=== PATIENT | male | born 1965 | race Caucasian/White ===

== ENCOUNTER → 2022-03-12 10:37 | Outpatient (BNVA) | payer OTHER, SELFPAY | PROVIDERS: PCP Internal Medicine; Visit Provider Psychiatry & Neurology Psychiatry | DX: F31.81 Bipolar II disorder (principal); F41.8 Other specified anxiety disorders; F10.21 Alcohol dependence, in remission; Z63.0 Problems in relationship with spouse or partner | CPT/HCPCS: 90833 ==

== ENCOUNTER → 2022-08-30 13:26 | Outpatient (BNVA) | payer OTHER, SELFPAY | PROVIDERS: PCP Internal Medicine; Visit Provider Psychiatry & Neurology Psychiatry | DX: Z13.89 Encounter for screening for other disorder (principal) ==

== ENCOUNTER 2022-12-05 12:52 | Outpatient (AMB) | payer OTHER, SELFPAY ==
--- NOTE | 2022-12-05 12:28 | A.OFFPSYCH_ITS ---
Intake Intake Visit Reasons: DEPRESSION Allergies iron [IRON] Allergy (Severe, Unverified 01/20/20 18:11) UNKNOWN HPI- Psychiatric Chief Complaint: DEPRESSION HPI Narrative: Patient seen in tele health appointment had asked him to come in person. Has been in the past over using clonazepam intermittently and we have discussed need to get appropriate treatment for bipolar disorder. Patient has been more agreeable states he occasionally uses Seroquel at bedtime but not taking it regularly. There is a lot of stress on his plate 1 daughter has an eating disorder he has been managing his children and his has a chronic cardiac condition according to him irritability and reactivity. He denies SI describes periods of decreased need for sleep in the past more periods of euphoria with decreased need for sleep and increased spending periods of anxiety dysphoria decreased need for sleep denies SI or psychotic symptoms the patient has in the past been on lithium Depakote Lamictal Trileptal. The patient does have a therapist He has been involved with and overwhelmed at times of medical complications from both spinal surgery and hip surgery Past Psychiatric History: 49 yo male returns for followup. Has not been seen since July 2014. The patient has been off Trileptal for the past 3 months. His a history of bipolar disorder, marked by periods of depression, and elevated mood state, particularly in the spring and summer. In the past. She would self medicate with alcohol, but has been sober for one year. He is meditating trying to get regular. Sleep, and manage his stress in such a way as to not trigger. His bipolar disorder. 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 Has been working in [email or web address] with drissDenise poole/ Pt is dealing with the of his father over past yr Pt has been in therapy still feels stable , balancing family and work. works pt supportive family and [facility]. 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 Mild expensive periods and mild depressive periods. He is generally able to manage his life trying to work at work balance. Things at home and work are going well. No psychotic episodes, no serious depressive episodes. Patient does have Seroquel as needed. He does use Klonopin for sleep and breakthrough hypomaniaPatient also uses for stroll for sleep. No recent use of mood stabilizing agents such as Trileptal past treatment with lithium. 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 His has been having significant medical difficulty in the patient was forced to resign from his work so he could be home in take care of t he children. His is currently out of work. He has generally not been taking Trileptal or SeroquelHe denies any civic significant depressive episodes some mild periods practically of the winter occasional hypomanic periods. 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 This is a tele health appointment patient gives consent. Patient has been overwhelmed and stress with multiple factors. His has problems with chronic pericarditis in supraventricular tachycardia and has chronic pain causing significant irritability, health problems and stress. The patient had also been in a hypomanic state and bought a number of expensive cars on credit and this has been somewhat crushing to him and has been overwhelming. Difficulty with sleep and anxiety. No thoughts of self-harm. Patient remains sober. Clonazepam has been helpful. Only taking limited amounts of Seroquel. Chronically has avoided mood stabilizing agents because of significant weight gain lethargy. 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 Has limited support and help at this time. Current note for 07/06/2020 Patient seen in psychiatric follow-up. The patient's mood at this point has been chronically anxious cycling with periods of agitation irritability periods of insomnia but patient basically maintaining his functioning ability to manage his business and his children. He is on clonazepam at HS strongly urged regular use of Seroquel at bedtime has not wanted to go back on other mood stabilizing agents such as lithium Depakote Tegretol. He denies periods of marked impulsive overspending he states he has been managing the family's finances he last year over spent on investment in exotic cars. Strongly urged regular sleep habits patient denies regular alcohol use which has been a problem in the past. 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 Patient has generally not been willing to take a mood stabilizing agent stated they were all to sedating made him lethargic or significant weight gain. He does intermittently take Seroquel we have talked about taking Seroquel on a regular basis had to try and train his sleep. Patient denies thoughts of harm to himself or others. He states he is able to function does count on his periods of hypomania past alcohol use and self- medication denies currently Current note for 02/27/2021 Patient seen in psychiatric follow-up Patient has been difficult time he tends to be quite stoic his had been out with surgery feeling overwhelmed taking care of her taking care of kids. Has had more anxiety ir ritability periods of cycling. He has not been willing essentially to use any treatment mood stabilizing agents has felt in the past that they were Sav have him emotionally or cause severe weight gain. The patient has periods of despair he denies any active thoughts of self-harm. His also been having significant pain and feels he has not been giving answers from his physician. May need hip surgery. Patient denies that he has been actively drinking. Patient continues to supervise his children has been dealing with his 's chronic illness and myocarditis pericarditis which they have been unable to manage. She had recent surgery this disc 0 okay. The patient with some periods of mixed states he denies any thoughts of self-harm. He does continue to sees therapist regularly we have discussed how over time bipolar disorder cannot just be managed through counseling alone Had bad experiences with medication the past he has been accepting low-dose Seroquel intermittently clonazepam. For hoping to train sleep. Patient again adamantly denies any thoughts of harm to himself or others despite feeling overwhelmed and upset over what orthopedic surgery may mean for him. current note for 04/11/21 Pt seen in f/u mood improved dealing with issues in better way pt on steroid taper did not become manic took 100 mg hs seroquel while on steroids . Patient's also participated stated patient was doing better cyst seen more able to handle things did have periods of anxiety with prednisone and agitation. We have discussed need for managing sleep-wake cycle and bipolar disorder. The patient did eventually require back surgery he is recovering Current note for June 06, 2021 Patient seen psychiatric follow-up. The patient continues to have some degree of anxiety feels somewhat overwhelmed. He did have recent surgery Mental Status Exam Mental Status Exam Patient Appearance: Well Grooomed Patient Orientation: Person, Place, Time and Situation Level of Consciousness: Awake Patient Behavior: Appropriate Mood Description: Constricted, Depressed and Anxious Affect Description: Constricted Patient Cognition Impaired: No Ability to Follow Directions: Good Speech Pattern: Clear Memory Description: Intact Hallucinations: None Delusions: Not Present Thought Process: Intact Thought Content: positive for Intact, positive for Logical, negative for Suicidal Ideation or negative for Homicidal Ideation Depressive Symptoms: Increased Anxiety and Unhappiness Judgement and Insight: Some degree of impaired judgment regarding not integrating greater treatment for his bipolar disorder Telehealth Telehealth Location of provider rendering services: practice address Location of patient: address on file Patient Identification confirmed using: Name, : Yes Telehealth method: video Patient verbally consented to billing insurance company: Yes Patient informed of any privacy concerns related to visit: Yes Minutes spent on Phone/Video with Pt.: 24 Assessment and Plan Assessment & Plan (1) Bipolar 2 disorder: Status: Acute Code(s): F31.81 - Bipolar II disorder Plan The patient able to do labs taking Seroquel on a more regular basis discuss trying to lower clonazepam to no more than 3 mg a day S the patient be seen in person next appointment discuss treatment options for bipolar disorder will also try to e-mail options for treatment patient denies that he has been abusing alcohol Counseling and coordination of Care Pt. Self Management counseling: Breathing and Exercise Medication management counseling: Effectiveness, Side effects and Adherence Diagnosis and Prognosis Counseling: Impact of diagnosis on life functions, Problematic behaviors secondary to diagnosis and Adequacy of current interventions Details: I spent [30] minutes reviewing the record, seeing the patient and documenting in the medical record. Counseling provided to the patient/caregiver as outlined below. Addressed patient/caregiver concerns regarding current medication regime including effective adherence. Addressed patient/caregiver concerns regarding diagnosis and prognosis including accuracy of diagnosis, prognosis over time, impact of diagnosis. Addressed patient/caregiver concerns regarding impact of recent stressors. 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 He lives with his and two children in [facility] [facility]. 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 His is a nurse has been verbally aggressive . He does have a history of alcohol abuse reportedly sober Substance History: hx alcohol abuse denies current Coding Level of Care Code Tele Est Pt Level 4 (09614) Diagnoses Bipolar 2 disorder F31.81
== END 2022-12-05 12:53 | disposition home or self-care (01) ==
LOC: HO.HOP 12:52
PROVIDERS: PCP Internal Medicine; Visit Provider Psychiatry & Neurology Psychiatry
DX: F31.81 Bipolar II disorder (principal)
CPT/HCPCS: 99214

== ENCOUNTER → 2022-12-05 12:52 | Outpatient (BNVA) | payer OTHER, SELFPAY | PROVIDERS: PCP Internal Medicine; Visit Provider Psychiatry & Neurology Psychiatry ==

== ENCOUNTER 2023-01-02 12:22 | Outpatient (AMB) | payer OTHER, SELFPAY ==
--- NOTE | 2023-01-02 12:33 | A.OFFPSYCH_ITS ---
Intake Intake Visit Reasons: depression Allergies iron [IRON] Allergy (Severe, Unverified 01/20/20 18:11) UNKNOWN HPI- Psychiatric Chief Complaint: depression HPI Narrative: Pt has chronic stress with hx bipolar dx when manic difficulty with sleep some euphoric periods buys things not drinking has mild pi periods of being loving and connected no gross disturbance in reality testing. Patient has over a long period of time used his hypomanic periods for work but has become more dysphoric episodes over time and has had increase is stressed with his who he states has chronic anxiety and irritability she is in counseling. They do also different how to raise the children at times is another stress. Patient denies ongoing depression but does admit to depressive episodes with irritability dysphoria helplessness hopelessness and self denigrating thoughts and other times patient can be grandiose or impulsive but to much less degree than he has previously. 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 He has been quite resistant to read trying a mood stabilizer over time because of past negative experiences. I have encourage patient to take a baseline dose of Seroquel in addition to clonazepam which we have been gradually lowering over time patient had escalated use up to 5+ mg a day we are trying to bring it down to no more than 2 mg daily and has been explained to him this in and of itself is not a treatment for bipolar disorder but may help regulate sleep at times. Patient denies alcohol use Past Psychiatric History: 49 yo male returns for followup. Has not been seen since July 2014. The patient has been off Trileptal for the past 3 months. His a history of bipolar disorder, marked by periods of depression, and elevated mood state, particularly in the spring and summer. In the past. She would self medicate with alcohol, but has been sober for one year. He is meditating trying to get regular. Sleep, and manage his stress in such a way as to not trigger. His bipolar disorder. 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 Has been working in [place] with [employer]der[employer]/ Pt is dealing with the of his father over past yr Pt has been in therapy still feels stable , balancing family and work. 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 Mild expensive periods and mild depressive periods. He is generally able to manage his life trying to work at work balance. Things at home and work are going well. No psychotic episodes, no serious depressive episodes. Patient does have Seroquel as needed. He does use Klonopin for sleep and breakthrough hypomaniaPatient also uses for stroll for sleep. No recent use of mood stabilizing agents such as Trileptal past treatment with lithium. 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 His has been having significant medical difficulty in the patient was forced to resign from his work so he could be home in take care of the children. His is currently out of work. He has generally not been taking Trileptal or SeroquelHe denies any civic significant depressive episodes some mild periods practically of the winter occasional hypomanic periods. 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 This is a tele health appointment patient gives consent. Patient has been overwhelmed and stress with multiple factors. His has problems with chronic pericarditis in supraventricular tachycardia and has chronic pain causing significant irritability, health problems and stress. The patient had also been in a hypomanic state and bought a number of expensive cars on credit and this has been somewhat crushing to him and has been overwhelming. Difficulty with sleep and anxiety. No thoughts of self-harm. Patient remains sober. Clonazepam has been helpful. Only taking limited amounts of Seroquel. Chronically has avoided mood stabilizing agents because of significant weight gain lethargy. 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 Has limited support and help at this time. Current note for 07/06/2020 Patient seen in psychiatric follow-up. The patient's mood at this point has been chronically anxious cycling with periods of agitation irritability periods of insomnia but patient basically maintaining his functioning ability to manage his business and his children. He is on clonazepam at HS strongly urged regular use of Seroquel at bedtime has not wanted to go back on other mood stabilizing agents such as lithium Depakote Tegretol. He denies periods of marked impulsive overspending he states he has been managing the family's finances he last year over spent on investment in exotic cars. Strongly urged regular sleep habits patient denies regular alcohol use which has been a problem in the past. 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 Patient has generally not been willing to take a mood stabilizing agent stated they were all to sedating made him lethargic or significant weight gain. He does intermittently take Seroquel we have talked about taking Seroquel on a regular basis had to try and train his sleep. Patient denies thoughts of harm to himself or others. He states he is able to function does count on his periods of hypomania past alcohol use and self- medication denies currently Current note for 02/27/2021 Patient seen in psychiatric follow-up Patient has been difficult time he tends to be quite stoic his had been out with surgery feeling overwhelmed taking care of her taking care of kids. Has had more anxiety irritability periods of cycling. He has not been willing essentially to use any treatment mood stabilizing agents has felt in the past that they were Sav have him emotionally or cause severe weight gain. The patient has periods of despair he denies any active thoughts of self-harm. His also been having significant pain and feels he has not been giving answers from his physician. May need hip surgery. Patient denies that he has been actively drinking. Patient continues to supervise his children has been dealing with his 's chronic illness and myocarditis pericarditis which they have been unable to manage. She had recent surgery this disc 0 okay. The patient with some periods of mixed states he denies any thoughts of self-harm. He does continue to sees therapist regularly we have discussed how over time bipolar disorder cannot just be managed through counseling alone Had bad experiences with medication the past he has been accepting low-dose Seroquel intermittently clonazepam. For hoping to train sleep. Patient again adamantly denies any thoughts of harm to himself or others despite feeling overwhelmed and upset over what orthopedic surgery may mean for him. current note for 04/11/21 Pt seen in f/u mood improved dealing with issues in better way pt on steroid taper did not become manic took 100 mg hs seroquel while on steroids . Patient's also participated stated patient was doing better cyst seen more able to handle things did have periods of anxiety with prednisone and agitation. We have discussed need for managing sleep-wake cycle and bipolar disorder. The patient did eventually require back surgery he is recovering Current note for June 06, 2021 Patient seen psychiatric follow-up. The patient continues to have some degree of anxiety feels somewhat overwhelmed. He did have recent surgery Mental Status Exam Mental Status Exam Patient Appearance: Well Grooomed Patient Orientation: Person, Place, Time and Situation Level of Consciousness: Awake Patient Behavior: Appropriate Mood Description: Constricted, Depressed and Anxious Affect Description: Appropriate, Constricted and Apprehensive Patient Cognition Impaired: No Ability to Follow Directions: Good Speech Pattern: Clear Memory Description: Intact Hallucinations: None Delusions: Not Present Thought Process: Intact Thought Content: positive for Intact, positive for Logical, negative for Suicidal Ideation or negative for Homicidal Ideation Depressive Symptoms: Increased Anxiety and Unhappiness Judgement and Insight: Some degree of impaired judgment regarding not integrating greater treatment for his bipolar disorder PHQ-9 19 denies any active self-harming thoughts are harm to his her children Assessment and Plan Assessment & Plan (1) Bipolar 2 disorder: Status: Acute Code(s): F31.81 - Bipolar II disorder (2) OCD (obsessive compulsive disorder): Status: Acute Code(s): F42.9 - Obsessive-compulsive disorder, unspecified (3) Alcohol use disorder in remission: Status: Acute Code(s): F10.91 - Alcohol use, unspecified, in remission Plan Patient given extensive literature on treatment of bipolar disorder and bipolar depression. This time reviewed with patient Seroquel as a treatment for bipolar depression and can increase the dose to 100 150 mg at bedtime reviewed risks benefits alternatives and side effects. No evidence of tardive dyskinesia. Patient has not previously tolerated oxcarbazepine Lamictal and reportedly has been on Depakote with weight gain and sedation. Patient to review literature if Seroquel on regular dosing not effective will discuss alternatives patient does continue in ongoing psychotherapy check labs patient does had reached the crisis team follow-up in the recommend more intensive treatment based on patient's condition literature given from [facility] to patient and other sources Orders: Orders Hemoglobin A1c 01/02/2381 - Bipolar II disorder Vitamin B12 and Folate 01/02/23 - Bipolar II disorder Complete Blood Count Auto Diff 01/02/23 - Bipolar II disorder Comprehensive Met. Panel 01/02/23 - Bipolar II disorder TSH reflex Free T4 01/02/23 - Bipolar II disorder Counseling and coordination of Care Details-Self Mgmt counseling: Discussed issues related to come chronic marital conflict comparing acceptance of treatment for bipolar disorder Diagnosis and Prognosis Counseling: Accuracy of diagnosis, Impact of diagnosis on life functions and Adequacy of current interventions Details: I spent [50] minutes reviewing the record, seeing the patient and documenting in the medical record. Counseling provided to the patient/caregiver as outlined below. Addressed patient/caregiver concerns regarding current medication regime including effective adherence. Addressed patient/caregiver concerns regarding diagnosis and prognosis including accuracy of diagnosis, prognosis over time, impact of diagnosis. Addressed patient/caregiver concerns regarding impact of recent stressors. 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 He lives with his and two children in [facility]. 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 His is a nurse has been verbally aggressive . He does have a history of alcohol abuse reportedly sober Substance History: hx alcohol abuse denies current Coding Level of Care Code Est Pt Level 3 (08845) Therapy 30m w/E&M (86694) Diagnoses Bipolar 2 disorder F31.81 OCD (obsessive compulsive disorder) F42.9 Alcohol use disorder in remission F10.91
== END 2023-01-02 14:30 | disposition home or self-care (01) ==
LOC: HO.HOP 12:22
PROVIDERS: PCP Nurse Practitioner Family; Visit Provider Psychiatry & Neurology Psychiatry
DX: F31.81 Bipolar II disorder (principal); F42.9 Obsessive-compulsive disorder, unspecified; F10.91 Alcohol use, unspecified, in remission
CPT/HCPCS: 90833; 99213

== ENCOUNTER → 2023-01-02 12:22 | Outpatient (BNVA) | payer OTHER, SELFPAY | PROVIDERS: PCP Nurse Practitioner Family; Visit Provider Psychiatry & Neurology Psychiatry ==

== ENCOUNTER 2023-04-01 11:44 | Outpatient (AMB) | payer OTHER, SELFPAY ==
--- NOTE | 2023-04-01 12:54 | MHC.OFFVISPS ---
Intake Intake Visit Reasons: depression Allergies iron [IRON] Allergy (Severe, Unverified 01/20/20 18:11) UNKNOWN Medication List - Last Reconciled 05/06/23 by Lavelle Michaels MD clonazepam (Klonopin) 0.5 - 1 mg (0.5 - 1 x 1 mg) PO TID PRN 30 days MDD 3 mg dorzolamide-timolol 22.3-6.8 mg/mL mL ophthalmic (eye) latanoprost 0.005% 0 drps ophthalmic (eye) pregabalin 100 mg PO BID quetiapine 100 mg PO BEDTIME PRN HPI- Psychiatric Chief Complaint: depression HPI Narrative: Pt has been doing ok has periods of down cycling and periods of hypomania not to the point that the yessenia significantly impacts his life he does have depressive episodes also deals with ocd denies psychotic episodes denies aggression or violence there is some chronic discord with his who he states can be highly reactive He has consistantl refused mood stabilizers from lithium depakote lamictal stating he had wt gain sluggidhness in the past he does take seroquel but often breaks thru usually only 50 mg also klonapin up to 1 bid down from higher doses he is general able to fx work take care of his kids his has chronic medical problems he is in regular therapy Past Psychiatric History: 49 yo male returns foacts his life r followup. Has not been seen since July 2014. The patient has been off Trileptal for the past 3 months. His a history of bipolar disorder, marked by periods of depression, and elevated mood state, particularly in the spring and summer. In the past. She would self medicate with alcohol, but has been sober for one year. He is meditating trying to get regular. Sleep, and manage his stress in such a way as to not trigger. His bipolar disorder. 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 works pt supportive family and [employer]. 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 Mild expensive periods and mild depressive periods. He is generally able to manage his life trying to work at work balance. Things at home and work are going well. No psychotic episodes, no serious depressive episodes. Patient does have Seroquel as needed. He does use Klonopin for sleep and breakthrough hypomaniaPatient also uses for stroll for sleep. No recent use of mood stabilizing agents such as Trileptal past treatment with lithium. 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 His has been having significant medical difficulty in the patient was forced to resign from his work so he could be home in take care of the children. His is currently out of work. He has generally not been taking Trileptal or SeroquelHe denies any civic significant depressive episodes some mild periods practically of the winter occasional hypomanic periods. 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 This is a tele health appointment patient gives consent. Patient has been overwhelmed and stress with multiple factors. His has problems with chronic pericarditis in supraventricular tachycardia and has chronic pain causing significant irritability, health problems and stress. The patient had also been in a hypomanic state and bought a number of expensive cars on credit and this has been somewhat crushing to him and has been overwhelming. Difficulty with sleep and anxiety. No thoughts of self-harm. Patient remains sober. Clonazepam has been helpful. Only taking limited amounts of Seroquel. Chronically has avoided mood stabilizing agents because of significant weight gain lethargy. No self-harming thoughts patient is working from home but also to taking care of his 3 children essentially part time. Has limited support and help at this time. Current note for 07/06/2020 Patient seen in psychiatric follow-up. The patient's mood at this point has been chronically anxious cycling with periods of agitation irritability periods of insomnia but patient basically maintaining his functioning ability to manage his business and his children. He is on clonazepam at HS strongly urged regular use of Seroquel at bedtime has not wanted to go back on other mood stabilizing agents such as lithium Depakote Tegretol. He denies periods of marked impulsive overspending he states he has been managing the family's finances he last year over spent on investment in exotic cars. Strongly urged regular sleep habits patient denies regular alcohol use which has been a problem in the past. 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 Patient has generally not been willing to take a mood stabilizing agent stated they were all to sedating made him lethargic or significant weight gain. He does intermittently take Seroquel we have talked about taking Seroquel on a regular basis had to try and train his sleep. Patient denies thoughts of harm to himself or others. He states he is able to function does count on his periods of hypomania past alcohol use and self-medication denies currently Current note for 02/27/2021 Patient seen in psychiatric follow-up Patient has been difficult time he tends to be quite stoic his had been out with surgery feeling overwhelmed taking care of her taking care of kids. Has had more anxiety irritability periods of cycling. He has not been willing essentially to use any treatment mood stabilizing agents has felt in the past that they were Sav have him emotionally or cause severe weight gain. The patient has periods of despair he denies any active thoughts of self-harm. His also been having significant pain and feels he has not been giving answers from his physician. May need hip surgery. Patient denies that he has been actively drinking. Patient continues to supervise his children has been dealing with his 's chronic illness and myocarditis pericarditis which they have been unable to manage. She had recent surgery this disc 0 okay. The patient with some periods of mixed states he denies any thoughts of self-harm. He does continue to sees therapist regularly we have discussed how over time bipolar disorder cannot just be managed through counseling alone Had bad experiences with medication the past he has been accepting low-dose Seroquel intermittently clonazepam. For hoping to train sleep. Patient again adamantly denies any thoughts of harm to himself or others despite feeling overwhelmed and upset over what orthopedic surgery may mean for him. current note for 04/11/21 Pt seen in f/u mood improved dealing with issues in better way pt on steroid taper did not become manic took 100 mg hs seroquel while on steroids . Patient's also participated stated patient was doing better cyst seen more able to handle things did have periods of anxiety with prednisone and agitation. We have discussed need for managing sleep-wake cycle and bipolar disorder. The patient did eventually require back surgery he is recovering Current note for June 06, 2021 Patient seen psychiatric follow-up. The patient continues to have some degree of anxiety feels somewhat overwhelmed. He did have recent surgery Mental Status Exam Mental Status Exam Patient Appearance: Well Grooomed Patient Orientation: Person, Place, Time and Situation Level of Consciousness: Awake Patient Behavior: Appropriate Behavior Comments: anxious in appearance Mood Description: Constricted, Depressed and Anxious Affect Description: Appropriate, Constricted and Apprehensive Patient Cognition Impaired: No Ability to Follow Directions: Good Speech Pattern: Clear Memory Description: Intact Hallucinations: None Delusions: Not Present Thought Process: Intact and Rumination Thought Content: positive for Intact, positive for Logical, negative for Suicidal Ideation or negative for Homicidal Ideation Depressive Symptoms: Increased Anxiety, Increased Irritability, Feelings of Worthlessness and Unhappiness Judgement: Fair Judgement and Insight: Some degree of impaired judgment regarding not integrating greater treatment for his bipolar disorder Assessment and Plan Assessment & Plan (1) Bipolar 2 disorder: Status: Acute Code(s): F31.81 - Bipolar II disorder Assessment and Plan: depressed irritable (2) OCD (obsessive compulsive disorder): Status: Acute Code(s): F42.9 - Obsessive-compulsive disorder, unspecified Plan Patient given material regarding bipolar disorder and medication need for regularly train sleep consider Vraylar patient refusing lithium Depakote Lamictal encourage seroquel 100 hs discussed crisis team php Medications: Refilled clonazepam (Klonopin) 0.5 - 1 mg (0.5 - 1 x 1 mg) PO TID PRN 90 tabs 1RF anxiety/manic sx 30 days MDD 3 mg Counseling and coordination of Care Details: I spent [] minutes reviewing the record, seeing the patient and documenting in the medical record. Counseling provided to the patient/caregiver as outlined below. Addressed patient/caregiver concerns regarding current medication regime including effective adherence. Addressed patient/caregiver concerns regarding diagnosis and prognosis including accuracy of diagnosis, prognosis over time, impact of diagnosis. Addressed patient/caregiver concerns regarding impact of recent stressors. 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 He lives with his and two children in [facility]. 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 His is a nurse has been verbally aggressive . He does have a history of alcohol abuse reportedly sober Substance History: hx alcohol abuse denies current Coding Level of Care Code Est Pt Level 3 (51257) Therapy 30m w/E&M (18958) Diagnoses Bipolar 2 disorder F31.81 OCD (obsessive compulsive disorder) F42.9
== END 2023-04-01 14:47 | disposition home or self-care (01) ==
LOC: HO.HOP 11:44
PROVIDERS: PCP Nurse Practitioner Family; Visit Provider Psychiatry & Neurology Psychiatry
DX: F31.81 Bipolar II disorder (principal); F42.9 Obsessive-compulsive disorder, unspecified
CPT/HCPCS: 90833; 99213

== ENCOUNTER 2023-04-01 11:44 | Outpatient (REF) | payer OTHER, SELFPAY ==
[2023-04-01 12:43] LABS: MANUAL DIFF FLAG NO
[2023-04-01 13:16] LABS: Basophils Absolute Auto 0.1 X10*3/uL (0.0-0.2); Basophils Percent Auto 0.9 % (0-2); Eosinophils Absolute Auto 0.1 X10*3/uL (0.0-0.4); Hematocrit 33.9 % (42.0-52.0); Hemoglobin 10.5 g/dl (14.0-18.0); Imm Gran Abs Auto 0.04 X10*3/uL (0.00-0.03); Imm Gran Pct Auto 0.5 % (0.0-0.4); Lymphocytes Absolute Auto 1.3 X10*3/uL (1.2-4.9); Lymphocytes Percent Auto 16.1 % (20-40); Mean Corpuscular Hemoglobin 19.4 pg (27.0-33.0); Mean Corpuscular Volume 62.8 fL (80.0-98.0); Monocytes Absolute Auto 0.6 X10*3/uL (0.1-1.2); Monocytes Percent Auto 7.5 % (2-11); NRBC Pct Auto 0.4 /100WBC (0.0-0.2); Platelet Count 179 X10*3/uL (160-400); Red Cell Distribution Width 19.4 % (11.0-16.0); White Blood Count 8.1 X10*3/uL (4.8-10.8)
[2023-04-01 13:43] LABS: Alanine Aminotransferase 34 U/L (0-40); Albumin Level 4.6 g/dL (3.5-5.0); Alkaline Phosphatase 65 U/L (39-117); Anion Gap 11 (12-20); Aspartate Amino Transferase 45 U/L (5-37); Bilirubin Total 1.5 mg/dL (0.0-1.0); Blood Urea Nitrogen 16 mg/dL (9-16); Calcium 9.9 mg/dL (8.4-10.2); Carbon Dioxide 29 mmol/L (22-29); Chloride 108 mmol/L (96-108); Estimated Glomerular Filt Rate > 60; Glucose Random 106 mg/dL (60-115); Potassium 4.6 mmol/L (3.3-5.1); Sodium 143 mmol/L (135-145); Total Protein 7.5 g/dL (6.5-8.0)
[2023-04-01 13:44] LABS: Estimated Average Glucose 88 mg/dL; Hemoglobin A1c % 4.7 % (<6.0)
[2023-04-01 13:58] LABS: TSH reflex Free T4 1.01 uIU/mL (0.32-4.0)
[2023-04-01 14:11] LABS: Folate 12.3 ng/mL (> or = 4.0); Vitamin B12 779 pg/mL (200-900)
== END 2023-04-01 11:45 | disposition home or self-care (01) ==
LOC: HO.LAB 11:44
PROVIDERS: PCP Nurse Practitioner Family; Visit Provider Psychiatry & Neurology Psychiatry
DX: F31.81 Bipolar II disorder (principal); Z79.899 Other long term (current) drug therapy
CPT/HCPCS: 36415; 80053; 82607; 82746; 83036; 84443; 85025

== ENCOUNTER 2023-08-25 11:29 | Outpatient (AMB) | payer OTHER, MEDICAID, SELFPAY ==
--- NOTE | 2023-08-25 11:53 | A.OFFPSYCH_ITS ---
Intake Intake Visit Reasons: depression Allergies iron [IRON] Allergy (Severe, Unverified 01/20/20 18:11) UNKNOWN HPI- Psychiatric Chief Complaint: depression HPI Narrative: Pt has been taking seroquel 50 mg hs less mood lability irritability has had chronic stress chronic illness has chronic sleep difficulties has had occ hypomania last about 1 week financially things are ok some financial trading has chronic hip back pain consistently refuses to consider ongoing mood stabilizing agents. Did not like how he felt in the past on lithium Depakote Past Psychiatric History: 49 yo male returns foacts his life r followup. Has not been seen since July 2014. The patient has been off Trileptal for the past 3 months. His a history of bipolar disorder, marked by periods of depression, and elevated mood state, particularly in the spring and summer. In the past. She would self medicate with alcohol, but has been sober for one year. He is meditating trying to get regular. Sleep, and manage his stress in such a way as to not trigger. His bipolar disorder. 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 [facility] Has been working in [employer] with drissDenise poole/ Pt is dealing with the of his father over past yr Pt has been in therapy still feels stable , balancing family and work. works pt supportive family and [employer]. 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 Mild expensive periods and mild depressive periods. He is generally able to manage his life trying to work at work balance. Things at home and work are going well. No psychotic episodes, no serious depressive episodes. Patient does have Seroquel as needed. He does use Klonopin for sleep and breakthrough hypomaniaPatient also uses for stroll for sleep. No recent use of mood stabilizing agents such as Trileptal past treatment with lithium. He states he is stable on current regimen is aware of how to reach this brief writer if needed Current note for 2017 patient seen psychotic follow-up. His has been having significant medical difficulty in the patient was forced to resign from his work so he could be home in take care of the children. His is currently out of work. He has generally not been taking Trileptal or SeroquelHe denies any civic significant depressive episodes some mild periods practically of the winter occasional hypomanic periods. 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 This is a tele health appointment patient gives consent. Patient has been overwhelmed and stress with multiple factors. His has problems with chronic pericarditis in supraventricular tachycardia and has chronic pain causing significant irritability, health problems and stress. The patient had also been in a hypomanic state and bought a number of expensive cars on credit and this has been somewhat crushing to him and has been overwhelming. Difficulty with sleep and anxiety. No thoughts of self-harm. Patient remains sober. Clonazepam has been helpful. Only taking limited amounts of Seroquel. Chronically has avoided mood stabilizing agents because of significant weight gain lethargy. 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 Has limited support and help at this time. Current note for 07/06/2020 Patient seen in psychiatric follow-up. The patient's mood at this point has been chronically anxious cycling with periods of agitation irritability periods of insomnia but patient basically maintaining his functioning ability to manage his business and his children. He is on clonazepam at HS strongly urged regular use of Seroquel at bedtime has not wanted to go back on other mood stabilizing agents such as lithium Depakote Tegretol. He denies periods of marked impulsive overspending he states he has been managing the family's finances he last year over spent on investment in exotic cars. Strongly urged regular sleep habits patient denies regular alcohol use which has been a problem in the past. No psychosis no periods of self-harm no marked periods of depression or yessenia no new medical problems Under ongoing stress trying to manage COVID working from home and no being his children with school [id number]_[id number]_Psychiatric Progress Note.pdf Page 3 of 6 current note for 08/21/20 Pt seen in f/u mood has been stressed anxious seroquel just as needed pt generally sleeping periods of hypomania tries to use that productively painInfrafone plays guitar refususes mood stabilizers has been able to sell some assets some periods of depression usually time limited no si current note for 10/27/20 Patient continues to be chronically stressed anxious dealing with both financial and interpersonal stress with his who has chronic pericarditis. Patient has generally not been willing to take a mood stabilizing agent stated they were all to sedating made him lethargic or significant weight gain. He does intermittently take Seroquel we have talked about taking Seroquel on a regular basis had to try and train his sleep. Patient denies thoughts of harm to himself or others. He states he is able to function does count on his periods of hypomania past alcohol use and self- medication denies currently Current note for 02/27/2021 Patient seen in psychiatric follow-up Patient has been difficult time he tends to be quite stoic his had been out with surgery feeling overwhelmed taking care of her taking care of kids. Has had more anxiety irritability periods of cycling. He has not been willing essentially to use any treatment mood stabilizing agents has felt in the past that they were Sav have him emotionally or cause severe weight gain. The patient has periods of despair he denies any active thoughts of self-harm. His also been having significant pain and feels he has not been giving answers from his physician. May need hip surgery. Patient denies that he has been actively drinking. Patient continues to supervise his children has been dealing with his 's chronic illness and myocarditis pericarditis which they have been unable to manage. She had recent surgery this disc 0 okay. The patient with some periods of mixed states he denies any thoughts of self-harm. He does continue to sees therapist regularly we have discussed how over time bipolar disorder cannot just be managed through counseling alone Had bad experiences with medication the past he has been accepting low-dose Seroquel intermittently clonazepam. For hoping to train sleep. Patient again adamantly denies any thoughts of harm to himself or others despite feeling overwhelmed and upset over what orthopedic surgery may mean for him. current note for 04/11/21 Pt seen in f/u mood improved dealing with issues in better way pt on steroid taper did not become manic took 100 mg hs seroquel while on steroids . Patient's also participated stated patient was doing better cyst seen more able to handle things did have periods of anxiety with prednisone and agitation. We have discussed need for managing sleep-wake cycle and bipolar disorder. The patient did eventually require back surgery he is recovering Current note for June 06, 2021 Patient seen psychiatric follow-up. The patient continues to have some degree of anxiety feels somewhat overwhelmed. He did have recent surgery Mental Status Exam Mental Status Exam Patient Appearance: Well Grooomed Patient Orientation: Person, Place, Time and Situation Level of Consciousness: Awake Patient Behavior: Appropriate Behavior Comments: anxious in appearance Mood Description: Constricted, Depressed and Anxious Affect Description: Appropriate, Constricted and Apprehensive Patient Cognition Impaired: No Ability to Follow Directions: Good Speech Pattern: Clear Memory Description: Intact Hallucinations: None Delusions: Not Present Thought Process: Intact and Rumination Thought Content: positive for Intact, positive for Logical, negative for Suicidal Ideation or negative for Homicidal Ideation Depressive Symptoms: Increased Anxiety, Increased Irritability, Feelings of Worthlessness and Unhappiness Judgement: Fair Judgement and Insight: Some degree of impaired judgment regarding not integrating greater treatment for his bipolar disorder ongoing has accepted low-dose Seroquel Assessment and Plan Assessment & Plan (1) Bipolar 2 disorder: Status: Acute Code(s): F31.81 - Bipolar II disorder (2) Alcohol use disorder in remission: Status: Acute Code(s): F10.91 - Alcohol use, unspecified, in remission (3) OCD (obsessive compulsive disorder): Status: Acute Code(s): F42.9 - Obsessive-compulsive disorder, unspecified Plan Patient seen psychiatric follow-up. Has done reading regarding medication for bipolar disorder. Has chronically not wanted to be on mood stabilizing agents had side effects past. He has been taking Seroquel 50 mg regularly at bedtime. Aware of diabetes risk tardive dyskinesia wrist. No abnormal movements noted on exam we did discuss options of Trileptal and Lamictal unclear if there was allergy in the past. He is chronic anxiety relationship to his marriage in some degree of chronic discord but they do remain strongly connected. Patient every 2 months does have a few days of hypomania this remains to some degree in check the impressions had not been overly deep but patient does tend to ruminate ab out communication his and being on the same page does have some degree of chronic insomnia would consider sleep study discussed with patient and discuss use of 1 ramelteon to see if we could retrain sleep urged patient to consider retrial of Lamictal or oxcarbazepine Medications: New ramelteon 8 mg PO BEDTIME PRN 30 tabs 2RF sleep 30 days Counseling and coordination of Care Details-Self Mgmt counseling: Issues related to bipolar disorder its effects on his life and marriage and his ongoing anxieties regarding parental interactions Medication management counseling: Effectiveness and Side effects Details: I spent [40] minutes reviewing the record, seeing the patient and documenting in the medical record. Counseling provided to the patient/caregiver as outlined below. Addressed patient/caregiver concerns regarding current medication regime including effective adherence. Addressed patient/caregiver concerns regarding diagnosis and prognosis including accuracy of diagnosis, prognosis over time, impact of diagnosis. Addressed patient/caregiver concerns regarding impact of recent stressors. 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 He lives with his and two children in [facility]. He does manage in [employer]. His is a nurse has been verbally aggressive . He does have a history of alcohol abuse reportedly sober Substance History: hx alcohol abuse denies current Coding Level of Care Code Est Pt Level 3 (91109) Therapy 30m w/E&M (02691) Diagnoses Bipolar 2 disorder F31.81 Alcohol use disorder in remission F10.91 OCD (obsessive compulsive disorder) F42.9
== END 2023-08-25 14:33 | disposition home or self-care (01) ==
LOC: HO.HOP 11:29
PROVIDERS: PCP Nurse Practitioner Family; Visit Provider Psychiatry & Neurology Psychiatry
DX: F31.81 Bipolar II disorder (principal); F10.91 Alcohol use, unspecified, in remission; F42.9 Obsessive-compulsive disorder, unspecified
CPT/HCPCS: 90833; 99213

== ENCOUNTER → 2023-08-25 11:29 | Outpatient (BNVA) | payer OTHER, MEDICAID, SELFPAY | PROVIDERS: PCP Nurse Practitioner Family; Visit Provider Psychiatry & Neurology Psychiatry ==

== ENCOUNTER 2023-12-30 11:13 | Outpatient (AMB) | payer OTHER, MEDICAID, SELFPAY ==
--- OUTSIDE RECORDS SUMMARY | 2023-12-30 11:15 | XMS_ITS | Continuity of Care Document ---
Author Organization [facility] Adams Navarro Lux Address [address] [place] [address]- Care Team Providers Care Real Estate Services Administrator Name Role Phone Paulino Yusuf DO Primary Care Physician Encounter [facility] Date(s): 11/28/23 - 12/28/23 [facility] Adult [address] [place] [address]- Allergies, Adverse Reactions, Alerts Substance Reaction Severity Status Latex Active Immunizations Given and Recorded Vaccine Date Status Refusal Reason influenza virus vaccine, inactivated 02/10/23 Ozzy rded influenza virus vaccine, inactivated 02/26/22 Ozzy rded influenza virus vaccine, inactivated 01/15/21 Ozzy rded influenza virus vaccine, inactivated 01/12/20 Ozzy rded influenza virus vaccine, inactivated 02/02/19 Ozzy rded influenza virus vaccine, inactivated 01/20/18 Ozzy rded influenza virus vaccine, inactivated 02/07/17 Ozzy rded influenza virus vaccine, inactivated 03/24/16 Ozzy rded SARS-CoV-2 (COVID-19) mRNA BNT-162b2 vac 12/20/20 Recorded SARS-CoV-2 (COVID-19) mRNA BNT-162b2 vac 06/26/20 Recorded SARS-CoV-2 (COVID-19) mRNA BNT-162b2 vac 06/05/20 Recorded tetanus/diphtheria/pertussis, acel(Tdap) 1 12/12/20 Given pneumococcal 23-valent vaccine 12/14/09 Given 1Result Comment: [id number] Medications Albuterol (Eqv-ProAir HFA) 90 mcg/inh inhalation aerosol 2 puffs, Inhalation, Every 6 hours, PRN NEEDED FOR WHEEEZING OR FOR SHORTNESS OF BREATH, # 8.5 Gm, 0 Refills, Maintenance, 06/07/23 10:19:00 EST, [facility], 25, INHALE 2 PUFFS EVERY 6 HOURS NEEDED FOR WHEEEZING OR FOR SHORTNESS OF DESIREE... Start Date: 06/07/23 Status: Ordered Clobetasol (Eqv-Temovate) 0.05% topical cream See Instructions, APPLY TO HANDS 2 TIMES A DAY NEEDED FOR ECZEMA, # 60 Gm, 1 Refills, Maintenance, 12/23/23 15:40:00 EDT, [facility], APPLY TO HANDS 2 TIMES A DAY NEEDED FOR ECZEMA, 172, cm, 12/04/23 6:56:00 EDT, Height Start Date: 12/23/23 Status: Ordered clonazePAM 1 mg oral tablet 1 tablet = 1 mg, By Mouth, 2 times a day, 0 Refills, Maintenance, 01/09/23 10:47:00 EDT, Tablet, Partial fill upon patient request if the prescription is for a schedule II opioid drug. Start Date: 01/09/23 Status: Ordered Flonase Allergy Relief 50 mcg/inh nasal spray See Instructions, 1 sprays Daily in each nostril, # 16 Gm, 2 Refills, Maintenance, 10/14/23 16:02:00 EDT, [facility], Partial fill upon patient request if the prescription is for a schedule II opioid drug., 172, cm, 10/09/23 9:59:00 EDT, Height Start Date: 10/14/23 Status: Ordered Glucosamine By Mouth, 0 Refills, Maintenance, 03/12/21 12:08:00 EST, Partial fill upon patient request if the prescription is for a schedule II opioid drug. Start Date: 03/12/21 Status: Ordered Loratadine-D 12 Hour oral tablet, extended release 1 tablet, By Mouth, Every 12 hours, # 60 tablet, 1 Refills, Maintenance, 10/02/23 8:04:00 EDT, [facility], 30, TAKE ONE TABLET BY MOUTH EVERY 12 HOURS, 172, cm, 08/14/23 17:05:00 EDT, Height Start Date: 10/02/23 Status: Ordered mometasone 110 mcg/inh inhalation aerosol powder 1, puffs, Inhalation, Daily in PM, # 0.24 Gm, Refills 0, Tot. Refills 0, Maintenance, 05/29/23 19:11:00 EST, Aerosol, Route to Pharmacy Electronically, [id number], [facility], 172, cm, 04/22/23 19:18:00 EST, Height Start Date: 05/29/23 Status: Ordered Multivitamin Daily, 0 Refills, Maintenance, 01/09/23 10:48:00 EDT, Partial fill upon patient request if the prescription is for a schedule II opioid drug. Start Date: 01/09/23 Status: Ordered omeprazole 20 mg oral enteric coated capsule 1 capsule, By Mouth, Daily, # 30 capsule, 5 Refills, Maintenance, 12/13/23 17:09:00 EDT, [facility], 172, cm, 12/04/23 6:56:00 EDT, Height Start Date: 12/13/23 Status: Ordered pregabalin 100 mg oral capsule 1 capsule = 100 mg, By Mouth, 2 times a day, # 180 capsule, 1 Refills, Maintenance, 12/04/23 7:42:00 EDT, Capsule, [facility] # [facility], Partial fill upon patient request if the prescription is for a schedule II opioid drug., 172, cm, 12/04/23 6:56:00... Start Date: 12/04/23 Status: Ordered QUEtiapine 100 mg oral tablet See Instructions, 1 TAB DAILY PRN, Refills 0, Maintenance, 08/16/19 10:59:00 EDT, Instructions Replace Required Details Start Date: 08/16/19 Status: Ordered sildenafil 50 mg oral tablet 1 tablet = 50 mg, By Mouth, Daily, 1 hour before sexual activity, # 5 tablet, 5 Refills, Maintenance, 12/04/23 7:21:00 EDT, Tablet, [facility] # [facility], Partial fill upon patient request if the prescription is for a schedule II opioid drug., 172, cm,... Start Date: 12/04/23 Status: Ordered Vitamin E By Mouth, Daily, 0 Refills, Maintenance, 03/12/21 12:08:00 EST, Partial fill upon patient request if the prescription is for a schedule II opioid drug. Start Date: 03/12/21 Status: Ordered Problem List Condition Confirmation Course Effective Dates Status Health St atus Informant Arthritis of right hip Confirmed Active Arthritis of left hip Confirmed Active Pain of back and left lower extremity Confirmed Active Beta thalassemia, heterozygous Confirmed Active Bipolar disorder Confirmed Active Trochanteric bursitis of right hip Confirmed Active Left hip pain Confirmed Active Status post total hip replacement, right Confirmed Active Irritable bowel syndrome with constipation Confirmed Active Social History Social History Type Response Tobacco Other: lifetime nons moker. Sex Patient Care team information Care Team Personnel Name: Winnie Morgan RN Position: [facility] Onco RN Member Role: Primary Care Nurse Name: Paulino Yusuf DO Position: [facility] Physician - Primary Care Member Role: PCP Address: Address: [address] [place] [address] [place] [address]- Care Team Related Persons Name: ZAFAR BAI Address: home [address] [place] [address] Name: ALANNA HERRERA Address: home [address] [place] [address]
--- OUTSIDE RECORDS SUMMARY | 2023-12-30 11:15 | XMS_ITS | Continuity of Care Document ---
Author Organization [facility] Ramon Lux lt Address [address] [place] [address]- Care Team Providers Care Training And Development Rep Name Role Phone Shawn MURRAY, Bailey Sherman Primary Care Physician [place] [facility] [place] [facility] [address] [place] [address]- Attending Physician: Bailey Escobar NP Referring Physician: Carly BUCKNER, Mark Galeas Allergies, Adverse Reactions, Alerts Substance Reaction Severity Status Latex Active Immunizations Given and Recorded Vaccine Date Status Refusal Reason influenza virus vaccine, inactivated 02/26/22 Ozzy rded [...] pneumococcal 23-valent vaccine 12/14/09 Given 1Result Comment: [id number] Medications Clobetasol (Eqv-Temovate) 0.05% topical cream See Instructions, APPLY TO HANDS 2 TIMES A DAY NEEDED FOR ECZEMA, # 60 Gm, 1 Refills, Physician Stop 04/11/23 21:00:00 EST, 04/11/22 17:40:00 EST, [facility], 15, APPLY TO HANDS 2 TIMES ADAY NEEDED FOR ECZEMA, 172, cm, 03/12/22 10:31:0... Start Date: 04/11/22 Stop Date: 04/11/23 Status: Ordered fluticasone 50 mcg/inh nasal spray See Instructions, INSTILL 1 SPRAY INTO EACH NOSTRIL TWICE A DAY, # 16 mL, 5 Refills, 04/15/22 16:31:00 EST, [facility], 30, INSTILL 1 SPRAY INTO EACH NOSTRIL TWICE A DAY, 172, cm, 03/12/22 10:31:00 EST, Height, 78.7, kg, 04/30/21 13:46:00 EST... Start Date: 04/15/22 Status: Ordered Glucosamine By Mouth, 0 Refills, Maintenance, 03/12/21 12:08:00 EST, Partial fill upon patient request if the prescription is for a schedule II opioid drug. Start Date: 03/12/21 Status: Ordered QUEtiapine 100 mg oral tablet See Instructions, 1 TAB DAILY PRN, Refills 0, Maintenance, 08/16/19 10:59:00 EDT, Instructions Replace Required Details Start Date: 08/16/19 Status: Ordered Vitamin E By Mouth, Daily, [...] Confirmed Active Left hip pain Confirmed Active Irritable bowel syndrome with constipation Confirmed Active Social History Social History Type Response Tobacco Other: lifetime nons moker. Sex Patient Care team information Care Team Personnel Name: Bailey Escobar NP Position: [facility] PCO Associate Professional Member Role: PCP Address: Address: [address] [place] [id number]- [place] Name: Winnie Morgan RN Position: [facility] Onco RN Member Role: Primary Care Nurse Care Team Related Persons Name: ZAFAR BAI Address: home [address] [place] [address] Name: ALANNA HERRERA Address: [address] [address]
--- OUTSIDE RECORDS SUMMARY | 2023-12-30 11:15 | XMS_ITS | Continuity of Care Document ---
Author Organization [facility] Address [address] [place] [address]- Care Team Providers Care Sales Representative Sales Manager Name Role Phone Bailey Escobar NP Primary Care Physician [facility] Date[facility]): 04[facility]/23 - 05/22/23 [facility] [address] [place] [address] Allergies, Adverse Reactions, Alerts Substance Reaction Severity [...] pneumococcal 23-valent vaccine 12/14/09 Given 1Result Comment: [id number] Medications Albuterol (Eqv-ProAir HFA) 90 mcg/inh inhalation aerosol 2 puffs, Inhalation, Every 6 hours, PRN NEEDED FOR WHEEEZING OR FOR SHORTNESS OF BREATH, # 8.5 Gm, 0 Refills, Maintenance, 05/13/23 15:38:00 EST, [facility], 25, INHALE 2 PUFFS EVERY 6 HOURS NEEDED FOR WHEEEZING OR FOR SHORTNESS OF DESIREE... Start Date: 05/13/23 Status: Ordered Clobetasol (Eqv-Temovate) 0.05% topical cream See Instructions, APPLY TO HANDS 2 TIMES A DAY NEEDED FOR ECZEMA, # 60 Gm, 1 Refills, Physician Stop 01/29/24 21:00:00 EDT, 01/28/23 14:39:00 EDT, [facility], 15, APPLY TO HANDS 2 TIMES ADAY NEEDED FOR ECZEMA, 172, cm, 01/09/23 10:42:0... Start Date: 01/28/23 Stop Date: 01/29/24 Status: Ordered Clobetasol (Eqv-Temovate) 0.05% topical cream See Instructions, APPLY TO HANDS 2 TIMES A DAY NEEDED FOR ECZEMA, # 60 Gm, 1 Refills, Maintenance, 04/03/23 8:16:00 EST, [facility], APPLY TO HANDS 2 TIMES A DAY NEEDED FOR ECZEMA, 172, cm, 03/25/23 14:14:00 EST, Height, 78.7, kg, 04/30... Start Date: 04/03/23 Status: Ordered clonazePAM 1 mg oral tablet 1 tablet = 1 mg, By Mouth, 2 times a day, 0 Refills, Maintenance, 01/09/23 10:47:00 EDT, Tablet, Partial fill upon patient request if the prescription is for a schedule II opioid drug. Start Date: 01/09/23 Status: Ordered Flovent Diskus 50 mcg/inh inhalation powder 1 each, Inhalation, 2 times a day, # 60 each, 0 Refills, Maintenance, 04/22/23 9:53:00 EST, Powder,[facility], Partial fill upon patient request if the prescription is for a schedule II opioid drug., 1 each Inhalation 2 times a day, 172, cm,... Start Date: 04/22/23 Status: Ordered fluticasone 50 mcg/inh nasal spray See Instructions, INSTILL 1 SPRAY INTO EACH NOSTRIL TWICE A DAY, # 16 mL, 11 Refills, 10/07/22 11:03:00 EDT, [facility], 30, INSTILL 1 SPRAY INTO EACH NOSTRIL TWICE A DAY, 172, cm, 10/07/22 10:45:00 EDT, Height, 78.7, kg, 04/30/21 13:46:00 ES... Start Date: 10/07/22 Status: Ordered Glucosamine By Mouth, 0 Refills, Maintenance, 03/12/21 12:08:00 EST, Partial fill upon patient request if the prescription is for a schedule II opioid drug. Start Date: 03/12/21 Status: Ordered Multivitamin Daily, 0 Refills, Maintenance, 01/09/23 10:48:00 EDT, Partial fill upon patient request if the prescription is for a schedule II opioid drug. Start Date: 01/09/23 Status: Ordered pregabalin 50 mg oral capsule 1 capsule = 50 mg, By Mouth, 3 times a day, # 90 capsule, 2 Refills, Maintenance, 04/15/23 14:47:00EST, Capsule, [facility], Partial fill upon patient request if the prescription is for a schedule II opioid drug., 172, cm, 04/12/23 14:20:00... Start Date: 04/15/23 Status: Ordered QUEtiapine 100 mg oral tablet [...] Team Personnel Name: Bailey Escobar NP Position: S PCO Associate Professional Member Role: PCP Address: Address: [address] [place] [address]- Name: Eddie RN, Winnie Escoto Position: [facility] Onco RN Member Role: Primary Care Nurse Care Team Related Persons Name: ZAFAR BAI Address: home [address] [place] [address] Name: ALANNA HERRERA Address: home [address] [address]
--- OUTSIDE RECORDS SUMMARY | 2023-12-30 11:15 | XMS_ITS | Continuity of Care Document ---
Author Organization [facility]on Lux lt Address [address] [place] [address]- Care Team Providers Care Compliance Review Specialist Name Role Phone Carole BUCKNER, Joey Evans Primary Care Physician [facility] Date[facility]s): 03/22/21 - 04/21/21 [facility] Adult [address] [place] [address]- Allergies, Adverse Reactions, Alerts Substance Reaction Severity Status Latex Active Immunizations Given and Recorded Vaccine Date Status Refusal Reason influenza virus vaccine, inactivated 01/15/21 Ozzy rded [...] pneumococcal 23-valent vaccine 12/14/09 Given 1Result Comment: [id number] Medications Clobetasol (Eqv-Temovate) 0.05% topical cream See Instructions, APPLY TO HANDS 2 TIMES A DAY NEEDED FOR ECZEMA, # 60 Gm, 5 Refills, [id number], 15, APPLY TO HANDS 2 TIMES A DAY NEEDED FOR ECZEMA, 172.72, cm, 12/14/20 10:46:00 EDT, Height Start Date: 12/22/20 Status: Ordered clonazepam 1 mg oral tablet 1 tablet, By Mouth, 3 times a day, 0 Refills, Maintenance, Tablet Start Date: 12/13/09 Status: Ordered fluticasone 50 mcg/inh nasal spray See Instructions, INSTILL 1 SPRAY INTO EACH NOSTRIL TWICE A DAY, # 16 mL, 5 Refills, [facility], 30, INSTILL 1 SPRAY INTO EACH NOSTRIL TWICE A DAY, 172.72, cm, 03/12/21 12:06:00 EST, Height Start Date: 04/11/21 Status: Ordered Glucosamine By Mouth, 0 Refills, [...] Date: 03/12/21 Status: Ordered Problem List Condition Effective Dates Status Health Status Inform ant Arthritis of right hip(Confirmed) Active Arthritis of left hip(Confirmed) Active Pain of back and left lower extremity(Confirmed) Active Beta thalassemia, heterozygous(Confirmed) Active Trochanteric bursitis of rig ht hip(Confirmed) Active Left hip pain(Confirmed) Active Irritable bowel syndrome wit h constipation(Confirmed) Active Social History Social History Type Response Tobacco Other: lifetime nons moker. Sex
--- OUTSIDE RECORDS SUMMARY | 2023-12-30 11:15 | XMS_ITS | Continuity of Care Document ---
Author Organization [facility] Lux lt Address [address] [place] [address]- Care Team Providers Care Occupational Therapist Name Role Phone Joey Lam MD Primary Care Physician [place] [facility] [place] Date(s): 11/29/19 - 12/06/19 [facility] Adult [address] [place] [address]- [facility] Encounter Diagnosis Right groin pain(Discharge Diagnosis) - 11/29/19 Attending Physician: Joey Lam MD Allergies, Adverse Reactions, Alerts Substance Reaction Severity Status Latex Active Immunizations Given and Recorded Vaccine Date Status Refusal Reason pneumococcal 23-valent vaccine 12/14/09 Given Medications clonazepam 1 mg oral tablet 1 tablet, By Mouth, 3 times a day, 0 Refills, Maintenance, Tablet Start Date: 12/13/09 Status: Ordered Dulcolax 10 mg rectal suppository 1 supp = 10 mg, Rectally, Daily, PRN for constipation, # 10 supp, 0 Refills, Maintenance, 08/16/19 11:01:00 EDT, Suppository, [id number] Start Date: 08/16/19 Status: Ordered QUEtiapine 100 mg oral tablet Refills 0, Maintenance, 08/16/19 10:59:00 EDT Start Date: 08/16/19 Status: Ordered Problem List Condition Effective Dates Status Health Status Inform ant Beta thalassemia, heterozygous(Confirmed) Active Irritable bowel syndrome wit h constipation(Confirmed) Active Diagnosis Diagnosis Type Effective Dates Health Status Cl inical Service Informant Right groin pain Discharge Diagnosis 11/29/19 Social History Social History Type Response Tobacco Other: lifetime nons moker. Sex
--- OUTSIDE RECORDS SUMMARY | 2023-12-30 11:15 | XMS_ITS | Continuity of Care Document ---
Author Organization [facility] Lux Address [address] [place] [address]- Care Team Providers Care Category Analyst Name Role Phone Bailey Escobar NP Primary Care Physician [phone] Encounter [facility] [place] [place] Date(s): 10/07/22 - 10/14/22 [facility] Adult [address] [place] [address]- Encounter Diagnosis Radiculopathy of leg(Discharge Diagnosis) - 10/07/22 Status post total hip replacement, right(Discharge Diagnosis) - 10/07/22 Attending Physician: Bailey Escobar NP Allergies, Adverse Reactions, Alerts Substance Reaction Severity [...] pneumococcal 23-valent vaccine 12/14/09 Given 1Result Comment: [id number] Medications Clobetasol (Eqv-Temovate) 0.05% topical cream See Instructions, APPLY TO HANDS 2 TIMES A DAY NEEDED FOR ECZEMA, # 60 Gm, 1 Refills, Physician Stop 04/11/23 21:00:00 EST, 04/11/22 17:40:00 EST, [facility], 15, APPLY TO HANDS 2 TIMES ADAY NEEDED FOR ECZEMA, 172, cm, 03/12/22 10:31:0... Start Date: 04/11/22 Stop Date: 04/11/23 Status: Ordered fluticasone 50 mcg/inh nasal spray See Instructions, INSTILL 1 SPRAY INTO EACH NOSTRIL TWICE A DAY, # 16 mL, 11 Refills, 10/07/22 11:03:00 EDT, [facility], 30, INSTILL 1 SPRAY [...] Condition Confirmation Course Effective Dates Status Health at Informant Arthritis of right hip Confirmed Active Arthritis of left hip Confirmed Active Pain of back and left lower extremity Confirmed Active Beta thalassemia, heterozygous Confirmed Active Bipolar disorder Confirmed Active Trochanteric bursitis of right hip Confirmed Active Left hip pain Confirmed Active Status post total hip replacement, right Confirmed Active Irritable bowel syndrome with constipation Confirmed Active Diagnosis Diagnosis Type Effective Dates Health Status Clinical Service Informant Radiculopathy of leg Discharge Diagnosis 10/07/22 Status post total hip replacement, right Discharge Diagnosis 10/07/22 Vital Signs Most recent to oldest [Reference Range]: 1 Height 172 cm (10/07/22 10:45 AM) Weight 83.4 kg (10/07/22 10:45 AM) Oxygen Saturation [94-100 %] 100 % (10/07/22 10:45 AM) Pulse Rate [55-90 bpm] 85 bpm (10/07/22 10:45 AM) Body Mass Index [18.5-24.99 kg/m2] 28.19 kg/m2 *H* (10/07/22 10:45 AM) Blood Pressure [90-138/55-84 mm Hg] 126/ 82mm Hg (10/07/22 10:45 AM) Blood pressure sites Arm, right (10/07/22 10:45 AM) Weight Obtained Via Standing scale (10/07/22 10:45 AM) Social History Social History Type Response Tobacco Other: lifetime nons moker. Sex Patient Care team information Care Team Personnel Name: Bailey Escobar NP Position: [facility] PCO Associate Professional Member Role: PCP Address: Address: [address] [place] [address]- Name: Winnie Morgan RN Position: [facility] Onco RN Member Role: Primary Care Nurse Care Team Related Persons Name: ZAFAR BAI Address: home [address] [place] [address] Name: ALANNA HERRERA Address: home [address] [address]
--- OUTSIDE RECORDS SUMMARY | 2023-12-30 11:15 | XMS_ITS | Continuity of Care Document ---
Author Organization [facility] ter Address [address] [place] [address]- Care Team Providers Care Final Inspector Paper Name Role Phone Shawn MURRAY, Bailey Whti Primary Care Physician [phone] Encounter [facility] [place] Date(s): 07/04/22 - 08/03/[address] [address]- Attending Physician: Not on Staff, Attending MD Admitting Physician: Not on Staff, Admitting MD Referring Physician: Not on Staff, Referring MD Allergies, Adverse Reactions, Alerts Substance Reaction [...] pneumococcal 23-valent vaccine 12/14/09 Given 1Result Comment: [id number] Medications Clobetasol (Eqv-Temovate) 0.05% topical cream See Instructions, APPLY TO HANDS 2 TIMES A DAY NEEDED FOR ECZEMA, # 60 Gm, 1 Refills, Physician Stop 04/11/23 21:00:00 EST, 04/11/22 17:40:00 EST, [facility], 15, APPLY TO HANDS 2 TIMES ADAY NEEDED FOR ECZEMA, 172, cm, 03/12/22 10:31:0... Start Date: 04/11/22 Stop Date: 04/11/23 Status: Ordered fluticasone 50 mcg/inh nasal spray See Instructions, INSTILL 1 SPRAY INTO EACH NOSTRIL TWICE A DAY, # 16 mL, 5 Refills, 04/15/22 16:31:00 EST, [facility], 30, INSTILL 1 SPRAY [...] Team Personnel Name: Bailey Escobar NP Position: [facility] PCO Associate Professional Member Role: PCP Address: Address: [address] [place] [address]- Name: Winnie Morgan RN Position: [facility] Onco RN Member Role: Primary Care Nurse Care Team Related Persons Name: ZAFAR BAI Address: home [address] [place] [address] Name: ALANNA HERRERA Address: [address] [address]
--- OUTSIDE RECORDS SUMMARY | 2023-12-30 11:15 | XMS_ITS | Continuity of Care Document ---
Author Organization [facility] Navarro Lux lt Address [address] [place] [address]- Care Team Providers Care Excelsior Cutter Name Role Phone Joey Lam MD Primary Care Physician [phone] En[place] [facility] [place] Date(s): 06/22/20 - 07/22/20 [facility] Adult [address] [place] [address]- Allergies, Adverse Reactions, Alerts Substance Reaction Severity Status Latex Active Immunizations Given and Recorded Vaccine Date Status Refusal Reason pneumococcal 23-valent vaccine 12/14/09 Given Medications Clobetasol (Eqv-Temovate) 0.05% topical cream See Instructions, APPLY TO HANDS 2 TIMES A DAY NEEDED FOR ECZEMA, # 60 Gm, 1 Refills, Maintenance, 06/23/20 16:29:00 EST, [facility], 30, APPLY TO HANDS 2 TIMES A DAY NEEDED FOR ECZEMA Start Date: 06/23/20 Status: Ordered clonazepam 1 mg oral tablet 1 tablet, By Mouth, 3 times a day, 0 Refills, Maintenance, Tablet Start Date: 12/13/09 Status: Ordered Dulcolax 10 mg rectal suppository 1 supp = 10 mg, Rectally, Daily, PRN for constipation, # 10 supp, 0 Refills, Maintenance, 08/16/19 11:01:00 EDT, Suppository, [id number] Start Date: 08/16/19 Status: Ordered QUEtiapine 100 mg oral tablet Refills 0, Maintenance, 08/16/19 10:59:00 EDT Start Date: 08/16/19 Status: Ordered Problem List Condition Effective Dates Status Health Status Inform ant Beta thalassemia, heterozygous(Confirmed) Active Irritable bowel syndrome wit h constipation(Confirmed) Active Social History Social History Type Response Tobacco Other: lifetime nons moker. Sex
--- OUTSIDE RECORDS SUMMARY | 2023-12-30 11:15 | XMS_ITS | Continuity of Care Document ---
Author Organization [facility] Ramon Lux Address [address] [place] [address]- Care Team Providers Care Convex Grinder Operator Name Role Phone Carole BUCKNER, Joey Evans Primary Care Physician [facility] Date(s): 03/19/21 - 04/18/21 [facility] Adult [address] [place] [address]- Allergies, Adverse Reactions, Alerts Substance Reaction Severity [...] pneumococcal 23-valent vaccine 12/14/09 Given 1Result Comment: [id number] Medications Clobetasol (Eqv-Temovate) 0.05% topical cream See Instructions, APPLY TO HANDS 2 TIMES A DAY NEEDED FOR ECZEMA, # 60 Gm, 5 Refills, [facility], 15, APPLY TO HANDS 2 TIMES A [...] A DAY, # 16 mL, 5 Refills, [facility], 30, INSTILL 1 SPRAY INTO EACH NOSTRIL [...]
--- OUTSIDE RECORDS SUMMARY | 2023-12-30 11:15 | XMS_ITS | Continuity of Care Document ---
Author Organization [facility] Ramon Lux Address [address] [place] [address]- Care Team Providers Care Reference Assistant Name Role Phone Shawn MURRAY, Bailey Sherman Primary Care Physician [place] [facility] [place] 01/09[place]23 - 01/16/23 [facility] Adult [address] [place] [address]- Encounter Diagnosis Radiculopathy of leg(Discharge Diagnosis) - 01/09/23 Bipolar disorder(Discharge Diagnosis) - 01/11/23 Attending Physician: Bailey Escobar NP Referring Physician: Mark Carroll MD Allergies, Adverse Reactions, Alerts Substance Reaction [...] pneumococcal 23-valent vaccine 12/14/09 Given 1Result Comment: [id number] Medications Clobetasol (Eqv-Temovate) 0.05% topical cream See Instructions, APPLY TO HANDS 2 TIMES A DAY NEEDED FOR ECZEMA, # 60 Gm, 1 Refills, Physician Stop 04/06/23 21:00:00 EST, 12/05/22 16:31:00 EDT, [facility], 15, APPLY TO HANDS 2 TIMES ADAY NEEDED FOR ECZEMA, 172, cm, 10/07/22 10:45:0... Start Date: 12/05/22 Stop Date: 04/06/23 Status: Ordered clonazePAM 1 mg oral tablet 1 tablet = 1 mg, By Mouth, 2 times a day, 0 Refills, Maintenance, 01/09/23 10:47:00 EDT, Tablet, Partial fill upon patient request if the prescription is for a schedule II opioid drug. Start Date: 01/09/23 Status: Ordered fluticasone 50 mcg/inh nasal spray See Instructions, INSTILL 1 SPRAY INTO EACH NOSTRIL TWICE A DAY, # 16 mL, 11 Refills, 10/07/22 11:03:00 EDT, [facility], 30, INSTILL 1 SPRAY [...] tablet, By Mouth, Every 12 hours, # 30 tablet, 3 Refills, Acute 05/05/23 21:00:00 EST, 12/12/22 13:44:00 EDT, [facility], Partial fill upon patient request if the prescription is for a schedule II opioid drug., 1 tablet By Mouth Every 12 ho... Start Date: 12/12/22 Stop Date: 05/05/23 Status: Ordered Multivitamin Daily, 0 Refills, Maintenance, 01/09/23 10:48:00 EDT, Partial fill upon patient request if the prescription is for a schedule II opioid drug. Start Date: 01/09/23 Status: Ordered pregabalin 50 mg oral capsule 1 capsule = 50 mg, By Mouth, 3 times a day, # 90 capsule, 0 Refills, Maintenance, 01/09/23 11:04:00EDT, Capsule, [facility], Partial fill upon patient request if the prescription is for a schedule II opioid drug., 172, cm, 01/09/23 10:42:00... Start Date: 01/09/23 Status: Ordered QUEtiapine 100 mg oral tablet [...] Service Informant Radiculopathy of leg Discharge Diagnosis 01/09/23 Bipolar disorder Discharge Diagnosis 01/11/23 Vital Signs Most recent to oldest [Reference Range]: 1 Height 172 cm (01/09/23 10:42 AM) Weight 82.1 kg (01/09/23 10:42 AM) Oxygen Saturation [94-100 %] 100 % (01/09/23 10:42 AM) Pulse Rate [55-90 bpm] 77 bpm (01/09/23 10:42 AM) Body Mass Index [18.5-24.99 kg/m2] 27.75 kg/m2 *H* (01/09/23 10:42 AM) Blood Pressure [90-138/55-84 mm Hg] 111/ 67mm Hg (01/09/23 10:42 AM) Blood pressure sites Arm, left (01/09/23 10:42 AM) Weight Obtained Via Standing scale (01/09/23 10:42 AM) Social History Social History Type Response Tobacco Other: lifetime nons moker. Sex Note * Jamil , Cathy: PERFORM, SIGN, VERIFY Event Display: Patient Education/Instruction Authored Date: [id number] [facility] *BMP [facility] [place] Clinical Summary Name JES BAI Age 57 Years 1965 PCP Shawn MURRAY, Bailey Sherman PCP Visit Date 01/09/2023 10:38:00 Additional Instructions: Scheduled Appointments?? Future Appointments ?*BMP??[facility] [address] ?Phone:??--?Fax:??-- ?Appt. Date:??03/13/2023?9:50 AM ?Scheduled Provider:??Shawn MURRAY, Bailey Sherman Follow-Up Instructions ?? Diagnosis Radiculopathy, site unspecified; Polyneuropathy, unspecified Medications: Please continue your medications until treatment is completed or stopped by your provider. Discuss any questions related to medications with your provider. Medications to Continue Taking That Have Changed [facility], [address] [place], [place] [id number], [phone] - Pregabalin (pregabalin 50 mg oral capsule) 1 capsule Oral 3 times a day. Refills: 0. Next Dose: Medications to Continue with No Changes These medications were not printed or sent to your pharmacy Clobetasol Topical (Clobetasol (Eqv-Temovate) 0.05% topical cream) APPLY TO HANDS 2 TIMES A DAY NEEDED FOR ECZEMA. Refills: 1. Next Dose: Clonazepam (clonazePAM 1 mg oral tablet) 1 tab(s) Oral twice a day. Next Dose: Fluticasone Nasal (fluticasone 50 mcg/inh nasal spray) INSTILL 1 SPRAY INTO EACH NOSTRIL TWICE A DAY. Refills: 11. Next Dose: Glucosamine Oral. Next Dose: Loratadine-Pseudoephedrine (Loratadine-D 12 Hour oral tablet, extended release) 1 tab(s) Oral every12 hours. Refills: 3. Next Dose: Multivitamin Daily. Next Dose: Quetiapine (QUEtiapine 100 mg oral tablet) 1 TAB DAILY PRN. Next Dose: Vitamin E Oral Daily. Next Dose: Allergy Info:?? Latex Medications Given This Visit Future Orders ?No future orders Vital Signs Height 172 cm Weight 82.1 kg BMI 27.75 kg/m2 Blood Pressure 111 mm Hg/67 mm Hg Temperature Pulse Rate 77 bpm Respiratory Rate 02 Sat Mode of Delivery 100 %/ You can now view a summary of your hospital visit from the comfort of your home through a free online portal called [employer]. [employer] is a website that allows you to securely view your medical information including discharge summary, medications and follow-up visits. ??You can alsosend a secure electronic message to your doctor???s office to request appointments, renew medications or just ask a question. You can enroll at [email or web address] [email or web address] or register during your next office visit. Disclaimer:?? The information provided is of a general nature and is intended to be used in conjunction with the recommendations and advice of your health care practitioner. ??Every effort has been made to ensure that the information provided is accurate and complete at the time it is provided to you however, as your needs change, or, as new ??information becomes available, different or additional instructions may be required. If you have questions, please consult with your primary care provider or pharmacist, as appropriate. ??This information is not intended to serve as substitution for assessment and evaluation by a qualified health care provider. If you do not have a primary care provider, you may find a [facility] provider by calling [facility] [employer] at [phone]. [facility], in keeping with [facility] guidance, no longer requires face masks for staff, patientsor visitors in most situations. Similar to time spent indoors at other locations, there is the chance that you were exposed to respiratory viruses during your time with us (such as flu or COVID-19).? If you develop symptoms concerning for a viral respiratory infection, please seek testing (and treatment if indicated) from your medical provider or home test kit. For information about the plan of care including goals and instructions for your diagnosis, please see the patient education orders section of this document. Patient Education Materials?? The content of this educational material or handout may have been modified, supplemented, or adapted from its original content and format to support your individualized medical care. Patient Care team information Care Team Personnel Name: Bailey Escobar NP Position: [facility] PCO Associate Professional Member Role: PCP Address: Address: [address] [place], [place] - Name: Winnie Morgan RN Position: [facility] Onco RN Member Role: Primary Care Nurse Care Team Related Persons Name: ZAFAR BAI Address: home [address] [place], [place] Name: ALANNA HERRERA Address: home [address] [address]
--- OUTSIDE RECORDS SUMMARY | 2023-12-30 11:15 | XMS_ITS | Continuity of Care Document ---
Author Organization [facility] Lux Address [address] [place] [address]- Care Team Providers Care Greenskeeper Name Role Phone Shawn MURRAY, Bailey Sherman Primary Care Physician [phone] Encounter [facility] Date(s): 01/09/23 - 02/08/23 [facility] Adult [address] [place] [address]- Attending Physician: Admtr, Angel8 Admitting Physician: Admtr, Ar8 Referring Physician: Admtr, Ar8 Allergies, Adverse Reactions, Alerts Substance Reaction Severity [...] pneumococcal 23-valent vaccine 12/14/09 Given 1Result Comment: [id number] Medications Clobetasol (Eqv-Temovate) 0.05% topical cream See Instructions, APPLY TO HANDS 2 TIMES A DAY NEEDED FOR ECZEMA, # 60 Gm, 1 Refills, Physician Stop 01/29/24 21:00:00 EDT, 01/28/23 14:39:00 EDT, [facility] # [facility], 15, APPLY TO HANDS 2 TIMES ADAY NEEDED FOR ECZEMA, 172, cm, 01/09/23 10:42:0... Start Date: 01/28/23 Stop Date: 01/29/24 Status: Ordered clonazePAM 1 mg oral tablet [...] 16 mL, 11 Refills, 10/07/22 11:03:00 EDT, [facility] # [facility], 30, INSTILL 1 SPRAY [...] hours, # 30 tablet, 3 Refills, Acute 05/06/23 21:00:00 EST, 02/03/23 18:46:00 EDT, [facility] # [facility], Partial fill upon patient request if the prescription is for a schedule II opioid drug., 1 tablet By Mouth Every 12 ho... Start Date: 02/03/23 Stop Date: 05/06/23 Status: Ordered Multivitamin Daily, 0 Refills, Maintenance, [...] Response Tobacco Other: lifetime nons moker. Sex Laboratory * Event Display: Non Lab Results Authored Date: * Event Display: Non Lab Results Authored Date: Patient Care team information Care Team Personnel Name: Shawn MURRAY, Bailey Sherman Position: [facility]O Associate Professional Member Role: PCP Address: Address: [address] [place] [address] - Name: Winnie Morgan RN Position: [facility] Onco RN Member Role: Primary Care Nurse Care Team Related Persons Name: ZAFAR BAI Address: home [address] [place] [address] Name: ALANNA HERRERA Address: home [address] [address]
--- OUTSIDE RECORDS SUMMARY | 2023-12-30 11:15 | XMS_ITS | Continuity of Care Document ---
Author Organization [facility] Adams Navarro Lux lt Address [address] [place] [address]- Care Team Providers Care V Belt Builder Name Role Phone Bailey Escobar NP Primary Care Physician [facility]counter [facility] Date(s): 04/02/23 - 05/02/23 [facility] Adams Navarro Adult [address] [place] [address]- Allergies, Adverse Reactions, Alerts Substance Reaction Severity [...] pneumococcal 23-valent vaccine 12/14/09 Given 1Result Comment: [id number] Medications Albuterol (Eqv-ProAir HFA) 90 mcg/inh inhalation aerosol See Instructions, INHALE 2 PUFFS EVERY 6 HOURS NEEDED FOR WHEEEZING OR FOR SHORTNESS OF BREATH, # 8.5 Gm, 0 Refills, Maintenance, 04/22/23 18:35:00 EST, [facility] # [facility], 25, INHALE 2 PUFFS EVERY 6 HOURS NEEDED FOR WHEEEZING OR FOR SHORTNESS... Start Date: 04/22/23 Status: Ordered Clobetasol (Eqv-Temovate) 0.05% topical cream See Instructions, APPLY TO HANDS 2 TIMES A DAY NEEDED FOR ECZEMA, # 60 Gm, 1 Refills, Physician Stop 01/29/24 21:00:00 EDT, 01/28/23 14:39:00 EDT, [facility] # [facility], 15, APPLY TO HANDS 2 TIMES ADAY NEEDED FOR ECZEMA, 172, cm, 01/09/23 10:42:0... Start Date: 01/28/23 Stop Date: 01/29/24 Status: Ordered Clobetasol (Eqv-Temovate) 0.05% topical cream See Instructions, APPLY TO HANDS 2 TIMES A DAY NEEDED FOR ECZEMA, # 60 Gm, 1 Refills, Maintenance, 04/03/23 8:16:00 EST, [facility] # [facility], APPLY TO HANDS 2 [...] each, 0 Refills, Maintenance, 04/22/23 9:53:00 EST, [facility] # [facility], Partial fill upon patient request if the prescription is for a schedule II opioid drug., 1 each Inhalation 2 times a day, 172, cm,... Start Date: 04/22/23 Status: Ordered fluticasone 50 mcg/inh nasal spray See Instructions, INSTILL 1 SPRAY INTO EACH NOSTRIL TWICE A DAY, # 16 mL, 11 Refills, 10/07/22 11:03:00 EDT, [facility] # [facility], 30, INSTILL 1 SPRAY [...] Acute 05/06/23 21:00:00 EST, 02/03/23 18:46:00 EDT, [facility] # [facility], Partial fill [...] capsule, 2 Refills, Maintenance, 04/15/23 14:47:00EST, Capsule, [facility] # [facility], Partial [...] Team Personnel Name: Bailey Escobar NP Position: [facility] PCO Associate Professional Member Role: PCP Address: Address: [address] [place] [address]- Name: Winnie Morgan RN Position: [facility] Onco RN Member Role: Primary Care Nurse Care Team Related Persons Name: ZAFAR BAI Address: home [address] [place] [address] Name: ALANNA HERRERA Address: home [address] [facility] [place] [address]
--- OUTSIDE RECORDS SUMMARY | 2023-12-30 11:15 | XMS_ITS | Continuity of Care Document ---
Author Organization [facility] Adams Navarro Lux lt Address [address] [place] [address]- Care Team Providers Care Financial Sales Manager Name Role Phone Bailey Escobar NP Primary Care Physician [phone] Encounter [facility] Date(s): 04/11/23 - 05/11/23 [facility] Adams Navarro Adult [address] [place] [address]- Allergies, Adverse Reactions, Alerts Substance Reaction Severity [...] pneumococcal 23-valent vaccine 12/14/09 Given 1Result Comment: [id number] Medications Albuterol (Eqv-ProAir HFA) 90 mcg/inh inhalation aerosol See Instructions, INHALE 2 PUFFS EVERY 6 HOURS NEEDED FOR WHEEEZING OR FOR SHORTNESS OF BREATH, # 8.5 Gm, 0 Refills, Maintenance, 04/22/23 18:35:00 EST, [facility] # [facility], 25, INHALE 2 PUFFS EVERY 6 HOURS NEEDED FOR WHEEEZING OR FOR SHORTNESS... Start Date: 04/22/23 Status: Ordered Clobetasol (Eqv-Temovate) 0.05% topical cream See Instructions, APPLY TO HANDS 2 TIMES A DAY NEEDED FOR ECZEMA, # 60 Gm, 1 Refills, Physician Stop 01/29/24 21:00:00 EDT, 01/28/23 14:39:00 EDT, [facility] # [facility], 15, APPLY TO HANDS 2 TIMES ADAY NEEDED FOR ECZEMA, 172, cm, 01/09/23 10:42:0... Start Date: 01/28/23 Stop Date: 01/29/24 Status: Ordered Clobetasol (Eqv-Temovate) 0.05% topical cream See Instructions, APPLY TO HANDS 2 TIMES A DAY NEEDED FOR ECZEMA, # 60 Gm, 1 Refills, Maintenance, 04/03/23 8:16:00 EST, [facility] # [facility], APPLY TO HANDS 2 [...] each, 0 Refills, Maintenance, 04/22/23 9:53:00 EST, Pow[facility] # [facility], Partial fill upon patient [...] Associate Professional Member Role: PCP Address: Address: [address] [place] [address]- Name: Eddie HONEYCUTT, Winnie Escoto Position: S On[facility] RN Member Role: Primary Care Nurse Care Team Related Persons Name: ZAFAR BAI Address: home [address] [place] [address] Name: ALANNA HERRERA Address: home [address] [address]
--- OUTSIDE RECORDS SUMMARY | 2023-12-30 11:15 | XMS_ITS | Continuity of Care Document ---
Author Organization [facility] Adams Navarro Lux lt Address [address] [place] [address]- Care Team Providers Care Marine Insurance Claim Examiner Name Role Phone Bailey Escobar NP Primary Care Physician Encounter [facility] Date(s): 04/11/23 - 04/18/23 [facility] Adams Navarro Adult [address] [place] [address]- Encounter Diagnosis Acute sinusitis(Discharge Diagnosis) - 04/12/23 Acute bronchitis(Discharge Diagnosis) - 04/12/23 Attending Physician: Keli Murray Allergies, Adverse Reactions, Alerts Substance Reaction Severity [...] pneumococcal 23-valent vaccine 12/14/09 Given 1Result Comment: [id number] Medications Clobetasol (Eqv-Temovate) 0.05% topical cream See Instructions, APPLY TO HANDS 2 TIMES A DAY NEEDED FOR ECZEMA, # 60 Gm, 1 Refills, Physician Stop 01/29/24 21:00:00 EDT, 01/28/23 14:39:00 EDT, [facility] # [facility], 15, APPLY TO HANDS 2 TIMES ADAY NEEDED FOR ECZEMA, 172, cm, 01/09/23 10:42:0... Start Date: 01/28/23 Stop Date: 01/29/24 Status: Ordered Clobetasol (Eqv-Temovate) 0.05% topical cream See Instructions, APPLY TO HANDS 2 TIMES A DAY NEEDED FOR ECZEMA, # 60 Gm, 1 Refills, Maintenance, 04/03/23 8:16:00 EST, [facility] # [facility], APPLY TO HANDS 2 [...] 16 mL, 11 Refills, 10/07/22 11:03:00 EDT, [facility] # [facility], 30, INSTILL 1 SPRAY [...] Acute 05/06/23 21:00:00 EST, 02/03/23 18:46:00 EDT, [facility] # [facility], Partial fill upon [...] capsule, 2 Refills, Maintenance, 04/15/23 14:47:00EST, Capsule, [facility] # 50, Partial fill upon patient request if the prescription is for a schedule II opioid drug., 172, cm, 04/12/23 14:20:00... Start Date: 04/15/23 Status: Ordered ProAir HFA 90 mcg/inh inhalation aerosol with adapter 2, puffs, Inhalation, Every 6 hours, PRN, # 8.5 Gm, Refills 0, Tot. Refills 0, Maintenance, 04/04/23 11:52:00 EST, Aerosol, Route to Pharmacy Electronically, [id number], [facility] # [facility], 172, cm, 03/25/23 14:14:00 EST, He... Start Date: 04/04/23 Status: Ordered QUEtiapine 100 mg oral tablet [...] Effective Dates Health Status Clinical Service Informant Acute sinusitis Discharge Diagnosis 04/12/23 Acute bronchitis Discharge Diagnosis 04/12/23 Vital Signs Most recent to oldest [Reference Range]: 1 Height 172 cm (04/11/23 7:20 AM) Social History Social History Type Response Tobacco Other: lifetime nons moker. Sex Patient Care team information Care Team Personnel Name: Shawn MURRAY, Bailey Sherman Position: [facility] PCO Associate Professional Member Role: PCP Address: Address: [address] [place] [address]- Name: Eddie HONEYCUTT, Winnie Escoto Position: [facility] Onco RN Member Role: Primary Care Nurse Care Team Related Persons Name: ZAFAR BAI Address: home [address] [place] [address] Name: ALANNA HERRERA Address: home [address] [facility] [place] [address]
--- OUTSIDE RECORDS SUMMARY | 2023-12-30 11:15 | XMS_ITS | Continuity of Care Document ---
Author Organization [facility] Adams Navarro Lux lt Address [address] [place] [address]- Care Team Providers Care Electrical Control Assembler Name Role Phone Bailey Escobar NP Primary Care Physician [facility] Date(s): 09/01/23 - 10/01/23 [facility] Adams Navarro Adult [address] [place] [address]- Allergies, Adverse Reactions, Alerts Substance Reaction Severity [...] pneumococcal 23-valent vaccine 12/14/09 Given 1Result Comment: [id number] Medications Albuterol (Eqv-ProAir HFA) 90 mcg/inh inhalation aerosol 2 puffs, Inhalation, Every 6 hours, PRN NEEDED FOR WHEEEZING OR FOR SHORTNESS OF BREATH, # 8.5 Gm, 0 Refills, Maintenance, 06/07/23 10:19:00 EST, [facility] # [facility], 25, INHALE 2 PUFFS EVERY 6 HOURS NEEDED FOR WHEEEZING OR FOR SHORTNESS OF DESIREE... Start Date: 06/07/23 Status: Ordered Clobetasol (Eqv-Temovate) 0.05% topical cream See Instructions, APPLY TO HANDS 2 TIMES A DAY NEEDED FOR ECZEMA, # 60 Gm, 1 Refills, Maintenance, 05/27/23 10:45:00 EST, [facility] # [facility], APPLY TO HANDS 2 TIMES A DAY NEEDED FOR ECZEMA, 172, cm, 04/22/23 19:18:00 EST, Height Start Date: 05/27/23 Status: Ordered clonazePAM 1 mg oral tablet 1 tablet = 1 mg, By Mouth, 2 times a day, 0 Refills, Maintenance, 01/09/23 10:47:00 EDT, Tablet, Partial fill upon patient request if the prescription is for a schedule II opioid drug. Start Date: 01/09/23 Status: Ordered Flonase Allergy Relief 50 mcg/inh nasal spray See Instructions, 1 sprays Daily in each nostril, # 16 Gm, 0 Refills, Maintenance, 08/14/23 15:20:00 EDT, [facility] # [facility], Partial fill upon patient request if the prescription is for a schedule II opioid drug., 172, cm, 06/02/23 8:13:00 EST, Height Start Date: 08/14/23 Status: Ordered fluticasone 50 mcg/inh nasal spray See Instructions, INSTILL 1 SPRAY INTO EACH NOSTRIL TWICE A DAY, # 16 mL, 11 Refills, 10/07/22 11:03:00 EDT, [facility] # [facility], 30, INSTILL 1 SPRAY [...] Mouth, Every 12 hours, # 60 tablet, 0 Refills, Maintenance, 09/01/23 14:18:00 EDT, [facility] # 50, Partial fill upon patient request if the prescription is for a schedule II opioid drug., 1 tablet By Mouth Every 12 hours, 172, cm, 04... Start Date: 09/01/23 Status: Ordered mometasone 110 mcg/inh inhalation aerosol powder 1, puffs, Inhalation, Daily in PM, # 0.24 Gm, Refills 0, Tot. Refills 0, Maintenance, 05/29/23 19:11:00 EST, Aerosol, Route to Pharmacy Electronically, [id number], [facility], 172, cm, 04/22/23 19:18:00 EST, Height Start Date: 05/29/23 Status: Ordered Multivitamin Daily, 0 Refills, Maintenance, 01/09/23 10:48:00 EDT, Partial fill upon patient request if the prescription is for a schedule II opioid drug. Start Date: 01/09/23 Status: Ordered omeprazole 20 mg oral enteric coated capsule 1 capsule, By Mouth, Daily, # 30 capsule, 5 Refills, Maintenance, 07/07/23 9:22:00 EST, [facility] # [facility], 172, cm, 06/02/23 8:13:00 EST, Height Start Date: 07/07/23 Status: Ordered pregabalin 50 mg oral capsule 1 capsule = 50 mg, By Mouth, 3 times a day, # 90 capsule, 2 Refills, Maintenance, 07/11/23 15:35:00EST, Capsule, [facility] # 50, Partial fill upon patient request if the prescription is for a schedule II opioid drug., 172, cm, 06/02/23 8:13:00 E... Start Date: 07/11/23 Status: Ordered QUEtiapine 100 mg oral tablet [...] Personnel Name: Shawn MURRAY, Bailey Sherman Position: [facility] PCO Associate Professional Member Role: PCP Address: Address: [address] [place] [address]- Name: Winnie Morgan RN Position: [facility] Onco RN Member Role: Primary Care Nurse Care Team Related Persons Name: ZAFAR BAI Address: home [address] [place] [id number] Name: ALANNA HERRERA Address: home [address] [address]
--- OUTSIDE RECORDS SUMMARY | 2023-12-30 11:15 | XMS_ITS | Continuity of Care Document ---
Author Organization [facility] Ramon Lux lt Address [address] [place] [address]- Care Team Providers Care Corporate Controller Name Role Phone Bailey Escobar NP Primary Care Physician [phone] [facility] Date(s): 08/14/23 - 09/13/23 [facility] Adams Navarro Adult [address] [place] [address]- Attending Physician: Admtr, Angel8 Admitting Physician: Admtr, [...] pneumococcal 23-valent vaccine 12/14/09 Given 1Result Comment: [id number] Medications Albuterol (Eqv-ProAir HFA) 90 mcg/inh inhalation aerosol 2 puffs, Inhalation, Every 6 hours, PRN NEEDED FOR WHEEEZING OR FOR SHORTNESS OF BREATH, # 8.5 Gm, 0 Refills, Maintenance, 06/07/23 10:19:00 EST, [facility] # [facility], 25, INHALE 2 PUFFS EVERY 6 HOURS NEEDED FOR WHEEEZING OR FOR SHORTNESS OF DESIREE... Start Date: 06/07/23 Status: Ordered Clobetasol (Eqv-Temovate) 0.05% topical cream See Instructions, APPLY TO HANDS 2 TIMES A DAY NEEDED FOR ECZEMA, # 60 Gm, 1 Refills, Maintenance, 05/27/23 10:45:00 EST, [facility] # [facility], APPLY TO HANDS 2 [...] Gm, 0 Refills, Maintenance, 08/14/23 15:20:00 EDT, [facility] # [facility], Partial fill upon patient request if the prescription is for a schedule II opioid drug., 172, cm, 06/02/23 8:13:00 EST, Height Start Date: 08/14/23 Status: Ordered fluticasone 50 mcg/inh nasal spray See Instructions, INSTILL 1 SPRAY INTO EACH NOSTRIL TWICE A DAY, # 16 mL, 11 Refills, 10/07/22 11:03:00 EDT, [facility] # [facility], 30, INSTILL 1 SPRAY [...] tablet, 0 Refills, Maintenance, 09/01/23 14:18:00 EDT, [facility] # [facility], Partial fill [...] 19:11:00 EST, Aerosol, Route to Pharmacy Electronically, [id number], [facility], 172, cm, 04/22/23 [...] capsule, 5 Refills, Maintenance, 07/07/23 9:22:00 EST, [facility] # 50, 172, cm, 06/02/23 8:13:00 EST, Height Start Date: 07/07/23 Status: Ordered pregabalin 50 mg oral capsule 1 capsule = 50 mg, By Mouth, 3 times a day, # 90 capsule, 2 Refills, Maintenance, 07/11/23 15:35:00EST, Capsule, [facility] # 50, Partial fill upon [...] Personnel Name: Shawn MURRAY, Bailey Sherman Position: [facility] PCO Associate Professional Member Role: PCP Address: Address: [address] [place] [address]- Name: Winnie Morgan RN Position: [facility] Onco RN Member Role: Primary Care Nurse Care Team Related Persons Name: ZAFAR BAI Address: home [address] [place] [address] Name: LAANNA HERRERA Address: home [address] [address]
--- OUTSIDE RECORDS SUMMARY | 2023-12-30 11:15 | XMS_ITS | Continuity of Care Document ---
Author Organization [facility] Adams Navarro Lux lt Address [address] [place] [address]- Care Team Providers Care Solutions Sales Executive Name Role Phone Bailey Escobar NP Primary Care Physician [facility]s): 04/10/23 - 05/10/23 [facility] Adams Navarro Adult [address] [place] [address]- Allergies, Adverse Reactions, Alerts Substance Reaction Severity [...] pneumococcal 23-valent vaccine 12/14/09 Given 1Result Comment: [id number] Medications Albuterol (Eqv-ProAir HFA) 90 mcg/inh inhalation aerosol See Instructions, INHALE 2 PUFFS EVERY 6 HOURS NEEDED FOR WHEEEZING OR FOR SHORTNESS OF BREATH, # 8.5 Gm, 0 Refills, Maintenance, 04/22/23 18:35:00 EST, [facility] # [facility], 25, INHALE 2 PUFFS EVERY 6 HOURS NEEDED FOR WHEEEZING OR FOR SHORTNESS... Start Date: 04/22/23 Status: Ordered Clobetasol (Eqv-Temovate) 0.05% topical cream See Instructions, APPLY TO HANDS 2 TIMES A DAY NEEDED FOR ECZEMA, # 60 Gm, 1 Refills, Physician Stop 01/29/24 21:00:00 EDT, 01/28/23 14:39:00 EDT, [facility] # [facility], 15, APPLY TO HANDS 2 TIMES ADAY NEEDED FOR ECZEMA, 172, cm, 01/09/23 10:42:0... Start Date: 01/28/23 Stop Date: 01/29/24 Status: Ordered Clobetasol (Eqv-Temovate) 0.05% topical cream See Instructions, APPLY TO HANDS 2 TIMES A DAY NEEDED FOR ECZEMA, # 60 Gm, 1 Refills, Maintenance, 04/03/23 8:16:00 EST, [facility] # [facility], APPLY TO HANDS 2 [...] each, 0 Refills, Maintenance, 04/22/23 9:53:00 EST, Powder,[facility] # [facility], Partial fill upon patient [...] Associate Professional Member Role: PCP Address: Address: [address] [place] [address]- Name: Eddie HONEYCUTT, Winnie Escoto Position: [facility] RN Member Role: Primary Care Nurse Care Team Related Persons Name: ZAFAR BAI Address: home [address] [place] [address] Name: ALANNA HERRERA Address: home [address] [address]
--- OUTSIDE RECORDS SUMMARY | 2023-12-30 11:15 | XMS_ITS | Continuity of Care Document ---
Author Organization [facility] Ramon Lux lt Address [address] [place] [address]- Care Team Providers Care Missile Facilities Repairer Name Role Phone Shawn MURRAY, Bailey Sherman Primary Care Physician [phone] [place] [facility] [place](s): 06/13/22 - 07/13/22 [facility] Adult [address] [place] [address]- Attending Physician: Bailey Escobar NP Referring Physician: [...] pneumococcal 23-valent vaccine 12/14/09 Given 1Result Comment: [id number] Medications Clobetasol (Eqv-Temovate) 0.05% topical cream See Instructions, APPLY TO HANDS 2 TIMES A DAY NEEDED FOR ECZEMA, # 60 Gm, 1 Refills, Physician Stop 04/11/23 21:00:00 EST, 04/11/22 17:40:00 EST, [facility] # [facility], 15, APPLY TO HANDS 2 TIMES ADAY NEEDED FOR ECZEMA, 172, cm, 03/12/22 10:31:0... Start Date: 04/11/22 Stop Date: 04/11/23 Status: Ordered fluticasone 50 mcg/inh nasal spray See Instructions, INSTILL 1 SPRAY INTO EACH NOSTRIL TWICE A DAY, # 16 mL, 5 Refills, 04/15/22 16:31:00 EST, [facility] # [facility], 30, INSTILL 1 SPRAY [...] Team Personnel Name: Bailey Escobar NP Position: [facility] PCO Associate Professional Member Role: PCP Address: Address: [address] [place] [address]- [place] Name: Winnie Morgan RN Position: [facility] Onco RN Member Role: Primary Care Nurse Care Team Related Persons Name: ZAFAR BAI Address: home [address] [place] [address] Name: ALANNA HERRERA Address: home [address] [address]
--- OUTSIDE RECORDS SUMMARY | 2023-12-30 11:15 | XMS_ITS | Continuity of Care Document ---
Author Organization [facility] Adams Navarro Lux Address [address] [place] [address]- Care Team Providers Care Freezer Tunnel Operator Name Role Phone Bailey Escobar NP Primary Care Physician [phone] [place] [facility] [place]s): 07/11/23 - 08/10/23 [facility] Adams Navarro Adult [address] [place] [address]- Allergies, Adverse Reactions, Alerts Substance Reaction Severity [...] pneumococcal 23-valent vaccine 12/14/09 Given 1Result Comment: [id number] Medications Albuterol (Eqv-ProAir HFA) 90 mcg/inh inhalation aerosol 2 puffs, Inhalation, Every 6 hours, PRN NEEDED FOR WHEEEZING OR FOR SHORTNESS OF BREATH, # 8.5 Gm, 0 Refills, Maintenance, 06/07/23 10:19:00 EST, [facility] # [facility], 25, INHALE 2 PUFFS EVERY 6 HOURS NEEDED FOR WHEEEZING OR FOR SHORTNESS OF DESIREE... Start Date: 06/07/23 Status: Ordered Clobetasol (Eqv-Temovate) 0.05% topical cream See Instructions, APPLY TO HANDS 2 TIMES A DAY NEEDED FOR ECZEMA, # 60 Gm, 1 Refills, Maintenance, 05/27/23 10:45:00 EST, [facility] # [facility], APPLY TO HANDS 2 [...] 16 mL, 11 Refills, 10/07/22 11:03:00 EDT, [facility] # 50, 30, INSTILL 1 SPRAY [...] hours, # 60 tablet, 0 Refills, Maintenance, 05/28/23 15:37:00 EST, [facility] # [facility], Partial fill upon patient request if the prescription is for a schedule II opioid drug., 1 tablet By Mouth Every 12 hours, 172, cm, 12... Start Date: 05/28/23 Status: Ordered mometasone 110 mcg/inh inhalation aerosol powder 1, puffs, Inhalation, Daily in PM, # 0.24 Gm, Refills 0, Tot. Refills 0, Maintenance, 05/29/23 19:11:00 EST, Aerosol, Route to Pharmacy Electronically, [id number], [facility] # [facility], 172, cm, 04/22/23 19:18:00 EST, Height Start Date: 05/29/23 Status: Ordered Multivitamin Daily, 0 Refills, Maintenance, 01/09/23 10:48:00 EDT, Partial fill upon patient request if the prescription is for a schedule II opioid drug. Start Date: 01/09/23 Status: Ordered omeprazole 20 mg oral enteric coated capsule 1 capsule, By Mouth, Daily, # 30 capsule, 5 Refills, Maintenance, 07/07/23 9:22:00 EST, [facility] # 50, 172, cm, 06/02/23 8:13:00 EST, Height Start Date: 07/07/23 Status: Ordered pregabalin 50 mg oral capsule 1 capsule = 50 mg, By Mouth, 3 times a day, # 90 capsule, 2 Refills, Maintenance, 07/11/23 15:35:00EST, Capsule, [facility] # 50, Partial fill upon [...] Team Personnel Name: Bailey Escobar NP Position: [facility] PCO Associate Professional Member Role: PCP Address: Address: [address] [place] [address]- Name: Winnie Morgan RN Position: [facility] Onco RN Member Role: Primary Care Nurse Care Team Related Persons Name: ZAFAR BAI Address: home [address] [place] [address] Name: ALANNA HERRERA Address: home [address] [address]
--- OUTSIDE RECORDS SUMMARY | 2023-12-30 11:15 | XMS_ITS | Continuity of Care Document ---
Author Organization [facility] Ramon Lux lt Address [address] [place] [address]- Care Team Providers Care Auto Radiator Specialist Name Role Phone Shawn MURRAY, Bailey Sherman Primary Care Physician [phone] Encounter [facility] Date(s): 05/29/23 - 06/28/23 [facility] Adult [address] [place] [address]- Allergies, Adverse Reactions, Alerts Substance Reaction Severity [...] pneumococcal 23-valent vaccine 12/14/09 Given 1Result Comment: [id number] Medications Albuterol (Eqv-ProAir HFA) 90 mcg/inh inhalation [...] Gm, 1 Refills, Maintenance, 05/27/23 10:45:00 EST, [facility] # [facility], APPLY TO HANDS 2 [...] 16 mL, 11 Refills, 10/07/22 11:03:00 EDT, [facility] # [facility], 30, INSTILL 1 SPRAY [...] tablet, 0 Refills, Maintenance, 05/28/23 15:37:00 EST, [facility] # [facility], Partial fill [...] 19:11:00 EST, Aerosol, Route to Pharmacy Electronically, [id number], [facility] # [facility], 172, keyonna, 04/22/23 19:18:00 EST, Height Start Date: 05/29/23 Status: Ordered Multivitamin Daily, 0 Refills, Maintenance, 01/09/23 10:48:00 EDT, Partial fill upon patient request if the prescription is for a schedule II opioid drug. Start Date: 01/09/23 Status: Ordered omeprazole 20 mg oral enteric coated capsule 1 capsule = 20 mg, By Mouth, Daily, # 30 capsule, 0 Refills, Maintenance, 06/02/23 7:53:00 EST, [facility] # [facility], Partial fill upon patient request if the prescription is for a schedule II opioid drug., 172, cm, 06/02/23 7:37:00 EST, Height Start Date: 06/02/23 Status: Ordered pregabalin 50 mg oral capsule 1 capsule = 50 mg, By Mouth, 3 times a day, # 90 capsule, 2 Refills, Maintenance, 04/15/23 14:47:00EST, Capsule, [facility] # [facility], Partial fill upon [...] Shawn MURRAY, Bailey Sherman Position: [facility] PCO Associate Professional Member Role: PCP Address: Address: [address] [place] [address]- Name: Winnie Morgan RN Position: [facility] Onco RN Member Role: Primary Care Nurse Care Team Related Persons Name: ZAFAR BAI Address: home [address] [place] [address] Name: ALANNA HERRERA Address: home [address] [facility] [address] [place] [address]
--- OUTSIDE RECORDS SUMMARY | 2023-12-30 11:15 | XMS_ITS | Continuity of Care Document ---
Author Organization [facility] Neurosurger y Address [address] [place] [address] [address], [address] [place] [address]- Care Team Providers Care Plunger Shovel Operator Name Role Phone Shawn MURRAY, Bailey Sherman Primary Care Physician Encounter [facility] Date(s): 04/23/21 - 07/06/[address], [address] [place], [place] [address] Attending Physician: Renny Puga MD Referring Physician: Mark Conti MD Allergies, Adverse Reactions, Alerts Substance Reaction [...] pneumococcal 23-valent vaccine 12/14/09 Given 1Result Comment: [id number] Medications Clobetasol (Eqv-Temovate) 0.05% topical cream See Instructions, APPLY TO HANDS 2 TIMES A DAY NEEDED FOR ECZEMA, # 60 Gm, 5 Refills, [id number], 15, APPLY TO HANDS 2 TIMES A [...] A DAY, # 16 mL, 5 Refills, [facility], 30, INSTILL 1 SPRAY INTO EACH NOSTRIL [...]
--- OUTSIDE RECORDS SUMMARY | 2023-12-30 11:15 | XMS_ITS | Continuity of Care Document ---
Author Organization [facility] Ramon Lux lt Address [address] [place] [address]- Care Team Providers Care Wireless Sales Representative Name Role Phone Carole BUCKNER, Joey Evans Primary Care Physician [facility] Date(s): 12/11/20 - 01/10/21 [facility] Adult [address] [place] [address]- Allergies, Adverse Reactions, Alerts Substance Reaction Severity Status Latex Active Immunizations Given and Recorded Vaccine Date Status Refusal Reason tetanus/diphtheria/pertussis, acel(Tdap) 1 12/12/20 Given SARS-CoV-2 (COVID-19) mRNA BNT-162b2 vac 06/26/20 Recorded SARS-CoV-2 (COVID-19) mRNA BNT-162b2 vac 06/05/20 Recorded influenza virus vaccine, inactivated 01/12/20 Ozzy rded influenza virus vaccine, inactivated 02/02/19 Ozzy rded influenza virus vaccine, inactivated 01/20/18 Ozzy rded influenza virus vaccine, inactivated 02/07/17 Ozzy rded influenza virus vaccine, inactivated 03/24/16 Ozzy rded pneumococcal 23-valent vaccine 12/14/09 Given 1Result Comment: [id number] Medications Clobetasol (Eqv-Temovate) 0.05% topical cream See Instructions, APPLY TO HANDS 2 TIMES A DAY NEEDED FOR ECZEMA, # 60 Gm, 5 Refills, [facility] , 15, APPLY TO HANDS 2 TIMES A DAY NEEDED FOR ECZEMA, 172.72, cm, 12/14/20 10:46:00 EDT, Height Start Date: 12/22/20 Status: Ordered clonazepam 1 mg oral tablet 1 tablet, By Mouth, 3 times a day, 0 Refills, Maintenance, Tablet Start Date: 12/13/09 Status: Ordered QUEtiapine 100 mg oral tablet See Instructions, 1 TAB DAILY PRN, Refills 0, Maintenance, 08/16/19 10:59:00 EDT, Instructions Replace Required Details Start Date: 08/16/19 Status: Ordered Problem List Condition Effective Dates Status Health Status Inform ant Arthritis of right hip(Confirmed) Active Beta thalassemia, heterozygous(Confirmed) Active Trochanteric bursitis of rig ht hip(Confirmed) Active Irritable bowel syndrome wit h constipation(Confirmed) Active Social History Social History Type Response Tobacco Other: lifetime nons moker. Sex
--- OUTSIDE RECORDS SUMMARY | 2023-12-30 11:16 | XMS_ITS | Continuity of Care Document ---
Author Organization [facility] Ramon Lux Address [address] [place] [address]- Care Team Providers Care Wallpaperer Helper Name Role Phone Shwan MURRAY, Bailey Sherman Primary Care Physician Encounter [facility] Date(s): 07/01/22 - 07/08/22 [facility] Adult [address] [place] [address]- Encounter Diagnosis Bipolar disorder(Discharge Diagnosis) - 07/01/22 Arthritis of right hip(Discharge Diagnosis) - 07/01/22 Marital stress(Discharge Diagnosis) - 07/01/22 Attending Physician: Not on Staff, Attending MD Allergies, Adverse Reactions, Alerts Substance Reaction [...] pneumococcal 23-valent vaccine 12/14/09 Given 1Result Comment: [id number] Medications Clobetasol (Eqv-Temovate) 0.05% topical cream See Instructions, APPLY TO HANDS 2 TIMES A DAY NEEDED FOR ECZEMA, # 60 Gm, 1 Refills, Physician Stop 04/11/23 21:00:00 EST, 04/11/22 17:40:00 EST, [facility] # [facility], 15, APPLY TO HANDS 2 TIMES ADAY NEEDED FOR ECZEMA, 172, cm, 03/12/22 10:31:0... Start Date: 04/11/22 Stop Date: 04/11/23 Status: Ordered fluticasone 50 mcg/inh nasal spray See Instructions, INSTILL 1 SPRAY INTO EACH NOSTRIL TWICE A DAY, # 16 mL, 5 Refills, 04/15/22 16:31:00 EST, [facility] # [facility], 30, INSTILL 1 SPRAY [...] List Condition Confirmation Course Effective Dates Status [facility] Informant Arthritis of right hip Confirmed Active Arthritis of left hip Confirmed Active Pain of back and left lower extremity Confirmed Active Beta thalassemia, heterozygous Confirmed Active Bipolar disorder Confirmed Active Trochanteric bursitis of right hip Confirmed Active Left hip pain Confirmed Active Irritable bowel syndrome with constipation Confirmed Active Diagnosis Diagnosis Type Effective Dates [facility] Informant Bipolar disorder Discharge Diagnosis 07/01/22 Arthritis of right hip Discharge Diagnosis 07/01/22 Marital stress Discharge Diagnosis 07/01/22 Vital Signs Most recent to oldest [Reference Range]: 1 Height 172 cm (07/01/22 7:00 AM) Weight 80.0 kg (07/01/22 7:00 AM) Oxygen Saturation [94-100 %] 100 % (07/01/22 7:00 AM) Pulse Rate [55-90 bpm] 93 bpm *H* (07/01/22 7:00 AM) Body Mass Index [18.5-24.99 kg/m2] 27.04 kg/m2 *H* (07/01/22 7:00 AM) Blood Pressure [90-138/55-84 mm Hg] 119/ 64mm Hg (07/01/22 7:00 AM) Blood pressure sites Arm, left (07/01/22 7:00 AM) Weight Obtained Via Standing scale (07/01/22 7:00 AM) Social History Social History Type Response Tobacco Other: lifetime nons moker. Sex Note * Layla Azul: PERFORM, SIGN, VERIFY Event Display: Patient Education/Instruction Authored Date: [id number] [facility] *[facility] Nohelia Martinez Clinical Summary Name JES BAI Age 56 Years 1965 PCP Bailey Escobar NP PCP Visit Date 07/01/2022 06:55:00 Additional Instructions: Scheduled Appointments?? Future Appointments ?No Future Appointments Scheduled Follow-Up Instructions ?? With: Address: When: Bailey Escobar NP 07/01/2022 12:00 AM Comments: f/u 9 month CPE when due With: Address: When: Bailey Escobar NP Within 3 months Diagnosis Medications: Please continue your medications until treatment is completed or stopped by your provider. Discuss any questions related to medications with your provider. Medications to Continue with No Changes These medications were not printed or sent to your pharmacy Clobetasol Topical (Clobetasol (Eqv-Temovate) 0.05% topical cream) APPLY TO HANDS 2 TIMES A DAY NEEDED FOR ECZEMA. Refills: 1. Next Dose: Fluticasone Nasal (fluticasone 50 mcg/inh nasal spray) INSTILL 1 SPRAY INTO EACH NOSTRIL TWICE A DAY. Refills: 5. Next Dose: Glucosamine Oral. Next Dose: Quetiapine (QUEtiapine 100 mg oral tablet) 1 TAB DAILY PRN. Next Dose: Vitamin E Oral Daily. Next Dose: Allergy Info:?? Latex Medications Given This Visit Future Orders ?No future orders Vital Signs Height 172 cm Weight 80.0 kg BMI 27.04 kg/m2 Blood Pressure 119 mm Hg/64 mm Hg Temperature Pulse Rate 93 bpm Respiratory Rate 02 Sat Mode of Delivery 100 %/ You can now view a summary of your hospital visit from the comfort of your home through a free online portal called [employer]. [employer] is a website that allows you to securely view your medical information including discharge summary, medications and follow-up visits. ??You can alsosend a secure electronic message to your doctor???s office to request appointments, renew medications or just ask a question. You can enroll at [email or web address] or register during your next office visit. [...] primary care provider, you may find a [facility] provider by calling [facility] [facility] at [phone]. For information about the plan of care [...] Personnel Name: Shawn MURRAY, Bailey Sherman Position: [facility] PCO Associate Professional Member Role: PCP Address: Address: [address] [place] [address]- Name: Eddie RN, Winnie Escoto Position: [facility] Onco RN Member Role: Primary Care Nurse Care Team Related Persons Name: ZAFAR BAI Address: home [address] [place] [address] Name: ALANNA HERRERA Address: [address] [facility] [address] [place] [address]
--- OUTSIDE RECORDS SUMMARY | 2023-12-30 11:16 | XMS_ITS | Continuity of Care Document ---
Author Organization [facility] Ramon Lux Address [address] [place] [address]- Care Team Providers Care Digital Marketing Strategist Name Role Phone Joey Lam MD Primary Care Physician [place] [facility] Date(s): 08/16/19 - 08/23/19 [facility] Adult [address] [place] [address]- [facility] Encounter Diagnosis Bipolar disease, chronic(Discharge Diagnosis) - 08/16/19 Irritable bowel syndrome with constipation(Discharge Diagnosis) - 08/16/19 Beta thalassemia, heterozygous(Discharge Diagnosis) - 08/16/19 Attending Physician: Joey Lam MD Allergies, Adverse [...] Refills, Maintenance, 08/16/19 11:01:00 EDT, [facility]ository, [id number] Start Date: 08/16/19 Status: Ordered QUEtiapine 100 mg oral tablet Refills 0, Maintenance, 08/16/19 10:59:00 EDT Start Date: 08/16/19 Status: Ordered Problem List Condition Effective Dates Status Health Status Inform ant Beta thalassemia, heterozygous(Confirmed) Active Irritable bowel syndrome wit h constipation(Confirmed) Active Diagnosis Diagnosis Type Effective Dates Health Status Clinical Service Informant Bipolar disease, chronic Discharge Diagnosis 08/16/19 Irritable bowel syndrome with constipation Discharge Diagnosis 08/16/19 Beta thalassemia, heterozygous Discharge Diagnosis 08/16/19 Social History Social History Type Response Tobacco Other: lifetime nons moker. Sex
--- OUTSIDE RECORDS SUMMARY | 2023-12-30 11:16 | XMS_ITS | Continuity of Care Document ---
Author Organization [facility] Ramon Lux Address [address] [place] [address]- Care Team Providers Care Academic Advisement Director Name Role Phone Joey Lam MD Primary Care Physician [facility] Date(s): 01/10/21 - 02/09/21 [facility] Adult [address] [place] [address]- Allergies, Adverse Reactions, Alerts Substance Reaction Severity [...] pneumococcal 23-valent vaccine 12/14/09 Given 1Result Comment: [id number] Medications Clobetasol (Eqv-Temovate) 0.05% topical cream See Instructions, APPLY TO HANDS 2 TIMES A DAY NEEDED FOR ECZEMA, # 60 Gm, 5 Refills, [facility], 15, APPLY TO HANDS 2 TIMES A [...]
--- OUTSIDE RECORDS SUMMARY | 2023-12-30 11:16 | XMS_ITS | Continuity of Care Document ---
Author Organization [facility] Ramon Lux Address [address] [place] [address]- Care Team Providers Care Dehairing Machine Tender Name Role Phone Joey Lam MD Primary Care Physician [phone] Encounter [facility] Date(s): 12/22/20 - 01/21/21 [facility] Adult [address] [place] [address]- Allergies, Adverse Reactions, Alerts Substance Reaction Severity [...] pneumococcal 23-valent vaccine 12/14/09 Given 1Result Comment: [id number] Medications Clobetasol (Eqv-Temovate) 0.05% topical cream See Instructions, APPLY TO HANDS 2 TIMES A DAY NEEDED FOR ECZEMA, # 60 Gm, 5 Refills, [id number], 15, APPLY TO HANDS 2 TIMES A [...]
--- OUTSIDE RECORDS SUMMARY | 2023-12-30 11:16 | XMS_ITS | Continuity of Care Document ---
Author Organization [facility] Address [address] [place] [address]- Care Team Providers Care Electrical Maintenance Man Name Role Phone Bailey Escobar NP Primary Care Physician Encounter 07/04/22 - 07/17/22 [facility] [address] [place] [address]- Discharge Disposition: [facility] Allergies, Adverse Reactions, Alerts Substance Reaction Severity [...] pneumococcal 23-valent vaccine 12/14/09 Given 1Result Comment: [id number] Medications Clobetasol (Eqv-Temovate) 0.05% topical cream See Instructions, APPLY TO HANDS 2 TIMES A DAY NEEDED FOR ECZEMA, # 60 Gm, 1 Refills, Physician Stop 04/11/23 21:00:00 EST, 04/11/22 17:40:00 EST, [facility], 15, APPLY TO HANDS 2 TIMES ADAY NEEDED FOR ECZEMA, 172, cm, 11/08/22 10:31:0... Start Date: 04/11/22 Stop Date: 04/11/23 Status: Ordered fluticasone 50 mcg/inh nasal spray See Instructions, INSTILL 1 SPRAY INTO EACH NOSTRIL TWICE A DAY, # 16 mL, 5 Refills, 04/15/22 16:31:00 EST, [facility], 30, INSTILL [...] Team Personnel Name: Bailey Escobar NP Position: [facility] PCO Associate Professional Member Role: PCP Address: Address: [address] [place] [address]- Name: Winnie Morgan RN Position: [facility] Onco RN Member Role: Primary Care Nurse Care Team Related Persons Name: ZAFAR BAI Address: home [address] [place] [address] Name: ALANNA HERRERA Address: home [address] [facility] [place] [address]
--- OUTSIDE RECORDS SUMMARY | 2023-12-30 11:16 | XMS_ITS | Continuity of Care Document ---
Author Organization [facility] Adams Navarro Lux lt Address [address] [place] [address]- Care Team Providers Care Lock Master Name Role Phone Carole BUCKNER, Joey Evans Primary Care Physician Encounter [facility] Date(s): 09/25/20 - 10/25/20 [facility] Adult [address] [place] [address]- Allergies, Adverse Reactions, Alerts Substance Reaction Severity Status Latex Active Immunizations Given and Recorded Vaccine Date Status Refusal Reason pneumococcal 23-valent vaccine 12/14/09 Given Medications Clobetasol (Eqv-Temovate) 0.05% topical cream See Instructions, APPLY TO HANDS 2 TIMES A DAY NEEDED FOR ECZEMA, # 60 Gm, 1 Refills, Maintenance, 09/25/20 16:48:00 EDT, [id number], APPLY TO HANDS 2 TIMES A DAY NEEDED FOR ECZEMA Start Date: 09/25/20 Status: Ordered clonazepam 1 mg oral tablet [...]
--- OUTSIDE RECORDS SUMMARY | 2023-12-30 11:16 | XMS_ITS | Continuity of Care Document ---
Author Organization [facility] Adams Navarro Lux lt Address [address] [place] [address]- Care Team Providers Care Steersman Name Role Phone Bailey Escobar NP Primary Care Physician [phone] [facility]counter [facility] Date(s): 04/15/23 - 05/15/23 [facility] Adult [address] [place] [address]- Allergies, Adverse Reactions, Alerts Substance Reaction Severity [...] pneumococcal 23-valent vaccine 12/14/09 Given 1Result Comment: [id number] Medications Albuterol (Eqv-ProAir HFA) 90 mcg/inh inhalation aerosol 2 puffs, Inhalation, Every 6 hours, PRN NEEDED FOR WHEEEZING OR FOR SHORTNESS OF BREATH, # 8.5 Gm, 0 Refills, Maintenance, 05/13/23 15:38:00 EST, [facility], 25, INHALE 2 PUFFS EVERY 6 HOURS NEEDED FOR WHEEEZING OR FOR SHORTNESS OF DESIREE... Start Date: 05/13/23 Status: Ordered Clobetasol (Eqv-Temovate) 0.05% topical cream See Instructions, APPLY TO HANDS 2 TIMES A DAY NEEDED FOR ECZEMA, # 60 Gm, 1 Refills, Physician Stop 01/29/24 21:00:00 EDT, 01/28/23 14:39:00 EDT, [facility], 15, APPLY TO HANDS 2 TIMES ADAY NEEDED FOR ECZEMA, 172, cm, 01/09/23 10:42:0... Start Date: 01/28/23 Stop Date: 01/29/24 Status: Ordered Clobetasol (Eqv-Temovate) 0.05% topical cream See Instructions, APPLY TO HANDS 2 TIMES A DAY NEEDED FOR ECZEMA, # 60 Gm, 1 Refills, Maintenance, 04/03/23 8:16:00 EST, [facility], APPLY TO HANDS 2 [...] each, 0 Refills, Maintenance, 04/22/23 9:53:00 EST, [facility], Partial fill upon patient request if the prescription is for a schedule II opioid drug., 1 each Inhalation 2 times a day, 172, cm,... Start Date: 04/22/23 Status: Ordered fluticasone 50 mcg/inh nasal spray See Instructions, INSTILL 1 SPRAY INTO EACH NOSTRIL TWICE A DAY, # 16 mL, 11 Refills, 10/07/22 11:03:00 EDT, [facility], 30, INSTILL 1 SPRAY [...] capsule, 2 Refills, Maintenance, 04/15/23 14:47:00EST, Capsule, [facility], Partial fill upon [...] Professional Member Role: PCP Address: Address: [address] [place] [address] [place] [address]- [place] Name: Eddie RN, Winnie Escoto Position: [facility] Onco RN Member Role: Primary Care Nurse Care Team Related Persons Name: ZAFAR BAI Address: home [address] [place] [address] Name: ALANNA HERRERA Address: [address] [address]
--- OUTSIDE RECORDS SUMMARY | 2023-12-30 11:16 | XMS_ITS | Continuity of Care Document ---
Author Organization [facility] Adams Navarro Lux lt Address [address] [place] [address]- Care Team Providers Care Radiographer Angiogram Name Role Phone Joey Lam MD Primary Care Physician [phone] Encounter [facility] [place] Date(s): 01/21/20 - 02/20/20 [facility] Adult [address] [place] [address]- [facility] Allergies, Adverse Reactions, Alerts Substance Reaction Severity Status Latex Active Immunizations Given and Recorded Vaccine Date Status Refusal Reason pneumococcal 23-valent vaccine 12/14/09 Given Medications clobetasol 0.05% topical cream 1 application, Topically, 2 times a day, PRN Eczema, use on hands, # 60 Gm, 1 Refills, Maintenance,01/24/20 13:24:00 EDT, Cream, [id number], 1 application Topically 2 times a day,PRN:Eczema,Instr:use on hands Start Date: 01/24/20 Status: Ordered clonazepam 1 mg oral tablet [...]
--- OUTSIDE RECORDS SUMMARY | 2023-12-30 11:16 | XMS_ITS | Continuity of Care Document ---
Author Organization [facility] Ramon Lux Address [address] [place] [address]- Care Team Providers Care Casting Associate Name Role Phone Joey Lam MD Primary Care Physician [facility] Date(s): 01/01/21 - 01/31/21 [facility] Adult [address] [place] [address]- Allergies, Adverse Reactions, Alerts Substance Reaction Severity [...] pneumococcal 23-valent vaccine 12/14/09 Given 1Result Comment: [id number] Medications Clobetasol (Eqv-Temovate) 0.05% topical cream See Instructions, APPLY TO HANDS 2 TIMES A DAY NEEDED FOR ECZEMA, # 60 Gm, 5 Refills, [id number], 15, APPLY TO HANDS 2 TIMES A [...]
--- OUTSIDE RECORDS SUMMARY | 2023-12-30 11:16 | XMS_ITS | Continuity of Care Document ---
Author Organization [facility] Ramon Lux Address [address] [place] [address]- Care Team Providers Care Polishing Machine Tender Name Role Phone Joey Lam MD Primary Care Physician [phone] [facility]counter [facility] Date(s): 02/28/21 - 03/30/21 [facility] Adult [address] [place] [address]- Allergies, Adverse Reactions, Alerts Substance Reaction Severity [...] pneumococcal 23-valent vaccine 12/14/09 Given 1Result Comment: [id number] Medications Clobetasol (Eqv-Temovate) 0.05% topical cream See Instructions, APPLY TO HANDS 2 TIMES A DAY NEEDED FOR ECZEMA, # 60 Gm, 5 Refills, [facility], 15, APPLY TO HANDS 2 TIMES A DAY NEEDED FOR ECZEMA, 172.72, cm, 12/14/20 10:46:00 EDT, Height Start Date: 12/22/20 Status: Ordered clonazepam 1 mg oral tablet 1 tablet, By Mouth, 3 times a day, 0 Refills, Maintenance, Tablet Start Date: 12/13/09 Status: Ordered Glucosamine By Mouth, 0 Refills, [...] Inform ant Arthritis of right hip(Confirmed) Active Pain of back and left lower extremity(Confirmed) Active Beta thalassemia, heterozygous(Confirmed) Active Trochanteric bursitis of rig ht hip(Confirmed) Active Irritable bowel syndrome wit h constipation(Confirmed) Active Social History Social History Type Response Tobacco Other: lifetime nons moker. Sex
--- OUTSIDE RECORDS SUMMARY | 2023-12-30 11:16 | XMS_ITS | Continuity of Care Document ---
Author Organization [facility] Ramon Lux Address [address] [place] [address]- Care Team Providers Care Hand Welt Butter Name Role Phone Paulino Yusuf DO Primary Care Physician [facility]counter [facility] Date(s): 11/25/23 - 12/25/23 [facility] Adult [address] [place] [address]- Allergies, Adverse Reactions, Alerts Substance Reaction Severity [...] pneumococcal 23-valent vaccine 12/14/09 Given 1Result Comment: [id number] Medications Albuterol (Eqv-ProAir HFA) 90 mcg/inh inhalation [...] Gm, 1 Refills, Maintenance, 12/23/23 15:40:00 EDT, [facility], APPLY TO HANDS 2 [...] Gm, 2 Refills, Maintenance, 10/14/23 16:02:00 EDT, [facility] # [...] tablet, 1 Refills, Maintenance, 10/02/23 8:04:00 EDT, [facility], 30, TAKE ONE TABLET BY MOUTH EVERY 12 HOURS, 172, cm, 08/14/23 17:05:00 EDT, Height Start Date: 10/02/23 Status: Ordered mometasone 110 mcg/inh inhalation aerosol powder 1, puffs, Inhalation, Daily in PM, # 0.24 Gm, Refills 0, Tot. Refills 0, Maintenance, 05/29/23 19:11:00 EST, Aerosol, Route to Pharmacy Electronically, [id number], [facility], 172, [...] Team Personnel Name: Winnie Morgan RN Position: [facility] Onco RN Member Role: Primary Care Nurse Name: Paulino Yusuf DO Position: [facility] Physician - Primary Care Member Role: PCP Address: Address: [address] [place] [address] [place] [address]- Care Team Related Persons Name: ZAFAR BAI Address: home [address] [place] [address] Name: ALANNA HERRERA Address: [address] [facility] [address] [place] [address]
--- OUTSIDE RECORDS SUMMARY | 2023-12-30 11:16 | XMS_ITS | Continuity of Care Document ---
Author Organization [facility] Address [address] [place] [address]- Care Team Providers Care Workforce Management Coordinator Name Role Phone Carole BUCKNER, Joey Evans Primary Care Physician [phone] Encounter [facility] Date(s): 03/27/21 - 04/26/[address] [address] Attending Physician: AdmBetsey petty Admitting Physician: Admtr, Angel8 Referring Physician: Admtr, Ar8 Allergies, Adverse Reactions, [...] pneumococcal 23-valent vaccine 12/14/09 Given 1Result Comment: [id number] Medications Clobetasol (Eqv-Temovate) 0.05% topical cream See Instructions, APPLY TO HANDS 2 TIMES A DAY NEEDED FOR ECZEMA, # 60 Gm, 5 Refills, [facility] STORE [facility]23, 15, APPLY TO HANDS 2 TIMES A [...] # 16 mL, 5 Refills, [facility], 30, INSTILL 1 SPRAY INTO EACH NOSTRIL [...]
--- OUTSIDE RECORDS SUMMARY | 2023-12-30 11:16 | XMS_ITS | Continuity of Care Document ---
Author Organization [facility] Ramon Lux lt Address [address] [place] [address]- Care Team Providers Care Sausage Canner Name Role Phone Carole BUCKNER, Joey Evans Primary Care Physician [facility]counter [facility] Date(s): 03/12/21 - 04/11/21 [facility] Adult [address] [place] [address]- Attending Physician: Admtr, Ar8 Admitting Physician: Admtr, Ar8 Referring Physician: Admtr, [...] pneumococcal 23-valent vaccine 12/14/09 Given 1Result Comment: [id number] Medications Clobetasol (Eqv-Temovate) 0.05% topical cream See Instructions, APPLY TO HANDS 2 TIMES A DAY NEEDED FOR ECZEMA, # 60 Gm, 5 Refills, [facility] 27614, 15, APPLY TO HANDS 2 TIMES A [...] A DAY, # 16 mL, 5 Refills, [facility]ORE 80975, 30, INSTILL 1 SPRAY INTO EACH NOSTRIL [...]
--- OUTSIDE RECORDS SUMMARY | 2023-12-30 11:16 | XMS_ITS | Continuity of Care Document ---
Author Organization [facility] Address [address] [place] [address] [address], [address] [place] [address]- Care Team Providers Care Copier Repair Technician Name Role Phone Shawn MURRAY, Bailey Sherman Primary Care Physician [phone] Encounter [facility] Date(s): 05/25/21 - 07/22/[address], [address] [place], [place] [address] Attending Physician: Renny Puga MD Allergies, Adverse Reactions, Alerts Substance Reaction [...] pneumococcal 23-valent vaccine 12/14/09 Given 1Result Comment: [id number] Medications Clobetasol (Eqv-Temovate) 0.05% topical cream See Instructions, APPLY TO HANDS 2 TIMES A DAY NEEDED FOR ECZEMA, # 60 Gm, 5 Refills, [facility] STORE 58966, 15, APPLY TO HANDS 2 TIMES A [...] # 16 mL, 5 Refills, [facility], 30, INSTILL 1 SPRAY INTO EACH NOSTRIL [...]
--- OUTSIDE RECORDS SUMMARY | 2023-12-30 11:16 | XMS_ITS | Continuity of Care Document ---
Author Organization [facility] Adams Navarro Lux lt Address [address] [place] [address]- Care Team Providers Care Civil Engineering Design Draftsperson Name Role Phone Bailey Escobar NP Primary Care Physician [phone] Encounter [facility] Date(s): 04/04/23 - 04/11/23 [facility] Navarro Adult [address] [place] [address]- Encounter Diagnosis Viral illness(Discharge Diagnosis) - 04/04/23 Attending Physician: Keli Murray Allergies, Adverse Reactions, [...] pneumococcal 23-valent vaccine 12/14/09 Given 1Result Comment: [id number] Medications Augmentin 875 mg-125 mg oral tablet 1 tablet, By Mouth, Every 12 hours, for 7 days, # 14 tablet, 0 Refills, Acute 04/18/23 7:54:00 EST,04/11/23 7:54:00 EST, Tablet, [facility] # [facility], Partial fill upon patient request if the prescription is for a schedule II opioid drug., 172, cm, 11... Start Date: 04/11/23 Stop Date: 04/18/23 Status: Ordered cephalexin 125 mg/5 ml oral powder for reconstitution 20 mL = 500 mg, By Mouth, 2 times a day, for 7 days, # 280 mL, 0 Refills, Acute 04/18/23 9:29:00 EST, 04/11/23 9:29:00 EST, REC Powder, [facility] # [facility], Partial fill upon patient request if the prescription is for a schedule II opioid drug., 172,... Start Date: 04/11/23 Stop Date: 04/18/23 Status: Ordered Clobetasol (Eqv-Temovate) 0.05% topical cream See Instructions, APPLY TO HANDS 2 TIMES A DAY NEEDED FOR ECZEMA, # 60 Gm, 1 Refills, Physician Stop 01/29/24 21:00:00 EDT, 01/28/23 14:39:00 EDT, [facility], 15, APPLY TO HANDS 2 TIMES ADAY NEEDED FOR ECZEMA, 172, cm, 01/09/23 10:42:0... Start Date: 01/28/23 Stop Date: 01/29/24 Status: Ordered Clobetasol (Eqv-Temovate) 0.05% topical cream See Instructions, APPLY TO HANDS 2 TIMES A DAY NEEDED FOR ECZEMA, # 60 Gm, 1 Refills, Maintenance, 04/03/23 8:16:00 EST, [facility] # [facility], APPLY TO HANDS [...] 16 mL, 11 Refills, 10/07/22 11:03:00 EDT, [facility] # [facility], 30, INSTILL 1 SPRAY INTO EACH NOSTRIL TWICE A DAY, 172, keyonna, 10/07/22 10:45:00 EDT, Height, 78.7, kg, 04/30/21 [...] Acute 05/06/23 21:00:00 EST, 02/03/23 18:46:00 EDT, [facility] # [facility], Partial fill upon patient request if the prescription is for a schedule II opioid drug., 1 tablet By Mouth Every 12 ho... Start Date: 02/03/23 Stop Date: 05/06/23 Status: Ordered Multivitamin Daily, 0 Refills, Maintenance, 01/09/23 10:48:00 EDT, Partial fill upon patient request if the prescription is for a schedule II opioid drug. Start Date: 01/09/23 Status: Ordered predniSONE 20 mg oral tablet 1 tablet = 20 mg, By Mouth, 2 times a day, for 5 days, # 10 tablet, 0 Refills, Acute 04/16/23 7:54:00 EST, 04/11/23 7:54:00 EST, Tablet, [facility] # [facility], Partial fill upon patient request if the prescription is for a schedule II opioid drug., 172,... Start Date: 04/11/23 Stop Date: 04/16/23 Status: Ordered pregabalin 50 mg oral capsule 1 capsule = 50 mg, By Mouth, 3 times a day, # 90 capsule, 0 Refills, Maintenance, 02/27/23 12:14:00EDT, Capsule, [facility] # [facility], Partial fill upon patient request if the prescription is for a schedule II opioid drug., 172, cm, 01/09/23 10:42:00... Start Date: 02/27/23 Status: Ordered ProAir HFA 90 mcg/inh inhalation aerosol with adapter 2, puffs, Inhalation, Every 6 hours, PRN, # 8.5 Gm, Refills 0, Tot. Refills 0, Maintenance, 04/04/23 11:52:00 EST, Aerosol, Route to Pharmacy Electronically, [id number], [facility], 172, cm, 03/25/23 14:14:00 [...] Dates Health Status Cl inical Service Informant Viral illness Discharge Diagnosis 04/04/23 Social History Social History Type Response Tobacco Other: lifetime nons moker. Sex Patient Care team information Care Team Personnel Name: Bailey Escobar NP Position: [facility] PCO Associate Professional Member Role: PCP Address: Address: [address] [facility] [place] [address]- [place] Name: Winnie Morgan RN Position: [facility] Onco RN Member Role: Primary Care Nurse Care Team Related Persons Name: ZAFAR BAI Address: home [address] [place] [address] Name: ALANNA HERRERA Address: home [address] [facility] [address] [place] [address]
--- OUTSIDE RECORDS SUMMARY | 2023-12-30 11:16 | XMS_ITS | Continuity of Care Document ---
Author Organization [facility] Ramon Lux Address [address] [place] [address]- Care Team Providers Care Software Qa System Specialist Name Role Phone Shawn MURRAY, Bailey Sherman Primary Care Physician Encounter [facility] Date(s): 12/05/22 - 01/04/23 [facility] Adult [address] [place] [address]- Allergies, Adverse Reactions, Alerts Substance Reaction Severity [...] pneumococcal 23-valent vaccine 12/14/09 Given 1Result Comment: [id number] Medications Clobetasol (Eqv-Temovate) 0.05% topical cream See Instructions, APPLY TO HANDS 2 TIMES A DAY NEEDED FOR ECZEMA, # 60 Gm, 1 Refills, Physician Stop 04/06/23 21:00:00 EST, 12/05/22 16:31:00 EDT, [facility], 15, APPLY TO HANDS 2 TIMES ADAY NEEDED FOR ECZEMA, 172, cm, 10/07/22 10:45:0... Start Date: 12/05/22 Stop Date: 04/06/23 Status: Ordered fluticasone 50 mcg/inh nasal spray See Instructions, INSTILL 1 SPRAY INTO EACH NOSTRIL TWICE A DAY, # 16 mL, 11 Refills, 10/07/22 11:03:00 EDT, [facility] # [facility], 30, INSTILL 1 SPRAY [...] Acute 05/05/23 21:00:00 EST, 12/12/22 13:44:00 EDT, [facility] # [facility], Partial fill upon patient request if the prescription is for a schedule II opioid drug., 1 tablet By Mouth Every 12 ho... Start Date: 12/12/22 Stop Date: 05/05/23 Status: Ordered QUEtiapine 100 mg oral tablet [...] Team Personnel Name: Bailey Escobar NP Position: [facility] PCO Associate Professional Member Role: PCP Address: Address: [address] [place] [address]- Name: Winnie Morgan RN Position: [facility] Onco RN Member Role: Primary Care Nurse Care Team Related Persons Name: ZAFAR BAI Address: home [address] [place] [address] Name: ALANNA HERRERA Address: home [address] [facility] [place] [address]
--- OUTSIDE RECORDS SUMMARY | 2023-12-30 11:16 | XMS_ITS | Continuity of Care Document ---
Author Organization [facility] Adams Navarro Lux Address [address] [place] [address]- Care Team Providers Care Business Continuity Director Name Role Phone Joey Lam MD Primary Care Physician [facility] Date(s): 04/03/21 - 05/03/21 [facility] Adult [address] [place] [address]- Allergies, Adverse Reactions, Alerts Substance Reaction Severity [...] pneumococcal 23-valent vaccine 12/14/09 Given 1Result Comment: [id number] Medications Clobetasol (Eqv-Temovate) 0.05% topical cream See Instructions, APPLY TO HANDS 2 TIMES A DAY NEEDED FOR ECZEMA, # 60 Gm, 5 Refills, [facility] ST[facility] 95753, 15, APPLY TO HANDS 2 TIMES A [...] 16 mL, 5 Refills, [facility] STORE 32919, 30, INSTILL 1 SPRAY INTO EACH NOSTRIL TWICE A DAY, 172.72, cm, 03/12/21 12:06:00 EST, Height Start Date: 04/11/21 Status: Ordered Glucosamine By Mouth, 0 Refills, Maintenance, 03/12/21 12:08:00 EST, Partial fill upon patient request if the prescription is for a schedule II opioid drug. Start Date: 03/12/21 Status: Ordered oxyCODONE 5 mg oral tablet 10 mg, 2, tablet, By Mouth, Every 4 hours, PRN, # 30 tablet, Refills 0, Tot. Refills 0, Acute 05/07/21 9:36:00 EST, Pain , Moderate, 04/30/21 9:36:00 EST, Route to Pharmacy Electronically, [facility], Partial fill upon patient request if... Start Date: 04/30/21 Stop Date: 05/07/21 Status: Ordered QUEtiapine 100 mg oral tablet [...]
--- OUTSIDE RECORDS SUMMARY | 2023-12-30 11:16 | XMS_ITS | Continuity of Care Document ---
Author Organization [facility] Adams Navarro Lux lt Address [address] [place] [address]- Care Team Providers Care Pta Name Role Phone Shawn MURRAY, Bailey Sherman Primary Care Physician Encounter [facility] Date(s): 03/12/22 - 03/19/[address] [facility] Adult [address] [place] [address]- Encounter Diagnosis Annual physical exam(Discharge Diagnosis) - 03/12/22 Attending Physician: Bailey Escobar NP Referring Physician: [...] pneumococcal 23-valent vaccine 12/14/09 Given 1Result Comment: [id number] Medications Clobetasol (Eqv-Temovate) 0.05% topical cream See Instructions, APPLY TO HANDS 2 TIMES A DAY NEEDED FOR ECZEMA, # 60 Gm, 5 Refills, [facility] 74687, 15, APPLY TO HANDS 2 TIMES A DAY NEEDED FOR ECZEMA, 172.72, cm, 12/14/20 10:46:00 EDT, Height Start Date: 12/22/20 Status: Ordered fluticasone 50 mcg/inh nasal spray See Instructions, INSTILL 1 SPRAY INTO EACH NOSTRIL TWICE A DAY, # 16 mL, 5 Refills, [facility], 30, INSTILL 1 SPRAY INTO EACH NOSTRIL [...] List Condition Confirmation Course Effective Dates Status [facility] at Informant Arthritis of right hip Confirmed Active Arthritis of left hip Confirmed Active Pain of back and left lower extremity Confirmed Active Beta thalassemia, heterozygous Confirmed Active Bipolar disorder Confirmed Active Trochanteric bursitis of right hip Confirmed Active Left hip pain Confirmed Active Irritable bowel syndrome with constipation Confirmed Active Diagnosis Diagnosis Type Effective Dates Health Status inical Service Informant Annual physical exam Discharge Diagnosis 03/12/22 Vital Signs Most recent to oldest [Reference Range]: 1 Height 172 cm (03/12/22 10:31 AM) Weight 78.9 kg (03/12/22 10:31 AM) Oxygen Saturation [94-100 %] 100 % (03/12/22 10:31 AM) Pulse Rate [55-90 bpm] 65 bpm (03/12/22 10:31 AM) Body Mass Index [18.5-24.99 kg/m2] 26.67 kg/m2 *H* (03/12/22 10:31 AM) Blood Pressure [90-138/55-84 mm Hg] 108/ 69mm Hg (03/12/22 10:31 AM) Blood pressure sites Arm, left (03/12/22 10:31 AM) Weight Obtained Via Standing scale (03/12/22 10:31 AM) Social History Social History Type Response Tobacco Other: lifetime nons moker. Sex Note * Ayana Jones: PERFORM, SIGN, VERIFY Event Display: Patient Education/Instruction Authored Date: [facility] *[facility] So Ramon Martinez Clinical Summary Name JES BAI Age 56 Years 1965 PCP Bailey Escobar NP PCP Visit Date 03/12/2022 10:27:00 Additional Instructions: Scheduled Appointments?? Future Appointments ?No Future Appointments Scheduled Follow-Up Instructions ?? With: Address: When: Bailey Escobar NP Within 1 year Comments: CPE With: Address: When: Bailey Escobar NP Within 3 months Comments: long appt Diagnosis Encounter for general adult medical examination without abnormal findings Medications: Please continue your medications until treatment is completed or stopped by your provider. Discuss any questions related to medications with your provider. Medications to Continue with No Changes These medications were not printed or sent to your pharmacy Clobetasol Topical (Clobetasol (Eqv-Temovate) 0.05% topical cream) APPLY TO HANDS 2 TIMES A DAY NEEDED FOR ECZEMA. Refills: 5. Next Dose: Fluticasone Nasal (fluticasone 50 mcg/inh nasal spray) INSTILL 1 SPRAY INTO EACH NOSTRIL TWICE A DAY. Refills: 5. Next Dose: Glucosamine Oral. Next Dose: Quetiapine (QUEtiapine 100 mg oral tablet) 1 TAB DAILY PRN. Next Dose: Vitamin E Oral Daily. Next Dose: Allergy Info:?? Latex Medications Given This Visit Future Orders ?CBC w/ Differential? Order Date:03/12/22?- Complete on or after?03/12/22 Vital Signs Height 172 cm Weight 78.9 kg BMI 26.67 kg/m2 Blood Pressure 108 mm Hg/69 mm Hg Temperature Pulse Rate 65 bpm Respiratory Rate 02 Sat Mode of Delivery 100 %/ You can now view a summary of your hospital visit from the comfort of your home through a free online portal called [employer]. [employer] is a website that allows you to securely view your medical information including discharge summary, medications and follow-up visits. ??You can alsosend a secure electronic message to your doctor???s office to request appointments, renew medications or just ask a question. You can enroll at [email or web address] or register during your next office visit. [...] primary care provider, you may find a [facility] provider by calling [facility] Link at [phone]. For information about the plan of care [...] Personnel Name: Shawn MURRAY, Bailey Sherman Position: [facility] PCO Associate Professional Member Role: PCP Address: Address: [address] [place] [address]- Name: Winnie Morgan RN Position: [facility] Onco RN Member Role: Primary Care Nurse Care Team Related Persons Name: ZAFAR BAI Address: home [address] [place] [address] Name: ALANNA HERRERA Address: home [address] [address]
--- OUTSIDE RECORDS SUMMARY | 2023-12-30 11:16 | XMS_ITS | Continuity of Care Document ---
Author Organization [facility] Ramon Lux Address [address] [place] [address]- Care Team Providers Care Security Assistant Name Role Phone Bailey Escobar NP Primary Care Physician Encounter [facility] Date(s): 12/20/21 - 01/19/22 [facility] Adult [address] [place] [address]- Allergies, Adverse Reactions, Alerts Substance Reaction Severity [...] pneumococcal 23-valent vaccine 12/14/09 Given 1Result Comment: [id number] Medications Clobetasol (Eqv-Temovate) 0.05% topical cream See Instructions, APPLY TO HANDS 2 TIMES A DAY NEEDED FOR ECZEMA, # 60 Gm, 5 Refills, [facility] STORE 12153, 15, APPLY TO HANDS 2 TIMES A DAY NEEDED FOR ECZEMA, 172.72, cm, 12/14/20 10:46:00 EDT, Height Start Date: 12/22/20 Status: Ordered fluticasone 50 mcg/inh nasal spray See Instructions, INSTILL 1 SPRAY INTO EACH NOSTRIL TWICE A DAY, # 16 mL, 5 Refills, [facility] STORE 74524, 30, INSTILL 1 SPRAY INTO EACH NOSTRIL [...] lower extremity(Confirmed) Active Beta thalassemia, heterozygous(Confirmed) Active Bipolar disorder(Confirmed) Active Trochanteric bursitis of rig ht hip(Confirmed) Active Left hip pain(Confirmed) Active Irritable bowel syndrome wit h constipation(Confirmed) Active Social History Social History Type Response Tobacco Other: lifetime nons moker. Sex Care Team Personnel Name: Bailey Escobar NP Address: [address] [place] [address] Adult [place], [place] [address]
--- OUTSIDE RECORDS SUMMARY | 2023-12-30 11:16 | XMS_ITS | Continuity of Care Document ---
Author Organization [facility] ter Address [address] [place] [address]- Care Team Providers Care Court Interpreter Name Role Phone Joey Lam MD Primary Care Physician [phone] Encounter [facility] Date(s): 04/30/21 - 04/30/[address] [address]- Discharge Disposition: A-D/C Home Attending Physician: Paulino Rivas MD Admitting Physician: Paulino Rivas MD Referring Physician: Paulino Rivas MD Allergies, Adverse Reactions, Alerts Substance Reaction [...] pneumococcal 23-valent vaccine 12/14/09 Given 1Result Comment: [id number] Medications Acetaminophen Tablet 650 mg, Tablet, By Mouth, Every 6 hours, PRN for Temperature, greater than 101 F, Routine, 219:59:00 EST Start Date: 04/30/21 Stop Date: 05/30/21 Status: Ordered Clobetasol (Eqv-Temovate) 0.05% topical cream See Instructions, APPLY TO HANDS 2 TIMES A DAY NEEDED FOR ECZEMA, # 60 Gm, 5 Refills, [facility] 34369, 15, APPLY TO HANDS 2 TIMES A [...] A DAY, # 16 mL, 5 Refills, [facility] 57003, 30, INSTILL 1 SPRAY INTO EACH NOSTRIL TWICE A DAY, 172.72, cm, 03/12/21 12:06:00 EST, Height Start Date: 04/11/21 Status: Ordered Glucosamine By Mouth, 0 Refills, Maintenance, 03/12/21 12:08:00 EST, Partial fill upon patient request if the prescription is for a schedule II opioid drug. Start Date: 03/12/21 Status: Ordered oxyCODONE 5 mg oral tablet 10 mg, Tablet, By Mouth, Every 4 hours, PRN for Pain , Moderate, Routine, 04/30/21 10:05:00 EST Start Date: 04/30/21 Stop Date: 05/07/21 Status: Ordered oxyCODONE 5 mg oral tablet 10 mg, 2, tablet, By Mouth, Every 4 hours, PRN, # 30 tablet, Refills 0, Tot. Refills 0, Acute 05/07/21 9:36:00 EST, Pain , Moderate, 04/30/21 9:36:00 EST, Route to Pharmacy Electronically, [facility], Partial fill upon patient [...] Irritable bowel syndrome wit h constipation(Confirmed) Active Procedures Procedure Date Related Diagnosis Body Site Status Laminectomy, facetectomy and foraminotomy (unilateral or bilateral with decompression of spinal cord, cauda equina and/or nerve root[s], [eg, spinal or lateral recess stenosis]), single vertebral segment; lumbar Comple lily Results Radiology Reports * Exam Date Time Procedure Performing Provider Status 04/30/21 8:25 AM C-Arm < 1 Hour Carmen Morrissey; Aut h (Verified) Notes: (C-Arm < 1 Hour) Reason For Exam: lumbar stenosis, tt 10min, ft 1sec, 1 image saved RESULT: C-Arm < 1 Hour Spine Single View, C-Arm < 1 Hour INDICATION: Reason: lumbar stenosis, tt 10min, ft 1sec, 1 image saved COMPARISONS: MRI lumbosacral spine dated 04/17/2021. TECHNIQUE: Fluoroscopy support was provided. There was no radiologist in attendance. Fluoroscopy time: 1 second. Technologist time: 10 minutes. Exposure: 0.52 mGy FINDINGS: A single lateral view of the lower lumbosacral spine obtained by the portable image intensifier in the operating room is available for interpretation. There are multiple metallic instruments posteriorly pointing at the L4-L5 disc. There are moderate degenerative changes at the L5-S1 disc. Please refer to the operative report for further details. IMPRESSION: See above. WSN: [id number] Ordering Physician: Paulino Rivas Dictated By: Ran Interiano MD, V Dictated Date/Time: 04/30/21 11:20 a Reviewed By: Ran Interiano MD, V Signed By: Ran Interiano MD, V Signed Date/Time: 04/30/21 11:20 am Transcribed By: KARIME Transcribed Date/Time: 04/30/21 11:17 am * Exam Date Time Procedure Performing Provider Status 04/30/21 8:25 AM Spine Single View Carmen Morrissey; Audrey (Verified) Notes: (Spine Single View) Reason For Exam: lumbar stenosis, tt 10min, ft 1sec, 1 image saved RESULT: Spine Single View Spine Single View, C-Arm < 1 Hour INDICATION: Reason: lumbar stenosis, tt 10min, ft 1sec, 1 image saved COMPARISONS: MRI lumbosacral spine dated 04/17/2021. TECHNIQUE: Fluoroscopy support was provided. There was no radiologist in attendance. Fluoroscopy time: 1 second. Technologist time: 10 minutes. Exposure: 0.52 mGy FINDINGS: A single lateral view of the lower lumbosacral spine obtained by the portable image intensifier in the operating room is available for interpretation. There are multiple metallic instruments posteriorly pointing at the L4-L5 disc. There are moderate degenerative changes at the L5-S1 disc. Please refer to the operative report for further details. IMPRESSION: See above. WSN: [id number] Ordering Physician: Paulino Rivas Dictated By: Ran Interiano MD, V Dictated Date/Time: 04/30/21 11:20 a Reviewed By: Ran Interiano MD, V Signed By: Ran Interiano MD, V Signed Date/Time: 04/30/21 11:20 am Transcribed By: KARIME Transcribed Date/Time: 04/30/21 11:17 am Vital Signs Most recent to oldest [Reference Range]: 1 2 3 Height 172 cm (04/30/21 11:51 AM) Weight 78.7 kg (04/30/21 11:51 AM) Oxygen Saturation [94-100 %] 100 % (04/30/21 11:51 AM) 96 % (04/30/21 11:00 AM) 97 % (04/30/21 10:45 AM) Pulse Rate [55-90 bpm] 63 bpm (04/30/21 11:51 AM) 65 bpm (04/30/21 6:34 AM) Body Mass Index [18.5-24.99] 26.6 *H* (04/30/21 11:51 AM) Blood Pressure [90-138/55-84 mm Hg] 95/60mm Hg (04/30/21 11:51 AM) 101/70mm Hg (04/30/21 11:00 AM) 103/60mm Hg (04/30/21 10:45 AM) Respiratory Rate [16-30 br/min] 18 br/min (04/30/21 1:46 PM) 18 br/min (04/30/21 1:46 PM) 18 br/min (04/30/21 12:00 PM) Temperature [96.8-100.4 DegF] 97.9 DegF (04/30/21 11:51 AM) 97.5 DegF (04/30/21 10:30 AM) 97.9 DegF (04/30/21 9:45 AM) Mode of Delivery (Oxygen) Room air (04/30/21 11:51 AM) Room air (04/30/21 11:00 AM) Room air (04/30/21 10:45 AM) Blood pressure sites Arm, right (04/30/21 11:51 AM) Arm, right (04/30/21 10:45 AM) Arm, right (04/30/21 10:30 AM) Temperature Route Oral (04/30/21 11:51 AM) Temporal (04/30/21 10:30 AM) Temporal (04/30/21 9:45 AM) Dry Weight 78.7 kg (04/30/21 11:51 AM) 78.7 kg (04/30/21 6:34 AM) Dry Weight Obtained Via Standing scale (04/30/21 6:34 AM) Social History Social History Type Response Tobacco Other: lifetime nons moker. Sex
--- OUTSIDE RECORDS SUMMARY | 2023-12-30 11:16 | XMS_ITS | Continuity of Care Document ---
Author Organization [facility] Adams Navarro Lxu Address [address] [place] [address]- Care Team Providers Care Steam Shovel Oiler Name Role Phone Paulino Yusuf DO Primary Care Physician [facility]): [facility]23 - 12/28/23 [facility] Adult [address] [place] [address]- Allergies, Adverse Reactions, Alerts Substance Reaction Severity [...] pneumococcal 23-valent vaccine 12/14/09 Given 1Result Comment: [id number] Medications Albuterol (Eqv-ProAir HFA) 90 mcg/inh inhalation [...] Gm, 1 Refills, Maintenance, 12/23/23 15:40:00 EDT, [facility], APPLY TO HANDS [...] Gm, 2 Refills, Maintenance, 10/14/23 16:02:00 EDT, [facility], Partial fill upon patient [...] tablet, 1 Refills, Maintenance, 10/02/23 8:04:00 EDT, [facility] # [facility], 30, TAKE ONE TABLET BY MOUTH EVERY 12 HOURS, 172, cm, 08/14/23 17:05:00 EDT, Height Start Date: 10/02/23 Status: Ordered mometasone 110 mcg/inh inhalation aerosol powder 1, puffs, Inhalation, Daily in PM, # 0.24 Gm, Refills 0, Tot. Refills 0, Maintenance, 05/29/23 19:11:00 EST, Aerosol, Route to Pharmacy Electronically, [id number], [facility], 172, cm, 04/22/23 [...] Maintenance, 12/04/23 7:42:00 EDT, Capsule, [facility] # [...] Maintenance, 12/04/23 7:21:00 EDT, Tablet, [facility], [...] Team Personnel Name: Winnie Morgan RN Position: [facility] Onco RN Member Role: Primary Care Nurse Name: Paulino Yusuf DO Position: [facility] Physician - Primary Care Member Role: PCP Address: Address: [address] [place] [address] [place] [address]- Care Team Related Persons Name: ZAFAR BAI Address: home [address] [place] [address] Name: ALANNA HERRERA Address: home [address] [facility] [address] [place] [address]
--- OUTSIDE RECORDS SUMMARY | 2023-12-30 11:16 | XMS_ITS | Continuity of Care Document ---
Author Organization [facility] Ramon Lux Address [address] [place] [address]- Care Team Providers Care Print Producer Name Role Phone Bailey Escobar NP Primary Care Physician [phone] Encounter [facility] Date(s): 07/23/21 - 08/22/21 [facility] Adult [address] [place] [address]- Allergies, Adverse Reactions, Alerts Substance Reaction Severity [...] pneumococcal 23-valent vaccine 12/14/09 Given 1Result Comment: [id number] Medications Clobetasol (Eqv-Temovate) 0.05% topical cream See Instructions, APPLY TO HANDS 2 TIMES A DAY NEEDED FOR ECZEMA, # 60 Gm, 5 Refills, [id number], 15, APPLY TO HANDS 2 TIMES A [...] # 16 mL, 5 Refills, [id number], 30, INSTILL 1 SPRAY INTO EACH NOSTRIL [...]
--- OUTSIDE RECORDS SUMMARY | 2023-12-30 11:16 | XMS_ITS | Continuity of Care Document ---
Author Organization [facility] Adams Navarro Lux lt Address [address] [place] [address]- Care Team Providers Care Bellows Filler Name Role Phone Joey Lam MD Primary Care Physician [phone] [place] [facility] [place] 11/24/19 - 12/24/19 [facility] Adult [address] [place] [address]- [facility] Allergies, Adverse Reactions, Alerts Substance [...] Refills, Maintenance, 08/16/19 11:01:00 EDT, [facility], [id number] Start Date: 08/16/19 Status: Ordered QUEtiapine 100 mg oral tablet Refills 0, Maintenance, 08/16/19 10:59:00 EDT Start Date: 08/16/19 Status: Ordered Problem List Condition Effective Dates Status Health Status Inform ant Beta thalassemia, heterozygous(Confirmed) Active Irritable bowel syndrome wit h constipation(Confirmed) Active Social History Social History Type Response Tobacco Other: lifetime nons moker. Sex
--- OUTSIDE RECORDS SUMMARY | 2023-12-30 11:16 | XMS_ITS | Continuity of Care Document ---
Author Organization [facility] Adams Navarro Lux Address [address] [place] [address]- Care Team Providers Care Tax Staff Accountant Name Role Phone Bailey Escobar NP Primary Care Physician [facility]): 02/27/23 - 03/29/23 [facility] Adams Navarro Adult [address] [place] [address]- Allergies, Adverse Reactions, Alerts Substance Reaction Severity [...] pneumococcal 23-valent vaccine 12/14/09 Given 1Result Comment: [id number] Medications Clobetasol (Eqv-Temovate) 0.05% topical cream See Instructions, APPLY TO HANDS 2 TIMES A DAY NEEDED FOR ECZEMA, # 60 Gm, 1 Refills, Physician Stop 01/29/24 21:00:00 EDT, 01/28/23 14:39:00 EDT, [facility], 15, APPLY TO HANDS [...] 16 mL, 11 Refills, 10/07/22 11:03:00 EDT, [facility], 30, INSTILL 1 SPRAY [...] Acute 05/06/23 21:00:00 EST, 02/03/23 18:46:00 EDT, [facility] # [facility], Partial fill upon patient [...] capsule, 0 Refills, Maintenance, 02/27/23 12:14:00EDT, Capsule, [facility], Partial fill upon patient request if the prescription is for a schedule II opioid drug., 172, cm, 01/09/23 10:42:00... Start Date: 02/27/23 Status: Ordered QUEtiapine 100 mg oral tablet [...] Personnel Name: Shawn MURRAY, Bailey Sherman Position: [facility] Associate Professional Member Role: PCP Address: Address: [address] [place] [address]- Name: Winnie Morgan RN Position: [facility] Onco RN Member Role: Primary Care Nurse Care Team Related Persons Name: ZAFAR BAI Address: home [address] [place] [address] Name: ALANNA HERRERA Address: [address] [address]
--- OUTSIDE RECORDS SUMMARY | 2023-12-30 11:16 | XMS_ITS | Continuity of Care Document ---
Author Organization [facility] Adams Navarro Lux Address [address] [place] [address]- Care Team Providers Care Cane Cutter Name Role Phone Paulino Yusuf DO Primary Care Physician [phone] [facility] Date[facility]s): 12/04/23 - 12/11/23 [facility] Adult [address] [place] [address]- Attending Physician: Shawn MURRAY, Bailey Sherman Allergies, Adverse Reactions, Alerts Substance Reaction Severity [...] pneumococcal 23-valent vaccine 12/14/09 Given 1Result Comment: [id number] Medications Albuterol (Eqv-ProAir HFA) 90 mcg/inh inhalation aerosol 2 puffs, Inhalation, Every 6 hours, PRN NEEDED FOR WHEEEZING OR FOR SHORTNESS OF BREATH, # 8.5 Gm, 0 Refills, Maintenance, 06/07/23 10:19:00 EST, [facility], 25, INHALE 2 PUFFS EVERY 6 HOURS NEEDED FOR WHEEEZING OR FOR SHORTNESS OF DESIREE... Start Date: 06/07/23 Status: Ordered Clobetasol (Eqv-Temovate) 0.05% topical cream See Instructions, APPLY TO HANDS 2 TIMES A DAY NEEDED FOR ECZEMA, # 60 Gm, 1 Refills, Maintenance, 10/31/23 16:51:00 EDT, [facility], APPLY TO HANDS 2 TIMES A DAY NEEDED FOR ECZEMA, 172, cm, 10/09/23 9:59:00 EDT, Height Start Date: 10/31/23 Status: Ordered clonazePAM 1 mg oral tablet [...] Gm, 2 Refills, Maintenance, 10/14/23 16:02:00 EDT, [facility] # [facility], Partial fill upon patient [...] tablet, 1 Refills, Maintenance, 10/02/23 8:04:00 EDT, [facility], 30, TAKE ONE TABLET BY MOUTH EVERY 12 HOURS, 172, cm, 08/14/23 17:05:00 EDT, Height Start Date: 10/02/23 Status: Ordered mometasone 110 mcg/inh inhalation aerosol powder 1, puffs, Inhalation, Daily in PM, # 0.24 Gm, Refills 0, Tot. Refills 0, Maintenance, 05/29/23 19:11:00 EST, Aerosol, Route to Pharmacy Electronically, [id number], [facility], 172, cm, 04/22/23 [...] capsule, 5 Refills, Maintenance, 07/07/23 9:22:00 EST, [facility], 172, cm, 06/02/23 8:13:00 EST, Height Start Date: 07/07/23 Status: Ordered pregabalin 100 mg oral capsule 1 capsule = 100 mg, By Mouth, 2 times a day, # 180 capsule, 1 Refills, Maintenance, 12/04/23 7:42:00 EDT, Capsule, [facility], Partial fill upon [...] 5 Refills, Maintenance, 12/04/23 7:21:00 EDT, Tablet, [facility], Partial fill upon [...] Irritable bowel syndrome with constipation Confirmed Active Vital Signs Most recent to oldest [Reference Range]: 1 Height 172 cm (12/04/23 6:56 AM) Weight 86.3 kg (12/04/23 6:56 AM) Oxygen Saturation [94-100 %] 98 % (12/04/23 6:56 AM) Pulse Rate [55-90 bpm] 57 bpm (12/04/23 6:56 AM) Body Mass Index [18.5-24.99 kg/m2] 29.17 kg/m2 *H* (12/04/23 6:56 AM) Blood Pressure [90-138/55-84 mm Hg] 116/ 74mm Hg (12/04/23 6:56 AM) Mode of Delivery (Oxygen) Room air (12/04/23 6:56 AM) Blood pressure sites Arm, right (12/04/23 6:56 AM) Weight Obtained Via Standing scale (12/04/23 6:56 AM) Social History Social History Type Response Tobacco Other: lifetime nons moker. Sex Note * Ayana Jones: PERFORM Event Display: Patient Education/Instruction Authored Date: [id number] Ambulatory Adult Visit Summary [facility] [address] [address] Name: JES BAI : 1965?? Visit: 12/04/2023 06:51?? Ambulatory Visit Instructions ?? Your Care Team Primary Care Provider Paulino Yusuf DO? This Visit Provider Bailey Escobar NP Your Diagnosis Erectile dysfunction Vitals Signs Pulse Rate: 57 bpm Height: 172 cm Systolic Blood Pressure: 116 mm Hg Weight: 86.3 kg Diastolic Blood Pressure: 74 mm Hg Body Mass Index:??29.17 kg/m2??High Oxygen Saturation: 98 % Body surface area: 2.03 What to do next Follow-Up Appointments Follow Up with??Paulino Yusuf DO When:??Within 3 months Why: follow up chronic pain- sooner appt if available??please?? Where: [address] [place] [address], [place] [address]- Future Orders Comprehensive Metabolic Panel - Once, *Est. 04/24/23, Future Order?? Lipid Panel - Once, *Est. 04/24/23, Future Order?? PSA - Once, *Est. 04/24/23, Future Order?? CBC w/ Differential - Once, *Est. 04/24/23, Future Order?? Medications The list below reflects the information in our records and provided by you today along with any changes made during this visit. Please continue your medications until treatment is completed or stopped by your provider. If this is different from the information you have or there are other questions,please contact the prescribing provider. What How Much When Why Instructions New Sildenafil (sildenafil 50 mg oral tablet) 1 tab(s) Oral Daily Erectile dysfunction Refills: 5 1 hour before sexual activity ?? Pickup at [facility] Unchanged Albuterol (Albuterol (Eqv-ProAir HFA) 90 mcg/ inh inhalation aerosol) 2 puff(s) Inhalation Every 6 hours as needed for NEEDED FOR WHEEEZING OR FOR SHORTNESS OF BREATH Unchanged Clobetasol Topical (Clobetasol (Eqv-Temovate) 0.05% topical cream) See instructions Eczema APPLY TO HANDS 2 TIMES A DAY NEEDED FOR ECZEMA ?? Unchanged Clonazepam (clonazePAM 1 mg oral tablet) 1 tab(s) Oral Twice a day Unchanged Fluticasone Nasal (Flonase Allergy Relief 50 mcg/ inh nasal spray) See instructions Cough Allergies 1 sprays Daily in each nostril ?? Unchanged Glucosamine Oral Unchanged Loratadine-Pseudoephedrine (Loratadine-D 12 Hour oral tablet, extended release) 1 tab(s) Oral Every 12 hours Unchanged Mometasone (mometasone 110 mcg/ inh inhalation aerosol powder) 1 puff(s) Inhalation Daily in PM Cough Bronchitis Unchanged Multivitamin Daily Unchanged Omeprazole (omeprazole 20 mg oral enteric coated capsule) 1 capsule Oral Daily Unchanged Pregabalin (pregabalin 75 mg oral capsule) 1 capsule Oral 3 times a day Lumbar radiculopathy Unchanged Quetiapine (QUEtiapine 100 mg oral tablet) See instructions 1 TAB DAILY PRN ?? Unchanged Vitamin E Oral Daily Pharmacy Information [facility]: [address] [place] [id number] [phone] Medications and Immunizations Administered Medications Given During Visit No medications given during this visit.?? Allergies (NKA means No Known Allergies) Latex Common Emergency Awareness Tips IS IT A STROKE? Act FAST and Check for these signs: FACE Does the face look uneven? ARM Does one arm drift down? SPEECH Does their speech sound strange? TIME Call at any sign of stroke ?? Heart Attack Signs Chest discomfort: Most heart attacks involve discomfort in the center of the chest and lasts more than a few minutes, or goes away and comes back. It can feel like uncomfortable pressure, squeezing, fullness or pain. Discomfort in upper body: Symptoms can include pain or discomfort in one or both arms, back, neck, jaw or stomach. Shortness of breath: With or without discomfort. Other signs: Breaking out in a cold sweat, nausea, or lightheaded. Remember, MINUTES DO MATTER. If you experience any of these heart attack warning signs, call to get immediate medical attention! ?? Smoking can increase your chances of developing chronic health problems and can cause harmful effects to other family members in your house. If you smoke, you are strongly encouraged to quit. Please call [facility] Link at [phone] or [phone] ([phone]) or log in to [email or web address] for referrals to smoking cessation programs. ?? The National Suicide Prevention Hotline is available 25/11 if you or someone you know needs to find a reason to keep living. By calling 0-793-403-[employer] (2300) you'll be connected to a skilled, trained counselor at a crisis center in your area. [facility] Portal You can view and manage your care through the patient portal or by using a health care eddy of your choosing. [employer] is a website that allows you to securely view your medical information including your hospital discharge summary, office visit summaries, medications and follow-up visits. You can also request appointments, renew medications, and request access to your medical information using a health care eddy of your choosing, or just ask a question. You can enroll at [email or web address] or register during your next office visit. [facility], in keeping with [facility] guidance, no longer requires face masks for staff, patientsor visitors in most situations. Similiar to time spent indoors at other locations, there is the chance that you were exposed to repiratory viruses during your time with us (such as flu or COVID-19). If you develop symptoms concerning for a viral respiratory infection, please seek testing (and treatment if indicated) from your medical provider or home test kit. ?? Disclaimer: The information provided is of a general nature and is intended to be used in conjunction with the recommendations and advice of your health care practitioner. Every effort has been made to ensure that the information provided is accurate and complete at the time it is provided to you however, as your needs change, or, as new information becomes available, different or additional instructions may be required. ?? If you have questions, please consult with your primary care provider or pharmacist, as appropriate. This information is not intended to serve as substitution for assessment and evaluation by a qualified health care provider. If you do not have a primary care provider, you may find a [facility] provider by calling [facility] Link at [phone]. Patient Care team information Care Team Personnel Name: Winnie Morgan RN Position: [facility] Onco RN Member Role: Primary Care Nurse Name: Paulino Yusuf DO Position: [facility] Physician - Primary Care Member Role: PCP Address: Address: [address] [place] [address]- Care Team Related Persons Name: ZAFAR BAI Address: home [address] [place] [address] Name: ALANNA HERRERA Address: home [address] [address]
--- OUTSIDE RECORDS SUMMARY | 2023-12-30 11:16 | XMS_ITS | Continuity of Care Document ---
Author Organization [facility] Ramon Lux lt Address [address] [place] [address]- Care Team Providers Care Meter Readers Supervisor Name Role Phone Joey Lam MD Primary Care Physician [phone] [facility]): 09[facility]19 - 09/10/19 [facility] Adult [address] [place] [address]- [facility] Encounter Diagnosis Irritable bowel syndrome with constipation(Discharge Diagnosis) - 09/03/19 Attending Physician: Joey Lma MD Allergies, Adverse Reactions, Alerts Substance Reaction [...] Effective Dates Health Status Clinical Service Informant Irritable bowel syndrome with constipation Discharge Diagnosis 09/03/19 Social History Social History Type Response Tobacco Other: lifetime nons moker. Sex
--- OUTSIDE RECORDS SUMMARY | 2023-12-30 11:16 | XMS_ITS | Continuity of Care Document ---
Author Organization [facility] Ramon Lux lt Address [address] [place] [address]- Care Team Providers Care Stitching Machine Setter Name Role Phone Shawn MURRAY, Bailey Sherman Primary Care Physician [phone] Encounter [facility] Date(s): 02/28/22 - 03/30/22 [facility] Adult [address] [place] [address]- Allergies, Adverse Reactions, Alerts Substance Reaction Severity [...] pneumococcal 23-valent vaccine 12/14/09 Given 1Result Comment: [id number] Medications Clobetasol (Eqv-Temovate) 0.05% topical cream See Instructions, APPLY TO HANDS 2 TIMES A DAY NEEDED FOR ECZEMA, # 60 Gm, 5 Refills, [facility], 15, APPLY TO HANDS 2 TIMES A DAY NEEDED FOR ECZEMA, 172.72, cm, 12/14/20 10:46:00 EDT, Height Start Date: 12/22/20 Status: Ordered fluticasone 50 mcg/inh nasal spray See Instructions, INSTILL 1 SPRAY INTO EACH NOSTRIL TWICE A DAY, # 16 mL, 5 Refills, [facility], 30, INSTILL 1 SPRAY INTO EACH NOSTRIL [...] Associate Professional Member Role: PCP Address: Address: [address] [place] [address]- Name: Eddie RNWinnie Position: [facility] Onco RN Member Role: Primary Care Nurse Care Team Related Persons Name: ZAFAR BAI Address: home [address] [place] [address] Name: ALANNA HERRERA Address: home [address] [address]
--- OUTSIDE RECORDS SUMMARY | 2023-12-30 11:16 | XMS_ITS | Continuity of Care Document ---
Author Organization [facility] Adams Navarro Lux Address [address] [place] [address]- Care Team Providers Care Project Manager/Team Coach Name Role Phone Bailey Escobar NP Primary Care Physician [facility]s): 04/04/23 - 05/04/23 [facility] Adams Navarro Adult [address] [place] [address]- Allergies, Adverse Reactions, Alerts Substance Reaction Severity [...] pneumococcal 23-valent vaccine 12/14/09 Given 1Result Comment: [id number] Medications Albuterol (Eqv-ProAir HFA) 90 mcg/inh inhalation aerosol See Instructions, INHALE 2 PUFFS EVERY 6 HOURS NEEDED FOR WHEEEZING OR FOR SHORTNESS OF BREATH, # 8.5 Gm, 0 Refills, Maintenance, 04/22/23 18:35:00 EST, [facility], 25, INHALE 2 PUFFS EVERY 6 HOURS NEEDED FOR WHEEEZING OR FOR SHORTNESS... Start Date: 04/22/23 Status: Ordered Clobetasol (Eqv-Temovate) 0.05% topical cream See Instructions, APPLY TO HANDS 2 TIMES A DAY NEEDED FOR ECZEMA, # 60 Gm, 1 Refills, Physician Stop 01/29/24 21:00:00 EDT, 01/28/23 14:39:00 EDT, [facility], 15, APPLY TO HANDS 2 TIMES ADAY NEEDED FOR ECZEMA, 172, cm, 01/09/23 10:42:0... Start Date: 01/28/23 Stop Date: 01/29/24 Status: Ordered Clobetasol (Eqv-Temovate) 0.05% topical cream See Instructions, APPLY TO HANDS 2 TIMES A DAY NEEDED FOR ECZEMA, # 60 Gm, 1 Refills, Maintenance, 04/03/23 8:16:00 EST, [facility], APPLY TO HANDS 2 [...] each, 0 Refills, Maintenance, 04/22/23 9:53:00 EST, Powder,[facility], Partial fill upon patient request if the prescription is for a schedule II opioid drug., 1 each Inhalation 2 times a day, 172, cm,... Start Date: 04/22/23 Status: Ordered fluticasone 50 mcg/inh nasal spray See Instructions, INSTILL 1 SPRAY INTO EACH NOSTRIL TWICE A DAY, # 16 mL, 11 Refills, 10/07/22 11:03:00 EDT, [facility], 30, INSTILL 1 SPRAY [...] Team Personnel Name: Bailey Escobar NP Position: [facility] Associate Professional Member Role: PCP Address: Address: [address] [place] [address]- Name: Winnie Morgan RN Position: [facility] Onco RN Member Role: Primary Care Nurse Care Team Related Persons Name: ZAFAR BAI Address: home [address] [place] [address] Name: ALANNA HERRERA Address: home [address] [facility] [place] [address]
--- OUTSIDE RECORDS SUMMARY | 2023-12-30 11:16 | XMS_ITS | Continuity of Care Document ---
Author Organization [facility] Adams Navarro Lux lt Address [address] [place] [address]- Care Team Providers Care Warping Machine Operator Name Role Phone Bailey Escobar NP Primary Care Physician [phone] [facility] Date(s): 04/08/23 - 05/08/23 [facility] Adams Navarro Adult [address] [place] [address]- Allergies, Adverse Reactions, Alerts Substance Reaction Severity [...] pneumococcal 23-valent vaccine 12/14/09 Given 1Result Comment: [id number] Medications Albuterol (Eqv-ProAir HFA) 90 mcg/inh inhalation aerosol See Instructions, INHALE 2 PUFFS EVERY 6 HOURS NEEDED FOR WHEEEZING OR FOR SHORTNESS OF BREATH, # 8.5 Gm, 0 Refills, Maintenance, 04/22/23 18:35:00 EST, [facility], 25, INHALE 2 PUFFS EVERY 6 HOURS NEEDED FOR WHEEEZING OR FOR SHORTNESS... Start Date: 04/22/23 Status: Ordered Clobetasol (Eqv-Temovate) 0.05% topical cream See Instructions, APPLY TO HANDS 2 TIMES A DAY NEEDED FOR ECZEMA, # 60 Gm, 1 Refills, Physician Stop 01/29/24 21:00:00 EDT, 01/28/23 14:39:00 EDT, [facility], 15, APPLY TO HANDS 2 TIMES ADAY NEEDED FOR ECZEMA, 172, cm, 01/09/23 10:42:0... Start Date: 01/28/23 Stop Date: 01/29/24 Status: Ordered Clobetasol (Eqv-Temovate) 0.05% topical cream See Instructions, APPLY TO HANDS 2 TIMES A DAY NEEDED FOR ECZEMA, # 60 Gm, 1 Refills, Maintenance, 04/03/23 8:16:00 EST, [facility], APPLY TO HANDS 2 [...] each, 0 Refills, Maintenance, 04/22/23 9:53:00 EST, Powder,[facility] # [facility], Partial fill upon patient [...] Associate Professional Member Role: PCP Address: Address: [address] [place] [address]- Name: Eddie HONEYCUTT, Winnie Escoto Position: [facility] RN Member Role: Primary Care Nurse Care Team Related Persons Name: ZAFAR BAI Address: home [address] [place] [address] Name: ALANNA HERRERA Address: home [address] [address]
--- OUTSIDE RECORDS SUMMARY | 2023-12-30 11:16 | XMS_ITS | Continuity of Care Document ---
Author Organization [facility] Ramon Lux lt Address [address] [place] [address]- Care Team Providers Care Tmd Teacher Assistant Name Role Phone Joey Lam MD Primary Care Physician Encounter [facility] Date(s): 02/28/21 - 04/01/21 [facility] Adult [address] [place] [address]- Attending Physician: Joey Lam MD Allergies, Adverse [...] pneumococcal 23-valent vaccine 12/14/09 Given 1Result Comment: [id number] Medications Clobetasol (Eqv-Temovate) 0.05% topical cream See Instructions, APPLY TO HANDS 2 TIMES A DAY NEEDED FOR ECZEMA, # 60 Gm, 5 Refills, [facility] , 15, APPLY TO HANDS 2 [...]
--- OUTSIDE RECORDS SUMMARY | 2023-12-30 11:16 | XMS_ITS | Continuity of Care Document ---
Author Organization [facility] Ramon Lux lt Address [address] [place] [address]- Care Team Providers Care Materials Tech Name Role Phone Shawn MURRAY, Bailey Sherman Primary Care Physician [place] [facility] [place]11[place]22 - 01/10/23 [facility] Adult [address] [place] [address]- Allergies, Adverse Reactions, Alerts Substance Reaction Severity [...] pneumococcal 23-valent vaccine 12/14/09 Given 1Result Comment: [id number] Medications Clobetasol (Eqv-Temovate) 0.05% topical cream See [...] 16 mL, 11 Refills, 10/07/22 11:03:00 EDT, [facility], 30, INSTILL 1 SPRAY [...] Acute 05/05/23 21:00:00 EST, 12/12/22 13:44:00 EDT, [facility], Partial fill upon patient [...] capsule, 0 Refills, Maintenance, 01/09/23 11:04:00EDT, Capsule, [facility], Partial fill upon patient [...] Personnel Name: Shawn MURRAY, Bailey Sherman Position: [facility] PCO Associate Professional Member Role: PCP Address: Address: [address] [place] [address]- [place] Name: Winnie Morgan RN Position: [facility] Onco RN Member Role: Primary Care Nurse Care Team Related Persons Name: ZAFAR BAI Address: home [address] [place] [address] Name: ALANNA HERRERA Address: home [address] [address]
--- OUTSIDE RECORDS SUMMARY | 2023-12-30 11:16 | XMS_ITS | Continuity of Care Document ---
Author Organization [facility] Address [address] [place] [address] [address], [address] [place] [address]- Care Team Providers Care Cupola Charger Name Role Phone Carole BUCKNER, Joey Evans Primary Care Physician [phone] [facility]counter [facility] Date(s): 04/23/21 - 05/23/21 [facility] [address] [place] [address] Drive, [address] [place], [place] [address] Allergies, Adverse Reactions, Alerts Substance Reaction Severity [...] pneumococcal 23-valent vaccine 12/14/09 Given 1Result Comment: [id number] Medications Clobetasol (Eqv-Temovate) 0.05% topical cream See Instructions, APPLY TO HANDS 2 TIMES A DAY NEEDED FOR ECZEMA, # 60 Gm, 5 Refills, [facility], 15, APPLY TO HANDS 2 TIMES A [...] # 16 mL, 5 Refills, [facility], 30, INSTILL 1 SPRAY INTO EACH NOSTRIL [...]
--- OUTSIDE RECORDS SUMMARY | 2023-12-30 11:17 | XMS_ITS | Continuity of Care Document ---
Author Organization [facility] Ramon Lux lt Address [address] [place] [address]- Care Team Providers Care Civil Cad Designer Name Role Phone Carole BUCKNER, Joey Evans Primary Care Physician [phone] Encounter [facility] [place] Date(s): 09/03/19 - 10/03/19 [facility] Adult [address] [place] [address]- [facility] Attending Physician: Betsey Henderson Admitting Physician: Betsey Henderson Referring Physician: AdmtrBetsey Allergies, Adverse Reactions, Alerts Substance Reaction Severity [...]
--- OUTSIDE RECORDS SUMMARY | 2023-12-30 11:17 | XMS_ITS | Continuity of Care Document ---
Author Organization [facility] Ramon Lux lt Address [address] [place] [address]- Care Team Providers Care Oil Changer Name Role Phone Shawn MURRAY, Bailey Sherman Primary Care Physician En[place] [facility] [place] [facility] [id number] Date(s): 06/02/23 - 06/09/23 [facility] [address] [place] [address]- Encounter Diagnosis Viral URI(Discharge Diagnosis) - 06/02/23 Attending Physician: Not on Staff, Attending MD Referring Physician: Bailey Escobar NP Allergies, Adverse Reactions, [...] pneumococcal 23-valent vaccine 12/14/09 Given 1Result Comment: [id number] Medications Albuterol (Eqv-ProAir HFA) 90 mcg/inh inhalation aerosol 2 puffs, Inhalation, Every 6 hours, PRN NEEDED FOR WHEEEZING OR FOR SHORTNESS OF BREATH, # 8.5 Gm, 0 Refills, Maintenance, 06/07/23 10:19:00 EST, [facility] # [facility], 25, INHALE 2 PUFFS EVERY 6 HOURS NEEDED FOR WHEEEZING OR FOR SHORTNESS OF DESIREE... Start Date: 06/07/23 Status: Ordered Clobetasol (Eqv-Temovate) 0.05% topical cream See Instructions, APPLY TO HANDS 2 TIMES A DAY NEEDED FOR ECZEMA, # 60 Gm, 1 Refills, Maintenance, 05/27/23 10:45:00 EST, [facility] # [facility], APPLY TO HANDS 2 [...] 16 mL, 11 Refills, 10/07/22 11:03:00 EDT, [facility], 30, INSTILL 1 SPRAY [...] tablet, 0 Refills, Maintenance, 05/28/23 15:37:00 EST, [facility] # [facility], Partial fill [...] 19:11:00 EST, Aerosol, Route to Pharmacy Electronically, [id number], [facility], 172, cm, 04/22/23 [...] capsule, 0 Refills, Maintenance, 06/02/23 7:53:00 EST, [facility] # [facility], Partial fill upon patient request if the prescription is for a schedule II opioid drug., 172, cm, 06/02/23 7:37:00 EST, Height Start Date: 06/02/23 Status: Ordered pregabalin 50 mg oral capsule 1 capsule = 50 mg, By Mouth, 3 times a day, # 90 capsule, 2 Refills, Maintenance, 04/15/23 14:47:00EST, Capsule, [facility] # [facility], Partial fill upon [...] Diagnosis Diagnosis Type Effective Dates Health Status Clini erendira Service Informant Viral URI Discharge Diagnosis 06/02/23 Vital Signs Most recent to oldest [Reference Range]: 1 2 Height 172 cm (06/02/23 8:13 AM) 172 cm (06/02/23 7:37 AM) Weight 85.0 kg (06/02/23 7:37 AM) Oxygen Saturation [94-100 %] 98 % (06/02/23 7:37 AM) Pulse Rate [55-90 bpm] 98 bpm *H* (06/02/23 7:37 AM) Body Mass Index [18.5-24.99 kg/m2] 28.73 kg/m2 *H* (06/02/23 7:37 AM) Blood Pressure [90-138/55-84 mm Hg] 115/ 75mm Hg (06/02/23 7:37 AM) Temperature [96.8-100.4 DegF] 98.7 DegF (06/02/23 8:13 AM) Blood pressure sites Arm, right (06/02/23 7:37 AM) Temperature Route Oral (06/02/23 8:13 AM) Weight Obtained Via Standing scale (06/02/23 7:37 AM) Social History Social History Type Response Tobacco Other: lifetime nons moker. Sex Note * , Cathy: PERFORM, SIGN, VERIFY Event Display: Patient Education/Instruction Authored Date: [id number] [facility] *[facility] Nohelia Martinez Clinical Summary Name JES BAI Age 57 Years 1965 PCP Shawn MURRAY, Bailey Sherman PCP Visit Date 06/02/2023 07:34:00 Additional Instructions: Scheduled Appointments?? Future Appointments ?No Future Appointments Scheduled Follow-Up Instructions ?? Diagnosis Gastro-esophageal reflux disease without esophagitis Medications: Please continue your medications until treatment is completed or stopped by your provider. Discuss any questions related to medications with your provider. New Medications [facility], [address] [place], [place] [id number], [phone] Omeprazole (omeprazole 20 mg oral enteric coated capsule) 1 capsule Oral Daily. Refills: 0. Next Dose: Medications to Continue with No Changes These medications were not printed or sent to your pharmacy Albuterol (Albuterol (Eqv-ProAir HFA) 90 mcg/inh inhalation aerosol) 2 puff(s) Inhalation every 6 hours as needed NEEDED FOR WHEEEZING OR FOR SHORTNESS OF BREATH. Refills: 0. Next Dose: Clobetasol Topical (Clobetasol (Eqv-Temovate) 0.05% topical cream) [...] release) 1 tab(s) Oral every12 hours. Refills: 0. Next Dose: Mometasone (mometasone 110 mcg/inh inhalation aerosol powder) 1 puff(s) Inhalation Daily in PM. Refills: 0. Next Dose: Multivitamin Daily. Next Dose: Pregabalin (pregabalin 50 mg oral capsule) 1 capsule Oral 3 times a day. Refills: 2. Next Dose: Quetiapine (QUEtiapine 100 mg oral tablet) 1 TAB DAILY PRN. Next Dose: Vitamin E Oral Daily. Next Dose: Allergy Info:?? Latex Medications Given This Visit Future Orders ?No future orders Vital Signs Height 172 cm Weight 85.0 kg BMI 28.73 kg/m2 Blood Pressure 115 mm Hg/75 mm Hg Temperature Pulse Rate 98 bpm Respiratory Rate 02 Sat Mode of Delivery 98 %/ You can now view a summary of your hospital visit from the comfort of your home through a free online portal called [facility]. [employer] is a website that allows you to securely view your medical information including discharge summary, medications and follow-up visits. ??You can alsosend a secure electronic message to your doctor???s office to request appointments, renew medications or just ask a question. You can enroll at [email or web address] or register during your next office [...] care provider, you may find a [facility] provider by calling [facility] Link at [phone]. [facility], in keeping with [facility] guidance, no longer requires face masks [...] Team Personnel Name: Bailey Escobar NP Position: [facility] PCO Associate Professional Member Role: PCP Address: Address: [address] [place] [address]- Name: Winnie Morgan RN Position: [facility] Onco RN Member Role: Primary Care Nurse Care Team Related Persons Name: ZAFAR BAI Address: home [address] [place] [address] Name: ALANNA HERRERA Address: home [address] [address]
--- OUTSIDE RECORDS SUMMARY | 2023-12-30 11:17 | XMS_ITS | Continuity of Care Document ---
Author Organization [facility] Navarro Lux Address [address] [place] [address]- Care Team Providers Care Special Day Class Teacher Name Role Phone Bailey Escobar NP Primary Care Physician [phone] [facility]counter [facility] Date(s): 04/23/23 - 05/23/23 [facility] Adult [address] [place] [address]- Allergies, Adverse Reactions, Alerts Substance Reaction Severity [...] pneumococcal 23-valent vaccine 12/14/09 Given 1Result Comment: [id number] Medications Albuterol (Eqv-ProAir HFA) 90 mcg/inh inhalation aerosol 2 puffs, Inhalation, Every 6 hours, PRN NEEDED FOR WHEEEZING OR FOR SHORTNESS OF BREATH, # 8.5 Gm, 0 Refills, Maintenance, 05/13/23 15:38:00 EST, [facility] # [facility], 25, INHALE 2 PUFFS EVERY 6 HOURS NEEDED FOR WHEEEZING OR FOR SHORTNESS OF DESIREE... Start Date: 05/13/23 Status: Ordered Clobetasol (Eqv-Temovate) 0.05% topical cream See Instructions, APPLY TO HANDS 2 TIMES A DAY NEEDED FOR ECZEMA, # 60 Gm, 1 Refills, Physician Stop 01/29/24 21:00:00 EDT, 01/28/23 14:39:00 EDT, [facility] # [facility], 15, APPLY TO HANDS 2 TIMES ADAY NEEDED FOR ECZEMA, 172, cm, 01/09/23 10:42:0... Start Date: 01/28/23 Stop Date: 01/29/24 Status: Ordered Clobetasol (Eqv-Temovate) 0.05% topical cream See Instructions, APPLY TO HANDS 2 TIMES A DAY NEEDED FOR ECZEMA, # 60 Gm, 1 Refills, Maintenance, 04/03/23 8:16:00 EST, [facility] # [facility], APPLY TO HANDS 2 [...] each, 0 Refills, Maintenance, 04/22/23 9:53:00 EST, Pow[facility] # [facility], Partial fill upon patient [...] capsule, 2 Refills, Maintenance, 04/15/23 14:47:00EST, Capsule, [facility], Partial fill upon [...] Associate Professional Member Role: PCP Address: Address: [address] [place] [address]- Name: Eddie RN, Winnie Escoto Position: [facility] Onco RN Member Role: Primary Care Nurse Care Team Related Persons Name: ZAFAR BAI Address: home [address] [place] [address] Name: ALANNA HERRERA Address: home [address] [address]
--- OUTSIDE RECORDS SUMMARY | 2023-12-30 11:17 | XMS_ITS | Continuity of Care Document ---
Author Organization [facility] Ramon Lux Address [address] [place] [address]- Care Team Providers Care Subassembler Name Role Phone Joey Lam MD Primary Care Physician [phone] Encounter [facility] [place] Date(s): 12/14/20 - 01/13/21 [facility] Adult [address] [place] [address]- Attending Physician: Admtr, Ar8 Admitting Physician: Admtr, [...] pneumococcal 23-valent vaccine 12/14/09 Given 1Result Comment: [id number] Medications Clobetasol (Eqv-Temovate) 0.05% topical cream See Instructions, APPLY TO HANDS 2 TIMES A DAY NEEDED FOR ECZEMA, # 60 Gm, 5 Refills, [facility], 15, APPLY TO HANDS 2 TIMES A [...]
--- OUTSIDE RECORDS SUMMARY | 2023-12-30 11:17 | XMS_ITS | Continuity of Care Document ---
Author Organization [facility] Address [address] [place] [address], [address] [place] [address]- Care Team Providers Care Travel Sales Consultant Name Role Phone Shawn MURRAY, Bailey Sherman Primary Care Physician [facility] Date(s): 06/22/21 - 07/22/[address], [address] [place], [place] [address] Attending Physician: Admtr, Ar8 Admitting Physician: Admtr, [...] pneumococcal 23-valent vaccine 12/14/09 Given 1Result Comment: [id number] Medications Clobetasol (Eqv-Temovate) 0.05% topical cream See Instructions, APPLY TO HANDS 2 TIMES A DAY NEEDED FOR ECZEMA, # 60 Gm, 5 Refills, [facility] , 15, APPLY TO HANDS 2 [...] A DAY, # 16 mL, 5 Refills, [facility] 83336, 30, INSTILL 1 SPRAY INTO EACH NOSTRIL [...]
--- OUTSIDE RECORDS SUMMARY | 2023-12-30 11:17 | XMS_ITS | Continuity of Care Document ---
Author Organization [facility] Lux Address [address] [place] [address]- Care Team Providers Care Puffer Tender Name Role Phone Paulino Yusuf DO Primary Care Physician [phone] [facility]counter [facility] Date(s): 11/13/23 - 12/13/23 [facility] Adult [address] [place] [address]- Allergies, Adverse Reactions, Alerts Substance Reaction Severity [...] pneumococcal 23-valent vaccine 12/14/09 Given 1Result Comment: [id number] Medications Albuterol (Eqv-ProAir HFA) 90 mcg/inh inhalation [...] Gm, 1 Refills, Maintenance, 10/31/23 16:51:00 EDT, [facility], APPLY TO HANDS 2 [...] Gm, 2 Refills, Maintenance, 10/14/23 16:02:00 EDT, [facility] # [facility], Partial fill upon [...] tablet, 1 Refills, Maintenance, 10/02/23 8:04:00 EDT, [facility] # [facility], 30, TAKE ONE TABLET BY MOUTH EVERY 12 HOURS, 172, cm, 08/14/23 17:05:00 EDT, Height Start Date: 10/02/23 Status: Ordered mometasone 110 mcg/inh inhalation aerosol powder 1, puffs, Inhalation, Daily in PM, # 0.24 Gm, Refills 0, Tot. Refills 0, Maintenance, 05/29/23 19:11:00 EST, Aerosol, Route to Pharmacy Electronically, [id number], [facility], 172, cm, [...] 1 Refills, Maintenance, 12/04/23 7:42:00 EDT, Capsule, [facility] # [facility], Partial fill upon [...] 5 Refills, Maintenance, 12/04/23 7:21:00 EDT, Tablet, [facility] # [facility], Partial fill upon [...] Team Personnel Name: Winnie Morgan RN Position: [facility] Onco RN Member Role: Primary Care Nurse Name: Paulino Yusuf DO Position: [facility] Physician - Primary Care Member Role: PCP Address: Address: [address] [place] [address] [place] [address]- Care Team Related Persons Name: ZAFAR BAI Address: home [address] [place] [address] Name: ALANNA HERRERA Address: home [address] [facility] [place] [address]
--- OUTSIDE RECORDS SUMMARY | 2023-12-30 11:17 | XMS_ITS | Continuity of Care Document ---
Author Organization [facility] Lux lt Address [address] [place] [address]- Care Team Providers Care Intermediate Accountant Name Role Phone Joey Lam MD Primary Care Physician Encounter [facility] Date(s): 11/29/19 - 12/29/19 [facility] Adult [address] [place] [address]- [facility] Attending Physician: Admtr, Ar8 Admitting Physician: Admtr, [...]
--- OUTSIDE RECORDS SUMMARY | 2023-12-30 11:17 | XMS_ITS | Continuity of Care Document ---
Author Organization [facility] Ramon Lux lt Address [address] [place] [address]- Care Team Providers Care Monitoring And Evaluation Advisor Name Role Phone Shawn MURRAY, Bailey Sherman Primary Care Physician En[place] [facility] Date(s): 05/28/23 - 06/27/23 [facility] Adult [address] [place] [address]- Allergies, Adverse Reactions, Alerts Substance Reaction Severity Status Latex Active Immunizations Given and Recorded Vaccine Date Status Refusal Reason influenza virus vaccine, inactivated 02/10/23 Zozy rded influenza virus vaccine, inactivated 02/26/22 Ozzy [...] pneumococcal 23-valent vaccine 12/14/09 Given 1Result Comment: [id number] Medications Albuterol (Eqv-ProAir HFA) 90 mcg/inh inhalation [...] Gm, 1 Refills, Maintenance, 05/27/23 10:45:00 EST, [facility], APPLY TO HANDS 2 [...] 16 mL, 11 Refills, 10/07/22 11:03:00 EDT, [facility], 30, INSTILL 1 SPRAY [...] tablet, 0 Refills, Maintenance, 05/28/23 15:37:00 EST, [facility] # [facility], Partial fill [...] 19:11:00 EST, Aerosol, Route to Pharmacy Electronically, [id number], [facility], 172, keyonna, 04/22/23 19:18:00 [...] capsule, 0 Refills, Maintenance, 06/02/23 7:53:00 EST, [facility] # [facility], Partial fill upon patient request if the prescription is for a schedule II opioid drug., 172, cm, 06/02/23 7:37:00 EST, Height Start Date: 06/02/23 Status: Ordered pregabalin 50 mg oral capsule 1 capsule = 50 mg, By Mouth, 3 times a day, # 90 capsule, 2 Refills, Maintenance, 04/15/23 14:47:00EST, Capsule, [facility] # [facility], Partial fill [...] Personnel Name: Shawn MURRAY, Bailey Sherman Position: [facility] PCO Associate Professional Member Role: PCP Address: Address: [address] [place] [address]- Name: Winnie Morgan RN Position: [facility] Onco RN Member Role: Primary Care Nurse Care Team Related Persons Name: ZAFAR BAI Address: home [address] [place] [address] Name: ALANNA HERRERA Address: home [address] [facility] [place] [address]
--- OUTSIDE RECORDS SUMMARY | 2023-12-30 11:17 | XMS_ITS | Continuity of Care Document ---
Author Organization [facility] Lux lt Address [address] [place] [address]- Care Team Providers Care Division Merchandise Manager Name Role Phone Bailey Escobar NP Primary Care Physician [place] [facility] 09/03/21 - 09/10/21 [facility] Adult [address] [place] [address]- Encounter Diagnosis Encounter to establish care(Discharge Diagnosis) - 09/03/21 Bipolar disorder(Discharge Diagnosis) - 09/03/21 Attending Physician: Bailey Escobar NP Allergies, Adverse [...] pneumococcal 23-valent vaccine 12/14/09 Given 1Result Comment: [id number] Medications Clobetasol (Eqv-Temovate) 0.05% topical cream See Instructions, APPLY TO HANDS 2 TIMES A DAY NEEDED FOR ECZEMA, # 60 Gm, 5 Refills, [facility], 15, APPLY TO HANDS 2 TIMES A [...] # 16 mL, 5 Refills, [facility], 30, INSTILL 1 SPRAY INTO EACH NOSTRIL [...] Dates Health Status Cl inical Service Informant Encounter to establish care Discharge Diagnosis 09/03/21 Bipolar disorder Discharge Diagnosis 09/03/21 Vital Signs Most recent to oldest [Reference Range]: 1 Height 172 cm (09/03/21 9:53 AM) Weight 77.4 kg (09/03/21 9:53 AM) Oxygen Saturation [94-100 %] 100 % (09/03/21 9:53 AM) Pulse Rate [55-90 bpm] 79 bpm (09/03/21 9:53 AM) Body Mass Index [18.5-24.99] 26.16 *H* (09/03/21 9:53 AM) Weight Obtained Via Standing scale (09/03/21 9:53 AM) Social History Social History Type Response Tobacco Other: lifetime nons moker. Sex
--- OUTSIDE RECORDS SUMMARY | 2023-12-30 11:17 | XMS_ITS | Continuity of Care Document ---
Author Organization [facility] Ramon Lux lt Address [address] [place] [address]- Care Team Providers Care Content Manager Name Role Phone Carole BUCKNER, Joey Evans Primary Care Physician [facility] Date(s): 08/16/19 - 08/26/19 [facility] Adult [address] [place] [address]- [facility] Attending Physician: Betsey Henderson Admitting Physician: Betsey [...]
--- OUTSIDE RECORDS SUMMARY | 2023-12-30 11:17 | XMS_ITS | Continuity of Care Document ---
Author Organization [facility]on Lux lt Address [address] [place] [address]- Care Team Providers Care Particleboard Factory Worker Name Role Phone Paulino Yusuf DO Primary Care Physician [facility]counter [facility] Date(s): 10/31/23 - 11/30/23 [facility] Adult [address] [place] [address]- Allergies, Adverse Reactions, Alerts Substance Reaction Severity [...] pneumococcal 23-valent vaccine 12/14/09 Given 1Result Comment: [id number] Medications Albuterol (Eqv-ProAir HFA) 90 mcg/inh inhalation [...] Gm, 1 Refills, Maintenance, 10/31/23 16:51:00 EDT, [facility], APPLY TO HANDS 2 [...] 2 Refills, Maintenance, 10/14/23 16:02:00 EDT, [facility] # [facility], Partial [...] tablet, 1 Refills, Maintenance, 10/02/23 8:04:00 EDT, [facility] # [facility], 30, TAKE ONE TABLET BY MOUTH EVERY 12 HOURS, 172, cm, 08/14/23 17:05:00 EDT, Height Start Date: 10/02/23 Status: Ordered mometasone 110 mcg/inh inhalation aerosol powder 1, puffs, Inhalation, Daily in PM, # 0.24 Gm, Refills 0, Tot. Refills 0, Maintenance, 05/29/23 19:11:00 EST, Aerosol, Route to Pharmacy Electronically, [id number], [facility], 172, cm, [...] Height Start Date: 07/07/23 Status: Ordered pregabalin 75 mg oral capsule 1 capsule = 75 mg, By Mouth, 3 times a day, # 270 capsule, 1 Refills, Maintenance, 11/25/23 14:16:00 EDT, Capsule, [facility], Partial fill upon patient request if the prescription is for a schedule II opioid drug., 172, cm, 10/09/23 9:59:00... Start Date: 11/25/23 Status: Ordered QUEtiapine 100 mg oral tablet [...] Team Personnel Name: Winnie Morgan RN Position: [facility] Onco RN Member Role: Primary Care Nurse Name: Paulino Yusuf DO Position: [facility] Physician - Primary Care Member Role: PCP Address: Address: [address] [facility] [place] [address]- Care Team Related Persons Name: ZAFAR BAI Address: home [address] [place] [address] Name: ALANNA HERRERA Address: home [address] [facility] 2 [place] [address]
--- OUTSIDE RECORDS SUMMARY | 2023-12-30 11:17 | XMS_ITS | Continuity of Care Document ---
Author Organization [facility] Lux lt Address [address] [place] [address]- Care Team Providers Care Bull Riveter Name Role Phone Shawn MURRAY, Bailey Sherman Primary Care Physician [phone] [place] [facility] [place] 04/01/22 - 05/01/22 [facility] [place] Adult [address] [place] [address]- Allergies, Adverse Reactions, Alerts Substance Reaction Severity [...] pneumococcal 23-valent vaccine 12/14/09 Given 1Result Comment: [id number] Medications Clobetasol (Eqv-Temovate) 0.05% topical cream See [...] Team Personnel Name: Bailey Escobar NP Position: [facility] PCO Associate Professional Member Role: PCP Address: Address: [address] [place] [address]- Name: Winnie Morgan RN Position: [facility] Onco RN Member Role: Primary Care Nurse Care Team Related Persons Name: ZAFAR BAI Address: home [address] [place] [address] Name: ALANNA HERRERA Address: home [address] [facility] 2 [facility] [place] [address]
--- OUTSIDE RECORDS SUMMARY | 2023-12-30 11:17 | XMS_ITS | Continuity of Care Document ---
Author Organization [facility] Adams Navarro Lux lt Address [address] [place] [address]- Care Team Providers Care Application Counselor Name Role Phone Joey Lam MD Primary Care Physician [phone] [place] [facility] [place] 03/19/21 [facility] Adams Navarro Adult [address] [place] [address]- Encounter Diagnosis Pain of back and left lower extremity(Discharge Diagnosis) - 03/12/21 Attending Physician: Joey Lam MD Allergies, Adverse [...] pneumococcal 23-valent vaccine 12/14/09 Given 1Result Comment: [id number] Medications Clobetasol (Eqv-Temovate) 0.05% topical cream See Instructions, APPLY TO HANDS 2 TIMES A DAY NEEDED FOR ECZEMA, # 60 Gm, 5 Refills, [facility] , 15, APPLY TO HANDS 2 [...] Dates Health Status Cl inical Service Informant Pain of back and left lower extremity Discharge Diagnosis 03/12/21 Vital Signs Most recent to oldest [Reference Range]: 1 Height 172.72 cm (03/12/21 12:06 PM) Weight 70.9 kg (03/12/21 12:06 PM) Oxygen Saturation [94-100 %] 99 % (03/12/21 12:06 PM) Pulse Rate [55-90 bpm] 85 bpm (03/12/21 12:06 PM) Body Mass Index [18.5-24.99] 23.77 (03/12/21 12:06 PM) Blood Pressure [90-138/55-84 mm Hg] 121/ 72mm Hg (03/12/21 12:06 PM) Temperature [96.8-100.4 DegF] 98.4 DegF (03/12/21 12:06 PM) Mode of Delivery (Oxygen) Room air (03/12/21 12:06 PM) Blood pressure sites Arm, left (03/12/21 12:06 PM) Temperature Route Oral (03/12/21 12:06 PM) Weight Obtained Via Standing scale (03/12/21 12:06 PM) Social History Social History Type Response Tobacco Other: lifetime nons moker. Sex
--- OUTSIDE RECORDS SUMMARY | 2023-12-30 11:17 | XMS_ITS | Continuity of Care Document ---
Author Organization [facility] Adams Navarro Lux Address [address] [place] [address]- Care Team Providers Care Animal Impersonator Name Role Phone Joey Lam MD Primary Care Physician Encounter [facility] [place] Date(s): 02/28/21 - 03/07/21 [facility] Adams Navarro Adult [address] [place] [address]- Encounter Diagnosis Strain of left buttock(Discharge Diagnosis) - 02/28/21 Muscle strain of left upper back(Discharge Diagnosis) - 02/28/21 Attending Physician: Joey Lam MD Allergies, Adverse [...] pneumococcal 23-valent vaccine 12/14/09 Given 1Result Comment: [id number] Medications Clobetasol (Eqv-Temovate) 0.05% topical cream See Instructions, APPLY TO HANDS 2 TIMES A DAY NEEDED FOR ECZEMA, # 60 Gm, 5 Refills, [id number], 15, APPLY TO HANDS 2 TIMES A [...] Dates Health Status Cl inical Service Informant Strain of left buttock Discharge Diagnosis 02/28/21 Muscle strain of left upper back Discharge Diagnosis 02/28/21 Vital Signs Most recent to oldest [Reference Range]: 1 Height 172.72 cm (02/28/21 2:38 PM) Weight 72.9 kg (02/28/21 2:38 PM) Oxygen Saturation [94-100 %] 100 % (02/28/21 2:38 PM) Pulse Rate [55-90 bpm] 91 bpm *H* (02/28/21 2:38 PM) Body Mass Index [18.5-24.99] 24.44 (02/28/21 2:38 PM) Blood Pressure [90-138/55-84 mm Hg] 120/ 65mm Hg (02/28/21 2:38 PM) Respiratory Rate [16-30 br/min] 16 br/mi n (02/28/21 2:38 PM) Temperature [96.8-100.4 DegF] 98.3 DegF (02/28/21 2:38 PM) Mode of Delivery (Oxygen) Room air (02/28/21 2:38 PM) Blood pressure sites Arm, left (02/28/21 2:38 PM) Temperature Route Oral (02/28/21 2:38 PM) Weight Obtained Via Standing scale (02/28/21 2:38 PM) Social History Social History Type Response Tobacco Other: lifetime nons moker. Sex
--- OUTSIDE RECORDS SUMMARY | 2023-12-30 11:17 | XMS_ITS | Continuity of Care Document ---
Author Organization [facility] Adams Navarro Lux lt Address [address] [place] [address]- Care Team Providers Care Plumbing Technician Name Role Phone Shawn MURRAY, Bailey Sherman Primary Care Physician [place] [facility] [place] 04/22/23 - 04/29/23 [facility] Adams Navarro Adult [address] [place] [address]- Encounter Diagnosis Cough(Discharge Diagnosis) - 04/22/23 Attending Physician: Keli Murray Referring Physician: Bailey Escobar NP Allergies, Adverse [...] pneumococcal 23-valent vaccine 12/14/09 Given 1Result Comment: [id number] Medications Albuterol (Eqv-ProAir HFA) 90 mcg/inh inhalation aerosol See Instructions, INHALE 2 PUFFS EVERY 6 HOURS NEEDED FOR WHEEEZING OR FOR SHORTNESS OF BREATH, # 8.5 Gm, 0 Refills, Maintenance, 04/22/23 18:35:00 EST, [facility], 25, INHALE 2 PUFFS EVERY 6 HOURS NEEDED FOR WHEEEZING OR FOR SHORTNESS... Start Date: 04/22/23 Status: Ordered Clobetasol (Eqv-Temovate) 0.05% topical cream See Instructions, APPLY TO HANDS 2 TIMES A DAY NEEDED FOR ECZEMA, # 60 Gm, 1 Refills, Physician Stop 01/29/24 21:00:00 EDT, 01/28/23 14:39:00 EDT, [facility] # [facility], 15, APPLY TO HANDS 2 TIMES ADAY NEEDED FOR ECZEMA, 172, cm, 01/09/23 10:42:0... Start Date: 01/28/23 Stop Date: 01/29/24 Status: Ordered Clobetasol (Eqv-Temovate) 0.05% topical cream See Instructions, APPLY TO HANDS 2 TIMES A DAY NEEDED FOR ECZEMA, # 60 Gm, 1 Refills, Maintenance, 04/03/23 8:16:00 EST, [facility] # [facility], APPLY TO HANDS 2 [...] each, 0 Refills, Maintenance, 04/22/23 9:53:00 EST, Powder,[facility] # [facility], Partial fill upon patient request if the prescription is for a schedule II opioid drug., 1 each Inhalation 2 times a day, 172, cm,... Start Date: 04/22/23 Status: Ordered fluticasone 50 mcg/inh nasal spray See Instructions, INSTILL 1 SPRAY INTO EACH NOSTRIL TWICE A DAY, # 16 mL, 11 Refills, 10/07/22 11:03:00 EDT, [facility], 30, INSTILL 1 [...] Acute 05/06/23 21:00:00 EST, 02/03/23 18:46:00 EDT, [facility], Partial fill upon [...] capsule, 2 Refills, Maintenance, 04/15/23 14:47:00EST, Capsule, [facility] # [facility], Partial fill upon patient [...] Dates Health Status Clini erendira Service Informant Cough Discharge Diagnosis 04/22/23 Vital Signs Most recent to oldest [Reference Range]: 1 Height 172 cm (04/22/23 9:18 AM) Social History Social History Type Response Tobacco Other: lifetime nons moker. Sex Patient Care team information Care Team Personnel Name: Bailey Escobar NP Position: [facility] PCO Associate Professional Member Role: PCP Address: Address: [address] [place] [address]- Name: Winnie Morgan RN Position: [facility] Onco RN Member Role: Primary Care Nurse Care Team Related Persons Name: ZAFAR BAI Address: home [address] [place] [address] Name: AALNNA HERRERA Address: home [address] [facility] [address] [place] [address]
--- OUTSIDE RECORDS SUMMARY | 2023-12-30 11:17 | XMS_ITS | Continuity of Care Document ---
Author Organization [facility] Ramon Lux lt Address [address] [place] [address]- Care Team Providers Care Flooring Sales Manager Name Role Phone Shawn MURRAY, Bailey Sherman Primary Care Physician [place] [facility] [id number] Date(s): 04/24/23 - 06/05/23 [facility] Adult [address] [place] [address]- Attending Physician: Carly BUCKNER, Mark Galeas Allergies, Adverse [...] pneumococcal 23-valent vaccine 12/14/09 Given 1Result Comment: [id number] Medications Albuterol (Eqv-ProAir HFA) 90 mcg/inh inhalation aerosol 2 puffs, Inhalation, Every 6 hours, PRN NEEDED FOR WHEEEZING OR FOR SHORTNESS OF BREATH, # 8.5 Gm, 0 Refills, Maintenance, 05/13/23 15:38:00 EST, [facility], 25, INHALE 2 PUFFS EVERY 6 HOURS NEEDED FOR WHEEEZING OR FOR SHORTNESS OF DESIREE... Start Date: 05/13/23 Status: Ordered Clobetasol (Eqv-Temovate) 0.05% topical cream See Instructions, APPLY TO HANDS 2 TIMES A DAY NEEDED FOR ECZEMA, # 60 Gm, 1 Refills, Maintenance, 05/27/23 10:45:00 EST, [facility], APPLY TO HANDS 2 [...] 16 mL, 11 Refills, 10/07/22 11:03:00 EDT, [facility], 30, INSTILL 1 SPRAY [...] tablet, 0 Refills, Maintenance, 05/28/23 15:37:00 EST, [facility] # [facility], Partial fill upon patient request if the prescription is for a schedule II opioid drug., 1 tablet By Mouth Every 12 hours, 172, cm, 12... Start Date: 05/28/23 Status: Ordered mometasone 110 mcg/inh inhalation aerosol powder 1, puffs, Inhalation, Daily in PM, # 0.24 Gm, Refills 0, Tot. Refills 0, Maintenance, 05/29/23 19:11:00 EST, Aerosol, Route to Pharmacy Electronically, [id number], [facility], 172, cm, 04/22/23 [...] capsule, 0 Refills, Maintenance, 06/02/23 7:53:00 EST, [facility], Partial fill upon patient request if the prescription is for a schedule II opioid drug., 172, cm, 06/02/23 7:37:00 EST, Height Start Date: 06/02/23 Status: Ordered pregabalin 50 mg oral capsule 1 capsule = 50 mg, By Mouth, 3 times a day, # 90 capsule, 2 Refills, Maintenance, 04/15/23 14:47:00EST, Capsule, [facility], Partial fill upon [...] List Condition Confirmation Course Effective Dates Status [facility] Informant Arthritis of right hip Confirmed [...] Team Personnel Name: Bailey Escobar NP Position: [facility] Associate Professional Member Role: PCP Address: Address: [address] [place] [address]- Name: Winnie Morgan RN Position: [facility] Onco RN Member Role: Primary Care Nurse Care Team Related Persons Name: ZAFAR BAI Address: home [address] [place] [address] Name: ALANNA HERRERA Address: home [address] [facility] [address] [place] [address]
--- OUTSIDE RECORDS SUMMARY | 2023-12-30 11:17 | XMS_ITS | Continuity of Care Document ---
Author Organization [facility] Ramon Lux lt Address [address] [place] [address]- Care Team Providers Care Hand Edge Bander Name Role Phone Joey Lam MD Primary Care Physician En[place] [facility] [place] Date(s): 12/12/20 - 12/19/20 [facility] [place] Adult [address] [place] [address]- Encounter Diagnosis Injury of adductor muscle and tendon of right thigh(Discharge Diagnosis) - 12/12/20 Attending Physician: Joey Lam MD Allergies, Adverse [...] pneumococcal 23-valent vaccine 12/14/09 Given 1Result Comment: [id number] Medications Clobetasol (Eqv-Temovate) 0.05% topical cream See Instructions, APPLY TO HANDS 2 TIMES A DAY NEEDED FOR ECZEMA, # 60 Gm, 1 Refills, Maintenance, 09/25/20 16:48:00 EDT, [id number], APPLY TO HANDS 2 TIMES A DAY [...] Dates Health Status Cl inical Service Informant Injury of adductor muscle and tendon of right thigh Discharge Diagnosis 12/12/20 Vital Signs Most recent to oldest [Reference Range]: 1 Height 172.72 cm (12/12/20 10:44 AM) Weight 74.9 kg (12/12/20 10:44 AM) Oxygen Saturation [94-100 %] 98 % (12/12/20 10:44 AM) Pulse Rate [55-90 bpm] 78 bpm (12/12/20 10:44 AM) Body Mass Index [18.5-24.99] 25.11 *H* (12/12/20 10:44 AM) Blood Pressure [90-138/55-84 mm Hg] 104/ 58mm Hg (12/12/20 10:44 AM) Temperature [96.8-100.4 DegF] 98.2 DegF (12/12/20 10:44 AM) Mode of Delivery (Oxygen) Room air (12/12/20 10:44 AM) Blood pressure sites Arm, left (12/12/20 10:44 AM) Temperature Route Oral (12/12/20 10:44 AM) Weight Obtained Via Standing scale (12/12/20 10:44 AM) Social History Social History Type Response Tobacco Other: lifetime nons moker. Sex
--- OUTSIDE RECORDS SUMMARY | 2023-12-30 11:18 | XMS_ITS | Continuity of Care Document ---
Author Organization [facility] ter Address [address] [place] [address]- Care Team Providers Care Licensed Practical Nurse Clinic Nurse Name Role Phone Shawn MURRAY, Bailey Sherman Primary Care Physician Encounter [facility] Date(s): 06/12/21 - 07/12/[address] [address] Attending Physician: Paulino Rivas MD Admitting Physician: [...] pneumococcal 23-valent vaccine 12/14/09 Given 1Result Comment: [id number] Medications Clobetasol (Eqv-Temovate) 0.05% topical cream See Instructions, APPLY TO HANDS 2 TIMES A DAY NEEDED FOR ECZEMA, # 60 Gm, 5 Refills, [facility], 15, APPLY TO HANDS 2 TIMES A DAY NEEDED FOR ECZEMA, 172.72, cm, 08/12/21 10:46:00 EDT, Height Start Date: 12/22/20 Status: Ordered clonazepam 1 mg oral tablet 1 tablet, By Mouth, 3 times a day, 0 Refills, Maintenance, Tablet Start Date: 12/13/09 Status: Ordered fluticasone 50 mcg/inh nasal spray See Instructions, INSTILL 1 SPRAY INTO EACH NOSTRIL TWICE A DAY, # 16 mL, 5 Refills, [facility], 30, INSTILL 1 SPRAY INTO EACH NOSTRIL [...]
--- OUTSIDE RECORDS SUMMARY | 2023-12-30 11:18 | XMS_ITS | Continuity of Care Document ---
Author Organization [facility] Ramon Lux lt Address [address] [place] [address]- Care Team Providers Care Restaurant Hospitality Manager Name Role Phone Joey Lam MD Primary Care Physician [phone] Encounter [facility] Date(s): 07/29/19 - 11/18/19 [facility] [place] Adult [address] [place] [address]- [facility] Attending Physician: Joey Lam MD Allergies, Adverse [...] Refills, Maintenance, 08/16/19 11:01:00 EDT, Suppository, [id number] Start Date: 08/16/19 Status: Ordered QUEtiapine 100 mg oral tablet Refills 0, Maintenance, 08/16/19 10:59:00 EDT Start Date: 08/16/19 Status: Ordered Problem List Condition Effective Dates Status Health Status Inform ant Beta thalassemia, heterozygous(Confirmed) Active Irritable bowel syndrome wit h constipation(Confirmed) Active Social History Social History Type Response Tobacco Other: lifetime nons moker. Sex
--- OUTSIDE RECORDS SUMMARY | 2023-12-30 11:18 | XMS_ITS | Continuity of Care Document ---
Author Organization [facility] Ramon Lux lt Address [address] [place] [address]- Care Team Providers Care Laundry Helper Name Role Phone Shawn MURRAY, Bailey Sherman Primary Care Physician [place] [facility] [place](s): 05/30/23 - 06/29/23 [facility] Adult [address] [place] [address]- Allergies, Adverse Reactions, Alerts Substance Reaction Severity [...] pneumococcal 23-valent vaccine 12/14/09 Given 1Result Comment: [id number] Medications Albuterol (Eqv-ProAir HFA) 90 mcg/inh inhalation [...] Gm, 1 Refills, Maintenance, 05/27/23 10:45:00 EST, [facility], APPLY TO HANDS 2 [...] 16 mL, 11 Refills, 10/07/22 11:03:00 EDT, [facility], 30, INSTILL 1 SPRAY [...] tablet, 0 Refills, Maintenance, 05/28/23 15:37:00 EST, [facility], Partial fill [...] 19:11:00 EST, Aerosol, Route to Pharmacy Electronically, [id number], [facility], 172, keyonna, 04/22/23 [...] capsule, 0 Refills, Maintenance, 06/02/23 7:53:00 EST, [facility], Partial fill upon patient request if the prescription is for a schedule II opioid drug., 172, cm, 06/02/23 7:37:00 EST, Height Start Date: 06/02/23 Status: Ordered pregabalin 50 mg oral capsule 1 capsule = 50 mg, By Mouth, 3 times a day, # 90 capsule, 2 Refills, Maintenance, 04/15/23 14:47:00EST, Capsule, [facility], Partial fill upon [...] Personnel Name: Shawn MURRAY, Bailey Sherman Position: [facility] PCO Associate Professional Member Role: PCP Address: Address: [address] [place] [address]- Name: Winnie Morgan RN Position: [facility] Onco RN Member Role: Primary Care Nurse Care Team Related Persons Name: ZAFAR BAI Address: home [address] [place] [address] Name: ALANNA HERRERA Address: home [address] [facility] [address] [place] [address]
--- OUTSIDE RECORDS SUMMARY | 2023-12-30 11:18 | XMS_ITS | Continuity of Care Document ---
Author Organization [facility] Adams Navarro Lux lt Address [address] [place] [address]- Care Team Providers Care Medical Lab Specialist Name Role Phone Shawn MURRAY, Bailey Sherman Primary Care Physician [place] [facility] [place](s): 03/25/23 - 04/01/23 [facility] Adams Navarro Adult [address] [place] [address]- Encounter Diagnosis Annual physical exam(Discharge Diagnosis) - 03/25/23 Bipolar disorder(Discharge Diagnosis) - 03/25/23 Lumbar radiculopathy(Discharge Diagnosis) - 03/25/23 Attending Physician: Bailey Escobar NP Referring Physician: [...] acel(Tdap) 1 12/12/20 Given pneumococcal 23-valent vaccine 8/12/10 Given 1Result Comment: [id number] Medications Clobetasol (Eqv-Temovate) 0.05% topical cream See Instructions, APPLY TO HANDS 2 TIMES A DAY NEEDED FOR ECZEMA, # 60 Gm, 1 Refills, Physician Stop 01/29/24 21:00:00 EDT, 01/28/23 14:39:00 EDT, [facility], 15, APPLY TO HANDS [...] 16 mL, 11 Refills, 10/07/22 11:03:00 EDT, [facility], 30, INSTILL 1 SPRAY [...] Acute 05/06/23 21:00:00 EST, 02/03/23 18:46:00 EDT, [facility], Partial fill upon patient [...] Effective Dates Health Status Clinical Service Informant Annual physical exam Discharge Diagnosis 03/25/23 Bipolar disorder Discharge Diagnosis 03/25/23 Lumbar radiculopathy Discharge Diagnosis 03/25/23 Vital Signs Most recent to oldest [Reference Range]: 1 Height 172 cm (03/25/23 2:14 PM) Weight 81.1 kg (03/25/23 2:14 PM) Oxygen Saturation [94-100 %] 99 % (03/25/23 2:14 PM) Pulse Rate [55-90 bpm] 83 bpm (03/25/23 2:14 PM) Body Mass Index [18.5-24.99 kg/m2] 27.41 kg/m2 *H* (03/25/23 2:14 PM) Blood Pressure [90-138/55-84 mm Hg] 126/ 79mm Hg (03/25/23 2:14 PM) Blood pressure sites Arm, right (03/25/23 2:14 PM) Weight Obtained Via Standing scale (03/25/23 2:14 PM) Social History Social History Type Response Tobacco Other: lifetime nons moker. Sex Note * Leyda Ruano: PERFORM, SIGN, VERIFY Event Display: Patient Education/Instruction Authored Date: [id number] [facility] *BMP So Ramon Martinez Clinical Summary Name JES BAI Age 57 Years 1965 PCP aBiley Escobar NP PCP Visit Date 03/25/2023 14:10:00 Additional Instructions: Scheduled Appointments?? Future Appointments ?No Future Appointments Scheduled Follow-Up Instructions ?? With: Address: When: Bailey Escobar NP Within 6 months Comments: 40 mintues 6month f/u With: Address: When: Bailey Escobar NP Within 1 year Comments: CPE Diagnosis Encounter for general adult medical examination without abnormal findings; Bipolar disorder, unspecified; Radiculopathy, site unspecified; Polyneuropathy, unspecified; Radiculopathy, lumbar region Medications: Please continue your medications until treatment [...] 3. Next Dose: Multivitamin Daily. Next Dose: Pregabalin (pregabalin 50 mg oral capsule) 1 capsule Oral 3 times a day. Refills: 0. Next Dose: Quetiapine (QUEtiapine 100 mg oral tablet) 1 TAB DAILY PRN. Next Dose: Vitamin E Oral Daily. Next Dose: Allergy Info:?? Latex Medications Given This Visit Future Orders ?No future orders Vital Signs Height 172 cm Weight 81.1 kg BMI 27.41 kg/m2 Blood Pressure 126 mm Hg/79 mm Hg Temperature Pulse Rate 83 bpm Respiratory Rate 02 Sat Mode of Delivery 99 %/ You can now view a summary of your hospital visit from the comfort of your home through a free online portal called [employer]. [employer] is a website that allows you to securely view your medical information including discharge summary, medications and follow-up visits. ??You can alsosend a secure electronic message to your doctor???s office to request appointments, renew medications or just ask a question. You can enroll at [email or web address] or register during your next office [...] primary care provider, you may find a [facility] provider by calling [facility] [employer] Link at [phone]. [facility], in keeping with [facility] guidance, no longer requires face masks for [...] Team Personnel Name: Bailey Escobar NP Position: [facility] PCO Associate Professional Member Role: PCP Address: Address: [address] [place] [address] - Name: Winnie Morgan RN Position: [facility] Onco RN Member Role: Primary Care Nurse Care Team Related Persons Name: ZAFAR BAI Address: home [address] [place] [address] Name: ALANNA HERRERA Address: home [address] [address]
--- OUTSIDE RECORDS SUMMARY | 2023-12-30 11:18 | XMS_ITS | Continuity of Care Document ---
Author Organization [facility] Ramon Lux lt Address [address] [place] [address]- Care Team Providers Care Mannequin Sander And Finisher Name Role Phone Joey Lam MD Primary Care Physician [phone] Encounter [facility] Date(s): 12/14/20 - 12/21/20 [facility] Adult [address] [place] [address]- Encounter Diagnosis General medical exam(Discharge Diagnosis) - 12/14/20 Right hip pain(Discharge Diagnosis) - 12/14/20 Arthritis of right hip(Discharge Diagnosis) - 12/14/20 Bipolar disease, chronic(Discharge Diagnosis) - 12/14/20 Beta thalassemia, heterozygous(Discharge Diagnosis) - 12/14/20 Irritable bowel syndrome with constipation(Discharge Diagnosis) - 12/14/20 Trochanteric bursitis of right hip(Discharge Diagnosis) - 12/14/20 Attending Physician: Joey Lam MD Allergies, Adverse [...] pneumococcal 23-valent vaccine 12/14/09 Given 1Result Comment: [id number] Medications Clobetasol (Eqv-Temovate) 0.05% topical cream See Instructions, APPLY TO HANDS 2 TIMES A DAY NEEDED FOR ECZEMA, # 60 Gm, 1 Refills, Maintenance, 09/25/20 16:48:00 EDT, [id number], APPLY TO HANDS 2 TIMES A DAY [...] Effective Dates Health Status Clinical Service Informant Right hip pain Discharge Diagnosis 12/14/20 Beta thalassemia, heterozygous Discharge Diagnosis 12/14/20 Bipolar disease, chronic Discharge Diagnosis 12/14/20 Irritable bowel syndrome with constipation Discharge Diagnosis 12/14/20 Arthritis of right hip Discharge Diagnosis 12/14/20 Trochanteric bursitis of right hip Discharge Diagnosis 12/14/20 General medical exam Discharge Diagnosis 12/14/20 Vital Signs Most recent to oldest [Reference Range]: 1 Height 172.72 cm (12/14/20 10:46 AM) Weight 74.4 kg (12/14/20 10:46 AM) Oxygen Saturation [94-100 %] 98 % (12/14/20 10:46 AM) Pulse Rate [55-90 bpm] 88 bpm (12/14/20 10:46 AM) Body Mass Index [18.5-24.99] 24.94 (12/14/20 10:46 AM) Blood Pressure [90-138/55-84 mm Hg] 104/ 62mm Hg (12/14/20 10:46 AM) Temperature [96.8-100.4 DegF] 98.8 DegF (12/14/20 10:46 AM) Mode of Delivery (Oxygen) Room air (12/14/20 10:46 AM) Blood pressure sites Arm, left (12/14/20 10:46 AM) Temperature Route Oral (12/14/20 10:46 AM) Weight Obtained Via Standing scale (12/14/20 10:46 AM) Social History Social History Type Response Tobacco Other: lifetime nons moker. Sex
--- OUTSIDE RECORDS SUMMARY | 2023-12-30 11:18 | XMS_ITS | Continuity of Care Document ---
Author Organization [facility] Adams Navarro Lux lt Address [address] [place] [address]- Care Team Providers Care Pharmacy Technician Infusion Name Role Phone Bailey Escobar NP Primary Care Physician Encounter [facility] [place] Date(s): 08/14/23 - 08/21/23 [facility] Adams Navarro Adult [address] [place] [address]- Encounter Diagnosis Acute sinusitis(Discharge Diagnosis) - 08/14/23 Cough(Discharge Diagnosis) - 08/14/23 Attending Physician: Ramakrishna RUDOLPHPKeli Robbins Referring Physician: Bailey Escobar NP Allergies, Adverse Reactions, Alerts Substance Reaction Severity Status Latex Active Immunizations Given and Recorded Vaccine Date Status Refusal Reason influenza virus vaccine, inactivated 02/10/23 Ozzy rded influenza virus vaccine, inactivated 02/26/22 Ozzy rded influenza virus vaccine, inactivated 01/15/21 Ozzy rded influenza virus vaccine, inactivated 01/12/20 Ozzy rded influenza virus vaccine, inactivated 02/02/19 Ozyz rded influenza virus vaccine, inactivated 01/20/18 Ozzy rded influenza virus vaccine, inactivated 02/07/17 Ozzy rded influenza virus vaccine, inactivated 03/24/16 Ozzy rded SARS-CoV-2 (COVID-19) mRNA BNT-162b2 vac 12/20/20 Recorded SARS-CoV-2 (COVID-19) mRNA BNT-162b2 vac 06/26/20 Recorded SARS-CoV-2 (COVID-19) mRNA BNT-162b2 vac 06/05/20 Recorded tetanus/diphtheria/pertussis, acel(Tdap) 1 12/12/20 Given pneumococcal 23-valent vaccine 12/14/09 Given 1Result Comment: [id number] Medications Albuterol (Eqv-ProAir HFA) 90 mcg/inh inhalation aerosol 2 puffs, Inhalation, Every 6 hours, PRN NEEDED FOR WHEEEZING OR FOR SHORTNESS OF BREATH, # 8.5 Gm, 0 Refills, Maintenance, 06/07/23 10:19:00 EST, [facility] # [facility], 25, INHALE 2 PUFFS EVERY 6 HOURS NEEDED FOR WHEEEZING OR FOR SHORTNESS OF DESIREE... Start Date: 06/07/23 Status: Ordered Clobetasol (Eqv-Temovate) 0.05% topical cream See Instructions, APPLY TO HANDS 2 TIMES A DAY NEEDED FOR ECZEMA, # 60 Gm, 1 Refills, Maintenance, 05/27/23 10:45:00 EST, [facility] # [facility], APPLY TO HANDS [...] Gm, 0 Refills, Maintenance, 08/14/23 15:20:00 EDT, [facility] # [facility], Partial fill upon patient request if the prescription is for a schedule II opioid drug., 172, cm, 06/02/23 8:13:00 EST, Height Start Date: 08/14/23 Status: Ordered fluticasone 50 mcg/inh nasal spray See Instructions, INSTILL 1 SPRAY INTO EACH NOSTRIL TWICE A DAY, # 16 mL, 11 Refills, 10/07/22 11:03:00 EDT, [facility] # [facility], 30, INSTILL 1 SPRAY [...] tablet, 0 Refills, Maintenance, 05/28/23 15:37:00 EST, [facility] # [facility], Partial fill upon patient request if the prescription is for a schedule II opioid drug., 1 tablet By Mouth Every 12 hours, 172, cm, 12... Start Date: 05/28/23 Status: Ordered mometasone 110 mcg/inh inhalation aerosol powder 1, puffs, Inhalation, Daily in PM, # 0.24 Gm, Refills 0, Tot. Refills 0, Maintenance, 05/29/23 19:11:00 EST, Aerosol, Route to Pharmacy Electronically, [id number], [facility], 172, [...] Dates Health Status Cl inical Service Informant Acute sinusitis Discharge Diagnosis 08/14/23 Cough Discharge Diagnosis 08/14/23 Vital Signs Most recent to oldest [Reference Range]: 1 Height 172 cm (08/14/23 2:00 PM) Social History Social History Type Response Tobacco Other: lifetime nons moker. Sex Patient Care team information Care Team Personnel Name: Shawn MURRAY, Bailey Sherman Position: [facility] PCO Associate Professional Member Role: PCP Address: Address: [address] [place] [address]- Name: Eddie RNWinnie Position: [facility] Onco RN Member Role: Primary Care Nurse Care Team Related Persons Name: ZAFAR BAI Address: home [address] [place] [id number] Name: ALANNA HERRERA Address: home [address] [address]
--- OUTSIDE RECORDS SUMMARY | 2023-12-30 11:18 | XMS_ITS | Continuity of Care Document ---
Author Organization [facility] Adams Navarro Lux lt Address [address] [place] [address]- Care Team Providers Care Personal Attendant Name Role Phone Shawn MURRAY, Bailey Sherman Primary Care Physician Encounter [facility] [place] Date(s): 10/09/23 - 10/16/23 [facility] Adams Navarro Adult [address] [place] [address]- Encounter Diagnosis Bipolar disorder(Discharge Diagnosis) - 10/09/23 Attending Physician: Bailey Escobar NP Referring Physician: [...] pneumococcal 23-valent vaccine 12/14/09 Given 1Result Comment: [id number] Medications Albuterol (Eqv-ProAir HFA) 90 mcg/inh inhalation aerosol 2 puffs, Inhalation, Every 6 hours, PRN NEEDED FOR WHEEEZING OR FOR SHORTNESS OF BREATH, # 8.5 Gm, 0 Refills, Maintenance, 06/07/23 10:19:00 EST, [facility] # [facility], 25, INHALE 2 PUFFS EVERY 6 HOURS NEEDED FOR WHEEEZING OR FOR SHORTNESS OF DESIREE... Start Date: 06/07/23 Status: Ordered Clobetasol (Eqv-Temovate) 0.05% topical cream See Instructions, APPLY TO HANDS 2 TIMES A DAY NEEDED FOR ECZEMA, # 60 Gm, 1 Refills, Maintenance, 05/27/23 10:45:00 EST, [facility], APPLY TO HANDS [...] Gm, 2 Refills, Maintenance, 10/14/23 16:02:00 EDT, [facility] # [facility], Partial fill upon patient [...] tablet, 1 Refills, Maintenance, 10/02/23 8:04:00 EDT, [facility] # [facility], 30, TAKE ONE TABLET BY MOUTH EVERY 12 HOURS, 172, cm, 08/14/23 17:05:00 EDT, Height Start Date: 10/02/23 Status: Ordered mometasone 110 mcg/inh inhalation aerosol powder 1, puffs, Inhalation, Daily in PM, # 0.24 Gm, Refills 0, Tot. Refills 0, Maintenance, 05/29/23 19:11:00 EST, Aerosol, Route to Pharmacy Electronically, [id number], [facility], 172, cm, 04/22/23 [...] capsule, 5 Refills, Maintenance, 07/07/23 9:22:00 EST, [facility] # [facility], 172, cm, 06/02/23 8:13:00 EST, Height Start Date: 07/07/23 Status: Ordered pregabalin 75 mg oral capsule 1 capsule = 75 mg, By Mouth, 3 times a day, # 270 capsule, 1 Refills, Maintenance, 10/09/23 10:25:00 EDT, Capsule, [facility] # [facility], Partial fill upon patient request if the prescription is for a schedule II opioid drug., 172, cm, 10/09/23 9:59:00... Start Date: 10/09/23 Status: Ordered QUEtiapine 100 mg oral tablet [...] Dates Health Status Cl inical Service Informant Bipolar disorder Discharge Diagnosis 10/09/23 Vital Signs Most recent to oldest [Reference Range]: 1 Height 172 cm (10/09/23 9:59 AM) Weight 87.6 kg (10/09/23 9:59 AM) Oxygen Saturation [94-100 %] 100 % (10/09/23 9:59 AM) Pulse Rate [55-90 bpm] 73 bpm (10/09/23 9:59 AM) Body Mass Index [18.5-24.99 kg/m2] 29.61 kg/m2 *H* (10/09/23 9:59 AM) Blood Pressure [90-138/55-84 mm Hg] 123/ 77mm Hg (10/09/23 9:59 AM) Respiratory Rate [16-30 br/min] 18 br/mi n (10/09/23 9:59 AM) Temperature [96.8-100.4 DegF] 98.1 DegF (10/09/23 9:59 AM) Mode of Delivery (Oxygen) Room air (10/09/23 9:59 AM) Blood pressure sites Arm, right (10/09/23 9:59 AM) Temperature Route Oral (10/09/23 9:59 AM) Weight Obtained Via Standing scale (10/09/23 9:59 AM) Social History Social History Type Response Tobacco Other: lifetime nons moker. Sex Note * Cathy Negron: PERFORM Event Display: Patient Education/Instruction Authored Date: Ambulatory Adult Visit Summary [facility] Adult [address] [address] Name: JES BAI : 1965?? Visit: 10/09/2023 09:55?? Ambulatory Visit Instructions ?? Your Care Team Primary Care Provider Bailey Escobar NP? This Visit Provider Bailey Escobar NP Your Diagnosis Bipolar disorder Annual physical exam Beta thalassemia Screening for prostate cancer Lumbar radiculopathy Vitals Signs Temperature: 98.1 DegF Height: 172 cm Pulse Rate: 73 bpm Weight: 87.6 kg Respiratory Rate: 18 br/min Body Mass Index:??29.61 kg/m2??High Systolic Blood Pressure: 123 mm Hg Body surface area: 2.05 Diastolic Blood Pressure: 77 mm Hg ?? Oxygen Saturation: 100 % ?? What to do next Follow-Up Appointments Follow Up with??Shwan MURRAY, Bailey Sherman When:??Within 6 months Why: CPE Where: [address] [place] [address]- Future Orders Comprehensive Metabolic Panel - Once, *Est. 04/24/23, Future Order?? Lipid Panel - Once, *Est. 04/24/23, Future Order?? PSA - Once, *Est. 04/24/23, Future Order?? CBC w/ Differential - Once, *Est. 04/24/23, Future Order?? Comprehensive Metabolic Panel - Routine, Once, 10/09/23 10:06:00 EDT, Future Order, [facility], Blood?? Lipid Panel - Routine, Once, 10/09/23 10:06:00 EDT, Future Order, [facility], Blood?? CBC w/ Differential - Routine, Once, 10/09/23 10:06:00 EDT, Future Order, [facility], Blood?? PSA - Routine, Once, 10/09/23 10:06:00 EDT, Future Order, [facility], Blood?? Medications The list below reflects the information in our records and provided by you today along with any changes made during this visit. Please continue your medications until treatment is completed or stopped by your provider. If this is different from the information you have or there are other questions,please contact the prescribing provider. What How Much When Why Instructions Changed Pregabalin (pregabalin 75 mg oral capsule) 1 capsule Oral 3 times a day Lumbar radiculopathy Pickup at [facility] Unchanged Albuterol (Albuterol (Eqv-ProAir [...] mcg/ inh nasal spray) See instructions Cough 1 sprays Daily in each nostril ?? Unchanged Fluticasone Nasal (fluticasone 50 mcg/ inh nasal spray) See instructions Allergies INSTILL 1 SPRAY INTO EACH NOSTRIL TWICE A DAY ?? Unchanged Glucosamine Oral Unchanged Loratadine-Pseudoephedrine (Loratadine-D 12 Hour oral tablet, extended release) 1 tab(s) Oral Every 12 hours Unchanged Mometasone (mometasone 110 mcg/ inh inhalation aerosol powder) 1 puff(s) Inhalation Daily in PM Cough Bronchitis Unchanged Multivitamin Daily Unchanged Omeprazole (omeprazole 20 mg oral enteric coated capsule) 1 capsule Oral Daily Unchanged Quetiapine (QUEtiapine 100 mg oral tablet) See instructions 1 TAB DAILY PRN ?? Unchanged Vitamin E Oral Daily Pharmacy Information [facility] # [facility]: [address] [place], [place] [id number] [phone] Test Performed Below is a partial list of the tests performed during your Visit. You may have had other tests and procedures not included in this list. Please discuss all test results with your provider. CBC w/ Differential?-- Results Pending -- Comprehensive Metabolic Panel?-- Results Pending -- Lipid Panel?-- Results Pending -- PSA?-- Results Pending -- You will be contacted within 72 hours with your results. Medications and Immunizations Administered Medications Given During [...] are strongly encouraged to quit. Please call [facility] at [phone] or [phone] ([phone]) or log in to [email or web address] for referrals to smoking cessation programs. ?? The National Suicide Prevention Hotline is available 25/11 if you or someone you know needs to find a reason to keep living. By calling 8-828-741-[employer] (6746) you'll be connected to a skilled, trained counselor at a crisis center in your area. [facility] You can view and manage your care through the patient portal or by using a health care eddy of your choosing. [employer] is a website that allows you to securely view your medical information including your hospital discharge summary, office visit summaries, medications and follow-up visits. You can also request appointments, renew medications, and request access to your medical information using a health care eddy of your choosing, or just ask a question. You can enroll at [email or web address] or register during your next office visit. [facility], in keeping with [facility] guidance, no longer requires face masks for [...] primary care provider, you may find a [facility] provider by calling [facility] at [phone]. Patient Care team information Care Team Personnel Name: Bailey Escobar NP Position: [facility] PCO Associate Professional Member Role: PCP Address: Address: [address] [place] [address]- Name: Winnie Morgan RN Position: [facility] Onco RN Member Role: Primary Care Nurse Care Team Related Persons Name: ZAFAR BAI Address: home [address] [place] [address] Name: ALANNA HERRERA Address: home [address] [facility] [address] [place] [address]
--- OUTSIDE RECORDS SUMMARY | 2023-12-30 11:18 | XMS_ITS | Continuity of Care Document ---
Author Organization [facility] Adams Navarro Lux Address [address] [place] [address]- Care Team Providers Care Inspector Watch [employer] Name Role Phone Joey Lam MD Primary Care Physician [phone] Encounter [facility] Date(s): 12/15/20 - 01/14/21 [facility] Adams Navarro Adult [address] [place] [address]- Allergies, Adverse Reactions, Alerts Substance Reaction Severity [...] pneumococcal 23-valent vaccine 12/14/09 Given 1Result Comment: [id number] Medications Clobetasol (Eqv-Temovate) 0.05% topical cream See Instructions, APPLY TO HANDS 2 TIMES A DAY NEEDED FOR ECZEMA, # 60 Gm, 5 Refills, [facility] , 15, APPLY TO HANDS 2 [...]
--- NOTE | 2023-12-30 11:47 | A.OFFPSYCH_ITS ---
Intake Intake Visit Reasons: depression Allergies iron [IRON] Allergy (Severe, Unverified 01/20/20 18:11) UNKNOWN Medication List - Last Reconciled 12/30/23 by Lavelle Michaels MD clonazepam 1 mg orally Take 1/2 to 1 tablet three times a dayas needed for anxiety/yessenia DO NOT EXCEED 3 TABLETS A DAY; try to decrease to 2mg as possible; dorzolamide-timolol 22.3-6.8 mg/mL mL ophthalmic (eye) latanoprost 0.005% 0 drps ophthalmic (eye) pregabalin 100 mg PO BID quetiapine 100 mg PO BEDTIME PRN ramelteon 8 mg PO BEDTIME PRN 30 days HPI- Psychiatric Chief Complaint: depression HPI Narrative: Patient seen psychiatric follow-up continues to only use Seroquel on an as- needed basis clonazepam denies alcohol use. Patient has ongoing stress with racing 4 children working from home and his with chronic medical problems that caused and chronic pericarditis. Patient often feels stressed and anxious in the past enjoyed his yessenia is which would last for 1-2 weeks would often accomplish a lot during these elevated states but more recently has had longer episodes of depression as he gets older. He is also dealing with chronic pain issues in his back question neuropathy and also status post hip replacement we have discussed repeatedly medication treatments for bipolar disorder he had felt lethargic on them in the past with significant weight gain and has been hesitant. Past Psychiatric History: 49 yo male returns foacts his life r followup. Has not been seen since July 2014. The patient has been off Trileptal for the past 3 months. His a history of bipolar disorder, marked by periods of depression, and elevated mood state, particularly in the spring and summer. In the past. She would self medicate with alcohol, but has been sober for one year. He is meditating trying to get regular. Sleep, and manage his stress in such a way as to not trigger. His bipolar disorder. 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 Has been working in [place] with [employer]der[employer]/ Pt is dealing with the of his father over past yr Pt has been in therapy still feels stable , balancing family and work. 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 Mild expensive periods and mild depressive periods. He is generally able to manage his life trying to work at work balance. Things at home and work are going well. No psychotic episodes, no serious depressive episodes. Patient does have Seroquel as needed. He does use Klonopin for sleep and breakthrough hypomaniaPatient also uses for stroll for sleep. No recent use of mood stabilizing agents such as Trileptal past treatment with lithium. He states he is stable on current regimen is aware of how to reach this resume writer if needed Current note for 2017 patient seen psychotic follow-up. His has been having significant medical difficulty in the patient was forced to resign from his work so he could be home in take care of the children. His is currently out of work. He has generally not been taking Trileptal or SeroquelHe denies any civic significant depressive episodes some mild periods practically of the winter occasional hypomanic periods. 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 This is a tele health appointment patient gives consent. Patient has been overwhelmed and stress with multiple factors. His has problems with chronic pericarditis in supraventricular tachycardia and has chronic pain causing significant irritability, health problems and stress. The patient had also been in a hypomanic state and bought a number of expensive cars on credit and this has been somewhat crushing to him and has been overwhelming. Difficulty with sleep and anxiety. No thoughts of self-harm. Patient remains sober. Clonazepam has been helpful. Only taking limited amounts of Seroquel. Chronically has avoided mood stabilizing agents because of significant weight gain lethargy. No self-harming thoughts patient is working from home but also to taking care of his 3 children essentially second time worker. Has limited support and help at this time. Current note for 07/06/2020 Patient seen in psychiatric follow-up. The patient's mood at this point has been chronically anxious cycling with periods of agitation irritability periods of insomnia but patient basically maintaining his functioning ability to manage his business and his children. He is on clonazepam at HS strongly urged regular use of Seroquel at bedtime has not wanted to go back on other mood stabilizing agents such as lithium Depakote Tegretol. He denies periods of marked impulsive overspending he states he has been managing the family's finances he last year over spent on investment in exotic cars. Strongly urged regular sleep habits patient denies regular alcohol use which has been a problem in the past. 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 Patient has generally not been willing to take a mood stabilizing agent stated they were all to sedating made him lethargic or significant weight gain. He does intermittently take Seroquel we have talked about taking Seroquel on a regular basis had to try and train his sleep. Patient denies thoughts of harm to himself or others. He states he is able to function does count on his periods of hypomania past alcohol use and self- medication denies currently Current note for 02/27/2021 Patient seen in psychiatric follow-up Patient has been difficult time he tends to be quite stoic his had been out with surgery feeling overwhelmed taking care of her taking care of kids. Has had more anxiety irritability periods of cycling. He has not been willing essentially to use any treatment mood stabilizing agents has felt in the past that they were Sav have him emotionally or cause severe weight gain. The patient has periods of despair he denies any active thoughts of self-harm. His also been having significant pain and feels he has not been giving answers from his physician. May need hip surgery. Patient denies that he has been actively drinking. Patient continues to supervise his children has been dealing with his 's chronic illness and myocarditis pericarditis which they have been unable to manage. She had recent surgery this disc 0 okay. The patient with some periods of mixed states he denies any thoughts of self-harm. He does continue to sees therapist regularly we have discussed how over time bipolar disorder cannot just be managed through counseling alone Had bad experiences with medication the past he has been accepting low-dose Seroquel intermittently clonazepam. For hoping to train sleep. Patient again adamantly denies any thoughts of harm to himself or others despite feeling overwhelmed and upset over what orthopedic surgery may mean for him. current note for 04/11/21 Pt seen in f/u mood improved dealing with issues in better way pt on steroid taper did not become manic took 100 mg hs seroquel while on steroids . Patient's also participated stated patient was doing better cyst seen more able to handle things did have periods of anxiety with prednisone and agitation. We have discussed need for managing sleep-wake cycle and bipolar disorder. The patient did eventually require back surgery he is recovering Current note for June 06, 2021 Patient seen psychiatric follow-up. The patient continues to have some degree of anxiety feels somewhat overwhelmed. He did have recent surgery Mental Status Exam Mental Status Exam Patient Appearance: Well Grooomed Patient Orientation: Person, Place, Time and Situation Level of Consciousness: Awake Patient Behavior: Appropriate Behavior Comments: anxious stress in appearance Mood Description: Constricted, Depressed and Anxious Affect Description: Appropriate, Constricted and Apprehensive Patient Cognition Impaired: No Ability to Follow Directions: Good Speech Pattern: Clear Memory Description: Intact Hallucinations: None Delusions: Not Present Thought Process: Intact and Rumination Thought Content: positive for Intact, positive for Logical, negative for Suicidal Ideation or negative for Homicidal Ideation Depressive Symptoms: Increased Anxiety, Increased Irritability, Feelings of Worthlessness, Unhappiness and Loss of Energy Judgement: Fair Judgement and Insight: Some degree of impaired judgment regarding not integrating greater treatment for his bipolar disorder ongoing has accepted low-dose Seroquel Patient did take in information regarding Lamictal literature given Assessment and Plan Assessment & Plan (1) Bipolar 2 disorder: Status: Acute Code(s): F31.81 - Bipolar II disorder (2) OCD (obsessive compulsive disorder): Status: Acute Code(s): F42.9 - Obsessive-compulsive disorder, unspecified (3) Alcohol use disorder in remission: Status: Acute Code(s): F10.91 - Alcohol use, unspecified, in remission Plan Risks benefits alternatives to essentially untreated bipolar disorder discussed option of lamotrigine patient unclear if he ever had an allergic reaction patient has not infrequent cycling periods of getting euphoria hyperactivity impulsivity and then longer periods of dysphoria no SI We also discussed option of Latuda Vraylar kappa light for depressive. Counseling and coordination of Care Details-Self Mgmt counseling: Ongoing discussion regarding appropriate an evidence based treatment of bipolar disorder and its impact on his life the level of his cycling Medication management counseling: Effectiveness, Side effects and Dosing range Diagnosis and Prognosis Counseling: Impact of diagnosis on life functions, Problematic behaviors secondary to diagnosis and Adequacy of current interventions Details: I spent [40] minutes reviewing the record, seeing the patient and documenting in the medical record. Counseling provided to the patient/caregiver as outlined below. Addressed patient/caregiver concerns regarding current medication regime including effective adherence. Addressed patient/caregiver concerns regarding diagnosis and prognosis including accuracy of diagnosis, prognosis over time, impact of diagnosis. Addressed patient/caregiver concerns regarding impact of recent stressors. 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 He lives with his and two children in [facility]. He does manage in [employer]. His is a nurse has been verbally aggressive . He does have a history of alcohol abuse reportedly sober Substance History: hx alcohol abuse denies current Coding Level of Care Code Est Pt Level 3 (28515) Therapy 30m w/E&M (84787) Diagnoses Bipolar 2 disorder F31.81 OCD (obsessive compulsive disorder) F42.9 Alcohol use disorder in remission F10.91
== END 2023-12-30 12:13 | disposition home or self-care (01) ==
LOC: HO.HOP 11:13
PROVIDERS: Visit Provider Psychiatry & Neurology Psychiatry
DX: F31.81 Bipolar II disorder (principal); F42.9 Obsessive-compulsive disorder, unspecified; F10.91 Alcohol use, unspecified, in remission
CPT/HCPCS: 90833; 99213

== ENCOUNTER → 2023-12-30 11:13 | Outpatient (BNVA) | payer OTHER, MEDICAID, SELFPAY | PROVIDERS: Visit Provider Psychiatry & Neurology Psychiatry ==

== ENCOUNTER 2024-04-08 17:53 | Outpatient (AMB) | payer OTHER, MEDICAID, SELFPAY ==
--- NOTE | 2024-04-08 14:55 | MHC.OFFVISPS ---
Intake Intake Visit Reasons: depression Allergies iron [IRON] Allergy (Severe, Unverified 01/20/20 18:11) UNKNOWN Medication List - Last Reconciled 04/08/24 by Lavelle Michaels MD clonazepam 1 mg orally Take 1/2 to 1 tablet three times a dayas needed for anxiety/yessenia DO NOT EXCEED 3 TABLETS A DAY; try to decrease to 2mg as possible; dorzolamide-timolol 22.3-6.8 mg/mL mL ophthalmic (eye) latanoprost 0.005% 0 drps ophthalmic (eye) pregabalin 100 mg PO BID quetiapine 100 mg PO BEDTIME PRN ramelteon 8 mg PO BEDTIME PRN 30 days HPI- Psychiatric Chief Complaint: depression HPI Past Psychiatric History: 49 yo male returns foacts his life r followup. Has not been seen since July 2014. The patient has been off Trileptal for the past 3 months. His a history of bipolar disorder, marked by periods of depression, and elevated mood state, particularly in the spring and summer. In the past. She would self medicate with alcohol, but has been sober for one year. He is meditating trying to get regular. Sleep, and manage his stress in such a way as to not trigger. His bipolar disorder. 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 [facility] Has been working in [place] with broderick tuan virgilio/ Pt is dealing with the of his father over past yr Pt has been in therapy still feels stable , balancing family and work. works pt supportive family and [employer]. 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 Mild expensive periods and mild depressive periods. He is generally able to manage his life trying to work at work balance. Things at home and work are going well. No psychotic episodes, no serious depressive episodes. Patient does have Seroquel as needed. He does use Klonopin for sleep and breakthrough hypomaniaPatient also uses for stroll for sleep. No recent use of mood stabilizing agents such as Trileptal past treatment with lithium. He states he is stable on current regimen is aware of how to reach this story writer if needed Current note for 2017 patient seen psychotic follow-up. His has been having significant medical difficulty in the patient was forced to resign from his work so he could be home in take care of the children. His is currently out of work. He has generally not been taking Trileptal or SeroquelHe denies any civic significant depressive episodes some mild periods practically of the winter occasional hypomanic periods. 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 This is a tele health appointment patient gives consent. Patient has been overwhelmed and stress with multiple factors. His has problems with chronic pericarditis in supraventricular tachycardia and has chronic pain causing significant irritability, health problems and stress. The patient had also been in a hypomanic state and bought a number of expensive cars on credit and this has been somewhat crushing to him and has been overwhelming. Difficulty with sleep and anxiety. No thoughts of self-harm. Patient remains sober. Clonazepam has been helpful. Only taking limited amounts of Seroquel. Chronically has avoided mood stabilizing agents because of significant weight gain lethargy. 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 Has limited support and help at this time. Current note for 07/06/2020 Patient seen in psychiatric follow-up. The patient's mood at this point has been chronically anxious cycling with periods of agitation irritability periods of insomnia but patient basically maintaining his functioning ability to manage his business and his children. He is on clonazepam at HS strongly urged regular use of Seroquel at bedtime has not wanted to go back on other mood stabilizing agents such as lithium Depakote Tegretol. He denies periods of marked impulsive overspending he states he has been managing the family's finances he last year over spent on investment in exotic cars. Strongly urged regular sleep habits patient denies regular alcohol use which has been a problem in the past. 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 Patient has generally not been willing to take a mood stabilizing agent stated they were all to sedating made him lethargic or significant weight gain. He does intermittently take Seroquel we have talked about taking Seroquel on a regular basis had to try and train his sleep. Patient denies thoughts of harm to himself or others. He states he is able to function does count on his periods of hypomania past alcohol use and self-medication denies currently Current note for 02/27/2021 Patient seen in psychiatric follow-up Patient has been difficult time he tends to be quite stoic his had been out with surgery feeling overwhelmed taking care of her taking care of kids. Has had more anxiety irritability periods of cycling. He has not been willing essentially to use any treatment mood stabilizing agents has felt in the past that they were Sav have him emotionally or cause severe weight gain. The patient has periods of despair he denies any active thoughts of self-harm. His also been having significant pain and feels he has not been giving answers from his physician. May need hip surgery. Patient denies that he has been actively drinking. Patient continues to supervise his children has been dealing with his 's chronic illness and myocarditis pericarditis which they have been unable to manage. She had recent surgery this disc 0 okay. The patient with some periods of mixed states he denies any thoughts of self-harm. He does continue to sees therapist regularly we have discussed how over time bipolar disorder cannot just be managed through counseling alone Had bad experiences with medication the past he has been accepting low-dose Seroquel intermittently clonazepam. For hoping to train sleep. Patient again adamantly denies any thoughts of harm to himself or others despite feeling overwhelmed and upset over what orthopedic surgery may mean for him. current note for 04/11/21 Pt seen in f/u mood improved dealing with issues in better way pt on steroid taper did not become manic took 100 mg hs seroquel while on steroids . Patient's also participated stated patient was doing better cyst seen more able to handle things did have periods of anxiety with prednisone and agitation. We have discussed need for managing sleep-wake cycle and bipolar disorder. The patient did eventually require back surgery he is recovering Current note for June 06, 2021 Patient seen psychiatric follow-up. The patient continues to have some degree of anxiety feels somewhat overwhelmed. He did have recent surgery Mental Status Exam Mental Status Exam Patient Appearance: Well Grooomed Patient Orientation: Person, Place, Time and Situation Level of Consciousness: Awake Patient Behavior: Appropriate Behavior Comments: anxious stress in appearance Mood Description: Constricted, Depressed and Anxious Affect Description: Appropriate, Constricted and Apprehensive Patient Cognition Impaired: No Ability to Follow Directions: Good Speech Pattern: Clear Memory Description: Intact Hallucinations: None Delusions: Not Present Thought Process: Intact and Rumination Thought Content: positive for Intact, positive for Logical, negative for Suicidal Ideation or negative for Homicidal Ideation Depressive Symptoms: Increased Anxiety, Increased Irritability, Feelings of Worthlessness, Unhappiness and Loss of Energy Judgement: Fair Judgement and Insight: Difficulty accepting need for treatment despite repeated encouragement urged couples treatment consideration of seeing an health care attorney Telehealth Telehealth Telehealth Platform: [facility] Location of provider rendering services: practice address Location of patient: address on file Patient Identification confirmed using: Name, : Yes Telehealth method: video Patient verbally consented to treatment: Yes Patient verbally consented to billing insurance company: Yes Minutes spent on Phone/Video with Pt.: 37 Assessment and Plan Assessment & Plan (1) Bipolar 2 disorder: Status: Acute Code(s): F31.81 - Bipolar II disorder (2) OCD (obsessive compulsive disorder): Status: Acute Code(s): F42.9 - Obsessive-compulsive disorder, unspecified Plan Patient is in something of a chronic marital stalemate. Describes his as reactive hot headed demeaning to him and at times verbally reactive with kids. This has been an ongoing issue they had had brief marital therapy and the past patient is in ongoing individual counseling. He is not considered forced but appears chronically depressed and overwhelmed in the marriage he continues to not accept need for regular bipolar depression treatment. He does generally take 2 mg of Klonopin daily which appears to be somewhat helpful and managing mood and denies that he has drinking. Have strongly urged regular use of Seroquel 50-100 not just p.r.n.. There are occasional hypomania . Depressions he states have generally been manageable but have become more regular as he has gotten older. He feels a certain lack of support from his and has difficulty when she seems more connected with others when they go out and do things. His has chronic medical problems unclear if this is affecting her psychological functioning Medications: Refilled clonazepam 1 mg orally Take 1/2 to 1 tablet three times a dayas needed for anxiety/yessenia DO NOT EXCEED 3 TABLETS A DAY; try to decrease to 2mg as possible; 90 tabs 1RF Counseling and coordination of Care Pt. Self Management counseling: Breathing, Exercise, Mindfulness and Behavior activation Medication management counseling: Effectiveness, Side effects and Dosing range Diagnosis and Prognosis Counseling: Impact of family relationship Details: I spent [] minutes reviewing the record, seeing the patient and documenting in the medical record. Counseling provided to the patient/caregiver as outlined below. Addressed patient/caregiver concerns regarding current medication regime including effective adherence. Addressed patient/caregiver concerns regarding diagnosis and prognosis including accuracy of diagnosis, prognosis over time, impact of diagnosis. Addressed patient/caregiver concerns regarding impact of recent stressors. 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 He lives with his and two children in [facility]. He does manage in [employer]. His is a nurse has been verbally aggressive . He does have a history of alcohol abuse reportedly sober Substance History: hx alcohol abuse denies current Coding Level of Care Code Est Pt Level 3 (62722) Therapy 30m w/E&M (81297) Diagnoses Bipolar 2 disorder F31.81 OCD (obsessive compulsive disorder) F42.9
== END 2024-04-08 17:53 | disposition home or self-care (01) ==
LOC: HO.HOP 17:53
PROVIDERS: PCP Family Medicine; Visit Provider Psychiatry & Neurology Psychiatry
DX: F31.81 Bipolar II disorder (principal); F42.9 Obsessive-compulsive disorder, unspecified
CPT/HCPCS: 90833; 99213

== ENCOUNTER → 2024-04-08 17:53 | Outpatient (BNVA) | payer OTHER, MEDICAID, SELFPAY | PROVIDERS: PCP Family Medicine; Visit Provider Psychiatry & Neurology Psychiatry ==

== ENCOUNTER 2024-08-03 11:33 | Outpatient (AMB) | payer OTHER, MEDICAID, SELFPAY ==
--- NOTE | 2024-08-03 11:45 | MHC.OFFVISPS ---
Intake Intake Visit Reasons: depression Allergies iron [IRON] Allergy (Severe, Unverified 01/20/20 18:11) UNKNOWN Medication List - Last Reconciled 08/03/24 by Lavelle Michaels MD clonazepam 1 mg orally Take 1/2 to 1 tablet three times a dayas needed for anxiety/yessenia DO NOT EXCEED 3 TABLETS A DAY; try to decrease to 2mg as possible; dorzolamide-timolol 22.3-6.8 mg/mL mL ophthalmic (eye) latanoprost 0.005% 0 drps ophthalmic (eye) pregabalin 100 mg PO BID quetiapine 100 mg PO BEDTIME PRN ramelteon 8 mg PO BEDTIME PRN 30 days HPI- Psychiatric Chief Complaint: depression HPI Narrative: Pt seen in f/u has had epiphany regarding loss of himself in the marriage and as father. has chronic int svt pericarditis chronic.Has had spinal surgery r hip surgery. Is on pregabalin l leg numbness . Periods of dysphoria which usually come after a period of hypomania. Patient has been managing with clonazepam and intermittent use of Seroquel. We have been talking for an extended period of time regarding the use of mood stabilizing agents. He is under chronic stress and pressure no SI. Patient also deals with intrusive OCD with checking counting repeating Past Psychiatric History: 49 yo male returns foacts his life r followup. Has not been seen since July 2014. The patient has been off Trileptal for the past 3 months. His a history of bipolar disorder, marked by periods of depression, and elevated mood state, particularly in the spring and summer. In the past. She would self medicate with alcohol, but has been sober for one year. He is meditating trying to get regular. Sleep, and manage his stress in such a way as to not trigger. His bipolar disorder. 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 [facility] Has been working in [place] with broderick poole/ Pt is dealing with the of his father over past yr Pt has been in therapy still feels stable , balancing family and work. works pt supportive family and [email or web address]. 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 Mild expensive periods and mild depressive periods. He is generally able to manage his life trying to work at work balance. Things at home and work are going well. No psychotic episodes, no serious depressive episodes. Patient does have Seroquel as needed. He does use Klonopin for sleep and breakthrough hypomaniaPatient also uses for stroll for sleep. No recent use of mood stabilizing agents such as Trileptal past treatment with lithium. 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 His has been having significant medical difficulty in the patient was forced to resign from his work so he could be home in take care of the children. His is currently out of work. He has generally not been taking Trileptal or SeroquelHe denies any civic significant depressive episodes some mild periods practically of the winter occasional hypomanic periods. 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 This is a tele health appointment patient gives consent. Patient has been overwhelmed and stress with multiple factors. His has problems with chronic pericarditis in supraventricular tachycardia and has chronic pain causing significant irritability, health problems and stress. The patient had also been in a hypomanic state and bought a number of expensive cars on credit and this has been somewhat crushing to him and has been overwhelming. Difficulty with sleep and anxiety. No thoughts of self-harm. Patient remains sober. Clonazepam has been helpful. Only taking limited amounts of Seroquel. Chronically has avoided mood stabilizing agents because of significant weight gain lethargy. 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 Has limited support and help at this time. Current note for 07/06/2020 Patient seen in psychiatric follow-up. The patient's mood at this point has been chronically anxious cycling with periods of agitation irritability periods of insomnia but patient basically maintaining his functioning ability to manage his business and his children. He is on clonazepam at HS strongly urged regular use of Seroquel at bedtime has not wanted to go back on other mood stabilizing agents such as lithium Depakote Tegretol. He denies periods of marked impulsive overspending he states he has been managing the family's finances he last year over spent on investment in exotic cars. Strongly urged regular sleep habits patient denies regular alcohol use which has been a problem in the past. 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 Patient has generally not been willing to take a mood stabilizing agent stated they were all to sedating made him lethargic or significant weight gain. He does intermittently take Seroquel we have talked about taking Seroquel on a regular basis had to try and train his sleep. Patient denies thoughts of harm to himself or others. He states he is able to function does count on his periods of hypomania past alcohol use and self-medication denies currently Current note for 02/27/2021 Patient seen in psychiatric follow-up Patient has been difficult time he tends to be quite stoic his had been out with surgery feeling overwhelmed taking care of her taking care of kids. Has had more anxiety irritability periods of cycling. He has not been willing essentially to use any treatment mood stabilizing agents has felt in the past that they were Sav have him emotionally or cause severe weight gain. The patient has periods of despair he denies any active thoughts of self-harm. His also been having significant pain and feels he has not been giving answers from his physician. May need hip surgery. Patient denies that he has been actively drinking. Patient continues to supervise his children has been dealing with his 's chronic illness and myocarditis pericarditis which they have been unable to manage. She had recent surgery this disc 0 okay. The patient with some periods of mixed states he denies any thoughts of self-harm. He does continue to sees therapist regularly we have discussed how over time bipolar disorder cannot just be managed through counseling alone Had bad experiences with medication the past he has been accepting low-dose Seroquel intermittently clonazepam. For hoping to train sleep. Patient again adamantly denies any thoughts of harm to himself or others despite feeling overwhelmed and upset over what orthopedic surgery may mean for him. current note for 04/11/21 Pt seen in f/u mood improved dealing with issues in better way pt on steroid taper did not become manic took 100 mg hs seroquel while on steroids . Patient's also participated stated patient was doing better cyst seen more able to handle things did have periods of anxiety with prednisone and agitation. We have discussed need for managing sleep-wake cycle and bipolar disorder. The patient did eventually require back surgery he is recovering Current note for June 06, 2021 Patient seen psychiatric follow-up. The patient continues to have some degree of anxiety feels somewhat overwhelmed. He did have recent surgery Mental Status Exam Mental Status Exam Patient Appearance: Well Grooomed Patient Orientation: Person, Place, Time and Situation Level of Consciousness: Awake Patient Behavior: Appropriate Behavior Comments: anxious stress in appearance Mood Description: Constricted, Depressed and Anxious Affect Description: Appropriate, Constricted and Apprehensive Patient Cognition Impaired: No Ability to Follow Directions: Good Speech Pattern: Clear Memory Description: Intact Hallucinations: None Delusions: Not Present Thought Process: Intact and Rumination Thought Content: positive for Intact, positive for Logical, negative for Suicidal Ideation or negative for Homicidal Ideation Depressive Symptoms: Increased Anxiety, Increased Irritability, Feelings of Worthlessness, Unhappiness and Loss of Energy Judgement: Fair Judgement and Insight: Difficulty accepting need for treatment despite repeated encouragement urged couples treatment consideration of seeing an mechanical development engineer Assessment and Plan Assessment & Plan (1) Bipolar 2 disorder: Status: Acute Code(s): F31.81 - Bipolar II disorder (2) OCD (obsessive compulsive disorder): Status: Acute Code(s): F42.9 - Obsessive-compulsive disorder, unspecified Plan Discussed with patient trying to taper down on clonazepam. That this should not the the primary treatment for bipolar disorder can be somewhat helpful for chronic anxiety related to patient's OCD patient would not be an SSRI or otherwise candidate for treatment with antidepressant that might increase Risk of yessenia. Have spoken for extended period time with patient regarding different mood stabilizing agents and other agents such as Latuda Vraylar antipsychotics that treat bipolar depression. Patient given reading material would check labs Medications: Changed From clonazepam 1 mg orally Take 1/2 to 1 tablet three times a dayas needed for anxiety/yessenia DO NOT EXCEED 3 TABLETS A DAY; try to decrease to 2mg as possible; 90 tabs 1RF To clonazepam 1 mg orally Take 1/2 to 1 tablet needed for anxiety/yessenia DO NOT EXCEED 3 TABLETS A DAY; try to decrease to 2mg as possible; 60 tabs 1RF Counseling and coordination of Care Details: I spent [] minutes reviewing the record, seeing the patient and documenting in the medical record. Counseling provided to the patient/caregiver as outlined below. Addressed patient/caregiver concerns regarding current medication regime including effective adherence. Addressed patient/caregiver concerns regarding diagnosis and prognosis including accuracy of diagnosis, prognosis over time, impact of diagnosis. Addressed patient/caregiver concerns regarding impact of recent stressors. 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 He lives with his and two children in [facility]. He does manage in [employer]. His is a nurse has been verbally aggressive . He does have a history of alcohol abuse reportedly sober Substance History: hx alcohol abuse denies current Coding Level of Care Code Est Pt Level 3 (53555) Therapy 30m w/E&M (60086) Diagnoses Bipolar 2 disorder F31.81 OCD (obsessive compulsive disorder) F42.9
--- OUTSIDE RECORDS SUMMARY | 2024-08-03 14:00 | XMS_ITS | Clinical Summary ---
Author Organization [facility] Address [address] [place] [address] Care Team Providers Care Software Development Test Engineer Name Role Phone Jamal Toth Primary Care Provider [phone] Allergies Active Allergy Reactions Criticality Noted Date Comments Hydromorphone Other (see comments) 07/12/2022 Impulsivity, lack of awareness per 's call 07/12/22. Latex Unknown 07/29/2022 Medications acetaminophen (TYLENOL) 500 mg tablet Take 1,000 mg by mouth. 3 Active aspirin chewable tablet 81 mg Chew and swallow 81 mg by mouth. 3 Active clobetasoL (TEMOVATE) 0.05% cream 2 Active clonazePAM (KlonoPIN) 1 mg tablet 3 Active docusate sodium (COLACE) 100 mg capsule Take 100 mg by mouth. 3 Active dorzolamide-greg oloL (COSOPT) 22.3-6.8 mg/mL ophthalmic solution SMARTSIG:In Eye(s) 3 Active erythromycin (ILOTYCIN) 0.5% ophthalmic ointment 3 Active Sodium Fluoride 5000 Plus 1.1 % cream 3 Active fluticasone propionate (FLONASE) 50 mcg/actuation nasal spray 2 Active HYDROmorphone (DILAUDID) 2 mg tablet 3 Active latanoprost (XALATAN) 0.005% ophthalmic solution SMARTSIG:In Eye(s) 3 Active loratadine (CLARITIN) 10 mg tablet Take 10 mg by mouth once a day. Active meloxicam (MOBIC) 7.5 mg tablet 3 Active methocarbamoL (ROBAXIN) 500 mg tablet 3 Active multivitamin (THERAGRAN) tablet Take 1 tablet by mouth daily. Active mupirocin (BACTROBAN) 2% ointment APPLY 1 APPLICATION TOPICALLY EVERY MORNING & EVERY EVENING APPLY TO EACH NOSTRIL FOR 5 DAYS. 3 Active oxyCODONE IR (ROXICODONE) 5 mg tablet [address] (PROTONIX) 40 mg tablet 3 Active polyvinyl alcohol (ARTIFICIAL TEARS) 1.4% ophthalmic solution 1 drop once daily as needed. Active pregabalin (LYRICA) 150 mg capsule 2 Active QUEtiapine (SEROquel) 100 mg tablet 2 Active senna (SENOKOT) 8.6 mg tablet Take 17.2 mg by mouth. 3 Active Social History Tobacco Use Types Packs/Day Years Used Date Smoking Tobacco: Never Assessed Sex and Gender Information Value Date Recorded Sex Assigned at Not on file Legal Sex Male 10:35 AM EDT Gender Identity Not on file Sexual Orientation Not on file Plan of Treatment Health Maintenance Due Date Last Done Comments Cologuard 1965 Colon Cancer Screening 1965 Colonoscopy 1965 FOBT / Fit Test 1965 HIV Screening 1965 Hepatitis C Screening 1965 Sigmoidoscopy 1965 Hepatitis B Vaccines (1 of 3 - 19+ 3-dose series) 1984 Pneumococcal Vaccine: 50+ Ye ars (2 of 2 - PCV) 12/14/2010 12/14/2009 Zoster Vaccines (1 of 2) 09/14/2015 COVID-19 Vaccine (4 - 2023-2 5 season) 2024 12/20/2020, 06/26/2020, 06/05/2020 Influenza Vaccine (#1) 2024 2, 02/26/2022, 01/15/2021, Additional history exists Alcohol/Substance Use Screening 05/05/2024 Depression Screening and Follow-Up 05/05/2024 Social Drivers of Health Michelle ual Screening 05/05/2024 DTaP,Tdap,and Td Vaccines (3 - Td or Tdap) 12/12/2030 12/12/2020, 01/30/2012 RSV Vaccine (60+ years old a nd patients) (1 - 1-dose 75+ series) 2040 Insurance [employer] Care Teams Software Development Test Engineer Relationship Specialty Start Date End Date Jamal Toth [address] [place] [id number] PCP - General Internal Medicine 07/25/22
--- OUTSIDE RECORDS SUMMARY | 2024-08-03 14:00 | XMS_ITS | Clinical Summary ---
Author Organization [facility] Address [address] [place] [id number] Care Team Providers Care Diamond Powder Technician Name Role Phone Juan Carlos Richardson MD Primary Care Provider [phone] Allergies No known active allergies Medications Medication Sig Dispensed Refills Start Date End Date Status dorzolamide-timolol (COSOPT) 2-0.5 % ophthalmic solutionIndications:T raumatic glaucoma, left, severe stage INSTILL ONE DROP IN THE LEFT EYE TWO TIMES A DAY 10 mL 2 06/02/2024 08/16/2024 Active Encounters Date Type Department Care Team Description 06/01/2024 Refill [facility], [address] [phone] David Ulloa MD Traumatic glaucoma, left, severe stage (Primary Dx) from Last 3 Months Social History Tobacco Use Types Packs/Day Years Used Date Smoking Tobacco: Never Assessed Sex and Gender Information Value Date Recorded Sex Assigned at Not on file Gender Identity Not on file Sexual Orientation Not on file Plan of Treatment Upcoming Encounters Date Type Department Care Team (Late st Contact Info) Description 08/11/2024 11:00 AM EDT Office Visit [facility], [address] [phone] David Ulloa MD [address] [place] [phone] (Fax) Health Maintenance Due Date Last Done Comments Hepatitis C Virus Screening 1965 HIV Screening 1978 DTaP/Tdap/Td Vaccines (1 - Tdap) 1984 Hepatitis B Vaccines (1 of 3 - 19+ 3-dose series) 1984 Colonoscopy 2010 Pneumococcal Vaccines 50+ (1 of 1 - PCV) 09/14/2015 Zoster (Shingles) Vaccine (1 of 2) 09/14/2015 Influenza Vaccine 12/04/2023 02/10/2023, , 01/15/2021, Additional history exists COVID-19 Vaccine ( - 2023-2 5 season) 2024 12/20/2020, 06/26/2020, 06/05/2020 Medical Devices Implanted Type Area Material Coordinator Device Identifier Shelf Expiration Date Model / Serial / Lot Lens Iol 0 D +10 [employer] Mod L [id number] 13mm 6mm Posterior Chamber - [id number] Implanted:Qty: 1 on 06/17/2016 by David Ulloa MD at [facility] [place] Lens [employer] [id number] / [id number] / Care Teams Diamond Powder Technician Relationship Specialty Start Date End Date Juan Carlos Richardson MD [address] [place] [id number] PCP - General 05/23/16
--- OUTSIDE RECORDS SUMMARY | 2024-08-03 14:00 | XMS_ITS | Clinical Summary ---
Author Organization [facility] Address [address] [place] [address] Care Team Providers Care Classroom Instructional Aide Name Role Phone Unavailable Primary Care Provider Unavailabl e Social History Tobacco Use Types Packs/Day Years Used Date Smoking Tobacco: Never Assessed Sex and Gender Information Value Date Recorded Sex Assigned at Not on file Gender Identity Not on file Sexual Orientation Not on file Plan of Treatment Not on file
--- OUTSIDE RECORDS SUMMARY | 2024-08-03 14:00 | XMS_ITS | Referral Summary ---
Author Organization [facility] Address [address] [place] [address] Care Team Providers Care Senior Media Planner Name Role Phone Jamal Toth Primary Care Provider [phone] Allergies Active Allergy Reactions Criticality Noted Date [...] file Plan of Treatment Not on file Insurance [employer] Care Teams Senior Media Planner Relationship Specialty Start Date End Date Jamal Toth: [phone] [address] [place] [id number] PCP - General Internal Medicine 07/25/22
== END 2024-08-03 13:53 | disposition home or self-care (01) ==
LOC: HO.HOP 11:33
PROVIDERS: PCP Family Medicine; Visit Provider Psychiatry & Neurology Psychiatry
DX: F31.81 Bipolar II disorder (principal); F42.9 Obsessive-compulsive disorder, unspecified
CPT/HCPCS: 90833; 99213

== ENCOUNTER → 2024-08-03 11:33 | Outpatient (BNVA) | payer OTHER, MEDICAID, SELFPAY | PROVIDERS: PCP Family Medicine; Visit Provider Psychiatry & Neurology Psychiatry ==

== ENCOUNTER 2024-09-16 11:02 | Outpatient (AMB) | payer OTHER, MEDICAID, SELFPAY ==
--- NOTE | 2024-09-16 11:48 | A.OFFPSYCH_ITS ---
Intake Intake Visit Reasons: depression Allergies iron [IRON] Allergy (Severe, Unverified 01/20/20 18:11) UNKNOWN HPI- Psychiatric Chief Complaint: depression HPI Narrative: Patient seen psychiatric follow-up. Patient does intermittently use Seroquel at HS to moderate his intermittent hyperactivity insomnia racing thoughts and at times impulsive spending. We have long discussed standard treatment which would include preventing cycling that the patient's elevated mood states are often followed by depressive states that last 1-2 weeks that he has long dealt with there have been no catastrophic consequences no suicidal thoughts. Patient was on Depakote lithium Lamictal in the past. He is under chronic stress with his who has chronic pericarditis and chronic irritability patient used to get relief from martial arts but has had difficulty with spinal problems and his hip Past Psychiatric History: 49 yo male returns foacts his life r followup. Has not been seen since July 2014. The patient has been off Trileptal for the past 3 months. His a history of bipolar disorder, marked by periods of depression, and elevated mood state, particularly in the spring and summer. In the past. She would self medicate with alcohol, but has been sober for one year. He is meditating trying to get regular. Sleep, and manage his stress in such a way as to not trigger. His bipolar disorder. 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 [facility] Has been working in [place] with drissDenise poole/ Pt is dealing with the of his father over past yr Pt has been in therapy still feels stable , balancing family and work. works pt supportive family and [employer]. 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 Mild expensive periods and mild depressive periods. He is generally able to manage his life trying to work at work balance. Things at home and work are going well. No psychotic episodes, no serious depressive episodes. Patient does have Seroquel as needed. He does use Klonopin for sleep and breakthrough hypomaniaPatient also uses for stroll for sleep. No recent use of mood stabilizing agents such as Trileptal past treatment with lithium. 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 His has been having significant medical difficulty in the patient was forced to resign from his work so he could be home in take care of the children. His is currently out of work. He has generally not been taking Trileptal or SeroquelHe denies any civic significant depressive episodes some mild periods practically of the winter occasional hypomanic periods. 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 This is a tele health appointment patient gives consent. Patient has been overwhelmed and stress with multiple factors. His has problems with chronic pericarditis in supraventricular tachycardia and has chronic pain causing significant irritability, health problems and stress. The patient had also been in a hypomanic state and bought a number of expensive cars on credit and this has been somewhat crushing to him and has been overwhelming. Difficulty with sleep and anxiety. No thoughts of self-harm. Patient remains sober. Clonazepam has been helpful. Only taking limited amounts of Seroquel. Chronically has avoided mood stabilizing agents because of significant weight gain lethargy. 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 Has limited support and help at this time. Current note for 07/06/2020 Patient seen in psychiatric follow-up. The patient's mood at this point has been chronically anxious cycling with periods of agitation irritability periods of insomnia but patient basically maintaining his functioning ability to manage his business and his children. He is on clonazepam at HS strongly urged regular use of Seroquel at bedtime has not wanted to go back on other mood stabilizing agents such as lithium Depakote Tegretol. He denies periods of marked impulsive overspending he states he has been managing the family's finances he last year over spent on investment in exotic cars. Strongly urged regular sleep habits patient denies regular alcohol use which has been a problem in the past. 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 Patient has generally not been willing to take a mood stabilizing agent stated they were all to sedating made him lethargic or significant weight gain. He does intermittently take Seroquel we have talked about taking Seroquel on a regular basis had to try and train his sleep. Patient denies thoughts of harm to himself or others. He states he is able to function does count on his periods of hypomania past alcohol use and self- medication denies currently Current note for 02/27/2021 Patient seen in psychiatric follow-up Patient has been difficult time he tends to be quite stoic his had been out with surgery feeling overwhelmed taking care of her taking care of kids. Has had more anxiety irritability periods of cycling. He has not been willing essentially to use any treatment mood stabilizing agents has felt in the past that they were Sav have him emotionally or cause severe weight gain. The patient has periods of despair he denies any active thoughts of self-harm. His also been having significant pain and feels he has not been giving answers from his physician. May need hip surgery. Patient denies that he has been actively drinking. Patient continues to supervise his children has been dealing with his 's chronic illness and myocarditis pericarditis which they have been unable to manage. She had recent surgery this disc 0 okay. The patient with some periods of mixed states he denies any thoughts of self-harm. He does continue to sees therapist regularly we have discussed how over time bipolar disorder cannot just be managed through counseling alone Had bad experiences with medication the past he has been accepting low-dose Seroquel intermittently clonazepam. For hoping to train sleep. Patient again adamantly denies any thoughts of harm to himself or others despite feeling overwhelmed and upset over what orthopedic surgery may mean for him. current note for 04/11/21 Pt seen in f/u mood improved dealing with issues in better way pt on steroid taper did not become manic took 100 mg hs seroquel while on steroids . Patient's also participated stated patient was doing better cyst seen more able to handle things did have periods of anxiety with prednisone and agitation. We have discussed need for managing sleep-wake cycle and bipolar disorder. The patient did eventually require back surgery he is recovering Current note for June 06, 2021 Patient seen psychiatric follow-up. The patient continues to have some degree of anxiety feels somewhat overwhelmed. He did have recent surgery Mental Status Exam Mental Status Exam Patient Appearance: Well Grooomed Patient Orientation: Person, Place, Time and Situation Level of Consciousness: Awake Patient Behavior: Appropriate Behavior Comments: anxious stress in appearance Mood Description: Constricted and Anxious Affect Description: Appropriate, Constricted and Apprehensive Patient Cognition Impaired: No Ability to Follow Directions: Good Speech Pattern: Clear Memory Description: Intact Hallucinations: None Delusions: Not Present Thought Process: Intact and Rumination Thought Content: positive for Intact, positive for Logical, negative for Suicidal Ideation or negative for Homicidal Ideation Depressive Symptoms: Increased Anxiety, Increased Irritability, Feelings of Worthlessness, Unhappiness and Loss of Energy Judgement: Fair Judgement and Insight: Discussed multiple treatment options for the patient including lithium. Handouts and literature given labs ordered patient seen to take in information Assessment and Plan Assessment & Plan (1) Bipolar 2 disorder: Status: Acute Code(s): F31.81 - Bipolar II disorder (2) OCD (obsessive compulsive disorder): Status: Acute Code(s): F42.9 - Obsessive-compulsive disorder, unspecified (3) Alcohol use disorder in remission: Status: Acute Code(s): F10.91 - Alcohol use, unspecified, in remission Plan The patient reportedly states that he is willing to consider alternatives has taken in sum the information that he has been given over the past few months. Vaguely remembers being on lithium many years ago we discussed risks benefits alternatives and to get labs. Patient denies current alcohol use he does is clonazepam 2 moderate hypomanic states in addition to Seroquel this appears to be helpful and allowed to maintain his functioning but I have repeatedly discussed how this is not the general standard of care and that his repeated cycling into significant depression although not suicidal does not half to be such part of his life as it currently is. There is resistant and giving up hypomania Orders: Orders Complete Blood Count Auto Diff 09/16/24 F31.81 - Bipolar II disorder, F42.9 - Obsessive-compulsive disorder, unspecified, Z01.818 - Encounter for other preprocedural examination, F10.91 - Alcohol use, unspecified, in remission TSH reflex Free T4 09/16/24 F31.81 - Bipolar II disorder, F42.9 - Obsessive-com pulsive disorder, unspecified, Z01.818 - Encounter for other preprocedural examination, F10.91 - Alcohol use, unspecified, in remission Comprehensive Met. Panel 09/16/24 F31.81 - Bipolar II disorder, F42.9 - Obsessive-compulsive disorder, unspecified, Z01.818 - Encounter for other preprocedural examination, F10.91 - Alcohol use, unspecified, in remission Magnesium 09/16/24 F31.81 - Bipolar II disorder, F42.9 - Obsessive-compulsive disorder, unspecified, Z01.818 - Encounter for other preprocedural examination, F10.91 - Alcohol use, unspecified, in remission ECG 12 lead EKG 09/16/24 F31.81 - Bipolar II disorder, F42.9 - Obsessive- compulsive disorder, unspecified, Z01.818 - Encounter for other preprocedural examination, F10.91 - Alcohol use, unspecified, in remission Counseling and coordination of Care Details-Self Mgmt counseling: Extensive discussion regarding managing his life given current situation stress related to his And longstanding concerns regarding treatment for bipolar disorder Medication management counseling: Effectiveness, Side effects and Dosing range Diagnosis and Prognosis Counseling: Impact of diagnosis on life functions, Problematic behaviors secondary to diagnosis and Adequacy of current interventions Details: I spent [40] minutes reviewing the record, seeing the patient and documenting in the medical record. Counseling provided to the patient/caregiver as outlined below. Addressed patient/caregiver concerns regarding current medication regime including effective adherence. Addressed patient/caregiver concerns regarding diagnosis and prognosis including accuracy of diagnosis, prognosis over time, impact of diagnosis. Addressed patient/caregiver concerns regarding impact of recent stressors. 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 He lives with his and two children in [facility]. 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 His is a nurse has been verbally aggressive . He does have a history of alcohol abuse reportedly sober Substance History: hx alcohol abuse denies current Coding Level of Care Code Est Pt Level 3 (82716) Therapy 30m w/E&M (51946) Diagnoses Bipolar 2 disorder F31.81 OCD (obsessive compulsive disorder) F42.9 Alcohol use disorder in remission F10.91
--- OUTSIDE RECORDS SUMMARY | 2024-09-16 12:14 | XMS_ITS | Clinical Summary ---
Author Organization [facility] Address [address] [place] [id number] Care Team Providers Care Key Bed Installer Name Role Phone Juan Carlos Richardson MD Primary Care Provider [phone] Allergies No known active allergies Medications dorzolamide-greg olol (COSOPT) 2-0.5 % ophthalmic solutionIndicat ions:Traumatic glaucoma, left, severe stage INSTILL ONE DROP IN THE LEFT EYE TWO TIMES A DAY 10 mL 2 06/02/2024 Active Encounters Date Type Department Care Team Description 08/11/2024 11:00 AM EDT Office Visit [facility], [address] [phone] David Ulloa MD Choroidal rupture of left eye (Primary Dx); Retinal scar of left eye; Traumatic glaucoma, left, severe stage from Last 3 Months Social History Tobacco Use Types Packs/Day Years Used Date Smoking Tobacco: Never Assessed Sex and Gender Information Value Date Recorded Sex Assigned at Not on file Legal Sex Male 6:20 PM EDT Gender Identity Not on file Sexual Orientation Not on file Plan of Treatment Upcoming Encounters Date Type Department Care Team (Late st Contact Info) Description 02/10/2025 9:45 AM EDT Office Visit [facility], [address] [phone] David Ulloa MD [address] [place] [phone] (Fax) Health Maintenance Due Date Last Done Comments Hepatitis C Virus Screening 1965 HIV Screening 1978 DTaP/Tdap/Td Vaccines (1 - Tdap) 1984 Hepatitis B Vaccines (1 of 3 - 19+ 3-dose series) 1984 Colonoscopy 2010 Pneumococcal Vaccines 50+ (1 of 1 - PCV) 09/14/2015 Zoster (Shingles) Vaccine (1 of 2) 09/14/2015 COVID-19 Vaccine (4 - 2023-2 5 season) 2024 12/20/2020, 06/26/2020, 06/05/2020 Influenza Vaccine 12/03/2024 03/02/2024, , 02/26/2022, Additional history exists Medical Devices Implanted Type Area Music Educator Device Identifier Shelf Expiration Date Model / Serial / Lot Lens Iol 0 D +10 Victor [employer] Mod L [id number] 13mm 6mm Posterior Chamber - [id number] Implanted:Qty: 1 on 06/17/2016 by David Ulloa MD at [facility], [employer] [id number] / [id number] / Insurance [facility] Care Teams Key Bed Installer Relationship Specialty Start Date End Date Juan Carlos Richardson MD [address] [place] [id number] PCP - General 05/23/16
--- OUTSIDE RECORDS SUMMARY | 2024-09-16 12:14 | XMS_ITS | Referral Summary ---
Author Organization [facility] Address [address] [place] [address] Care Team Providers Care Sole Dyer Name Role Phone Jamal Toth Primary Care Provider [phone] Allergies Active Allergy Reactions Criticality Noted Date [...] Not on file Insurance [employer] Care Teams Sole Dyer Relationship Specialty Start Date End Date Jamal Toth: [phone] [place] [id number] PCP - General Internal Medicine 07/25/22
--- OUTSIDE RECORDS SUMMARY | 2024-09-16 12:14 | XMS_ITS ---
Author Name [facility] Organization Unknown History of Medication Use Medication Directions Dispensed Refills Start Date End Date Stat us dorzolamide-timolol (COSOPT) 2-0.5 % ophthalmic solution INSTILL ONE DROP IN THE LEFT EYE TWO TIMES A DAY 06/02/2024 active Problems Problem Status Onset Date Problem Type Date of Resoluti on Source Retinal scar of left eye active EncounterDiagnosisAct [facility] Traumatic glaucoma, left, severe stage active EncounterDiagnosisAct [facility] Choroidal rupture of left eye active EncounterDiagnosisAct [facility] Encounters Encounter Type Encounter Reason Primary Diagnosis Location Date Ambulatory Follow-up Follow-up [facility] 08/11/2024 Ambulatory [facility] 02/11/2024 Care Team Organization Name Specialty Phone Email Start Date End [facility] NULL Primary Care 02/13/2024 2024 [facility] NULL Primary Care 01/16/2024
--- OUTSIDE RECORDS SUMMARY | 2024-09-16 12:14 | XMS_ITS | Clinical Summary ---
Author Organization [facility] Address [address] [place] [address] Care Team Providers Care Retort Condenser Attendant Name Role Phone Unavailable Primary Care Provider Unavailabl e Social History Tobacco Use Types Packs/Day Years Used Date Smoking Tobacco: Never Assessed Sex and Gender Information Value Date Recorded Sex Assigned at Not on file Gender Identity Not on file Sexual Orientation Not on file Plan of Treatment Not on file
--- OUTSIDE RECORDS SUMMARY | 2024-09-16 12:14 | XMS_ITS | Clinical Summary ---
Author Organization [facility] Address [address] [place] [address] Care Team Providers Care Install Technician Name Role Phone Jamal Toth Primary Care Provider [phone] Allergies Active Allergy Reactions Criticality Noted Date [...] 2023-2 5 season) 2024 12/20/2020, 06/26/2020, 06/05/2020 Alcohol/Substance Use Screening 05/05/2024 Depression Screening and Follow-Up 05/05/2024 Social Drivers of Health Michelle ual Screening 05/05/2024 Influenza Vaccine (Season Ended) 2025 02/26/2022, 02/26/2022, 01/15/2021, Additional history exists DTaP,Tdap,and Td Vaccines (3 - Td or Tdap) 12/12/2030 12/12/2020, 01/30/2012 RSV Vaccine (60+ years old a nd patients) (1 - 1-dose 75+ series) 2040 Insurance [employer] Care Teams Install Technician Relationship Specialty Start Date End Date Jamal Toth [address] [place] [phone] PCP - General Internal Medicine 07/25/22
== END 2024-09-16 13:07 | disposition home or self-care (01) ==
LOC: HO.HOP 11:02
PROVIDERS: PCP Family Medicine; Visit Provider Psychiatry & Neurology Psychiatry
DX: F31.81 Bipolar II disorder (principal); F42.9 Obsessive-compulsive disorder, unspecified; F10.91 Alcohol use, unspecified, in remission
CPT/HCPCS: 90833; 99213

== ENCOUNTER 2024-11-25 11:32 | Outpatient (AMB) | payer OTHER, MEDICAID, SELFPAY ==
--- NOTE | 2024-11-25 12:18 | A.OFFPSYCH_ITS ---
Intake Intake Visit Reasons: depression Allergies iron (IRON) Allergy (Severe, Unverified 01/20/20 18:11) UNKNOWN HPI- Psychiatric Chief Complaint: depression HPI Narrative: Patient seen psychiatric follow-up. Had talked about perhaps starting lithium but did not get blood work. Continues to describe periods of depression and anxiety describes periods of hypomania at times impulsive spending that he tries to do his way out of. Patient has been resistant to mood stabilizing agents times years now accept for Seroquel at times which she uses intermittently at HS clonazepam generally b.i.d. patient also dealing with OCD chronic anxiety regarding physical condition of his and her emotional state. Patient is in regular counseling. Used to be able to excise regularly has been dealing with left leg weakness status post spinal surgery and status toes post hip replacement. Past Psychiatric History: 49 yo male returns foacts his life r followup. Has not been seen since July 2014. The patient has been off Trileptal for the past 3 months. His a history of bipolar disorder, marked by periods of depression, and elevated mood state, particularly in the spring and summer. In the past. She would self medicate with alcohol, but has been sober for one year. He is meditating trying to get regular. Sleep, and manage his stress in such a way as to not trigger. His bipolar disorder. 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 Has been working in [place] with drissDenise poole/ Pt is dealing with the of his father over past yr Pt has been in therapy still feels stable , balancing family and work. works pt supportive family and [employer]. 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 Mild expensive periods and mild depressive periods. He is generally able to manage his life trying to work at work balance. Things at home and work are going well. No psychotic episodes, no serious depressive episodes. Patient does have Seroquel as needed. He does use Klonopin for sleep and breakthrough hypomaniaPatient also uses for stroll for sleep. No recent use of mood stabilizing agents such as Trileptal past treatment with lithium. 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 His has been having significant medical difficulty in the patient was forced to resign from his work so he could be home in take care of the children. His is currently out of work. He has generally not been taking Trileptal or SeroquelHe denies any civic significant depressive episodes some mild periods practically of the winter occasional hypomanic periods. 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 This is a tele health appointment patient gives consent. Patient has been overwhelmed and stress with multiple factors. His has problems with chronic pericarditis in supraventricular tachycardia and has chronic pain causing significant irritability, health problems and stress. The patient had also been in a hypomanic state and bought a number of expensive cars on credit and this has been somewhat crushing to him and has been overwhelming. Difficulty with sleep and anxiety. No thoughts of self-harm. Patient remains sober. Clonazepam has been helpful. Only taking limited amounts of Seroquel. Chronically has avoided mood stabilizing agents because of significant weight gain lethargy. 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 Has limited support and help at this time. Current note for 07/06/2020 Patient seen in psychiatric follow-up. The patient's mood at this point has been chronically anxious cycling with periods of agitation irritability periods of insomnia but patient basically maintaining his functioning ability to manage his business and his children. He is on clonazepam at HS strongly urged regular use of Seroquel at bedtime has not wanted to go back on other mood stabilizing agents such as lithium Depakote Tegretol. He denies periods of marked impulsive overspending he states he has been managing the family's finances he last year over spent on investment in exotic cars. Strongly urged regular sleep habits patient denies regular alcohol use which has been a problem in the past. 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 Patient has generally not been willing to take a mood stabilizing agent stated they were all to sedating made him lethargic or significant weight gain. He does intermittently take Seroquel we have talked about taking Seroquel on a regular basis had to try and train his sleep. Patient denies thoughts of harm to himself or others. He states he is able to function does count on his periods of hypomania past alcohol use and self- medication denies currently Current note for 02/27/2021 Patient seen in psychiatric follow-up Patient has been difficult time he tends to be quite stoic his had been out with surgery feeling overwhelmed taking care of her taking care of kids. Has had more anxiety irritability periods of cycling. He has not been willing essentially to use any treatment mood stabilizing agents has felt in the past that they were Sav have him emotionally or cause severe weight gain. The patient has periods of despair he denies any active thoughts of self-harm. His also been having significant pain and feels he has not been giving answers from his physician. May need hip surgery. Patient denies that he has been actively drinking. Patient continues to supervise his children has been dealing with his 's chronic illness and myocarditis pericarditis which they have been unable to manage. She had recent surgery this disc 0 okay. The patient with some periods of mixed states he denies any thoughts of self-harm. He does continue to sees therapist regularly we have discussed how over time bipolar disorder cannot just be managed through counseling alone Had bad experiences with medication the past he has been accepting low-dose Seroquel intermittently clonazepam. For hoping to train sleep. Patient again adamantly denies any thoughts of harm to himself or others despite feeling overwhelmed and upset over what orthopedic surgery may mean for him. current note for 04/11/21 Pt seen in f/u mood improved dealing with issues in better way pt on steroid taper did not become manic took 100 mg hs seroquel while on steroids . Patient's also participated stated patient was doing better cyst seen more able to handle things did have periods of anxiety with prednisone and agitation. We have discussed need for managing sleep-wake cycle and bipolar disorder. The patient did eventually require back surgery he is recovering Current note for June 06, 2021 Patient seen psychiatric follow-up. The patient continues to have some degree of anxiety feels somewhat overwhelmed. He did have recent surgery Mental Status Exam Mental Status Exam Patient Appearance: Well Grooomed Patient Orientation: Person, Place, Time and Situation Level of Consciousness: Awake Patient Behavior: Appropriate Mood Description: Apprehensive Affect Description: Constricted and Blunted Patient Cognition Impaired: No Ability to Follow Directions: Good Speech Pattern: Clear Memory Description: Intact Hallucinations: None Delusions: Not Present Thought Process: Intact and Rumination Thought Content: positive for Intact, positive for Logical, negative for Suicidal Ideation or negative for Homicidal Ideation Depressive Symptoms: Increased Anxiety, Increased Irritability, Feelings of Worthlessness, Unhappiness and Loss of Energy Judgement: Fair Judgement and Insight: Discussed multiple treatment options for the patient including lithium. Handouts and literature given labs ordered patient seen to take in information Assessment and Plan Assessment & Plan (1) Bipolar 2 disorder: Status: Acute Code(s): F31.81 - Bipolar II disorder (2) OCD (obsessive compulsive disorder): Status: Acute Code(s): F42.9 - Obsessive-compulsive disorder, unspecified (3) Alcohol use disorder in remission: Status: Acute Code(s): F10.91 - Alcohol use, unspecified, in remission Plan The patient was again asked to get his labs checked risks benefits reviewed regarding use of lithium its help in perhaps stopping the endless cycle of hypomania followed by depression at the patient has been living through for a number of years. Also discussed the use of Seroquel for its antimanic and both antidepressant benefits and bipolar disorder. Discussed about patient's resistance to medication he has a loud Seroquel and clonazepam Downs no SI no psychosis he states he remains sober. Patient also has OCD. He has been under chronic stress with his with whom he feel that she can be quite critical and negativistic. The patient used to be able to run and use martial arts to maintain his mood but that has not been possible since spinal surgery and hip surgery. Continue Seroquel and clonazepam have discussed with patient that clonazepam can be used as adjunct but does not treat his bipolar disorder we also discussed perhaps the enjoyment he gets out of the highs in spite of the significant Down's no SI no psychosis Counseling and coordination of Care Details-Self Mgmt counseling: Issues related to dealing with cycling of bipolar disorder trying to manage his life and issues related to hesitancy regarding medication despite superficial acceptance at times. He did have bad experience in the past Medication management counseling: Effectiveness, Side effects and Adherence Diagnosis and Prognosis Counseling: Impact of diagnosis on life functions, Impact of family relationship and Adequacy of current interventions Details: I spent [38] minutes reviewing the record, seeing the patient and documenting in the medical record. Counseling provided to the patient/caregiver as outlined below. Addressed patient/caregiver concerns regarding current medication regime including effective adherence. Addressed patient/caregiver concerns regarding diagnosis and prognosis including accuracy of diagnosis, prognosis over time, impact of diagnosis. Addressed patient/caregiver concerns regarding impact of recent stressors. 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 He lives with his and two children in [facility]. 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 His is a nurse has been verbally aggressive . He does have a history of alcohol abuse reportedly sober Substance History: hx alcohol abuse denies current Coding Level of Care Code Est Pt Level 3 (70217) Therapy 30m w/E&M (91858) Diagnoses Bipolar 2 disorder F31.81 OCD (obsessive compulsive disorder) F42.9 Alcohol use disorder in remission F10.91
--- OUTSIDE RECORDS SUMMARY | 2024-11-25 12:25 | XMS_ITS | Clinical Summary ---
Author Organization [facility] Address [address] [place] [address] Care Team Providers Care Hardwood Floor Sander Name Role Phone Jamal Toth Primary Care Provider Allergies Active Allergy Reactions Criticality Noted Date [...] Health Michelle ual Screening 05/05/2024 Influenza Vaccine (#1) 2025 2, 02/26/2022, 01/15/2021, Additional history exists DTaP,Tdap,and Td Vaccines (3 - Td or Tdap) 12/12/2030 12/12/2020, 01/30/2012 RSV Vaccine (60+ years old a nd patients) (1 - 1-dose 75+ series) 2040 Insurance [employer] Care Teams Hardwood Floor Sander Relationship Specialty Start Date End Date Jamal Toth [address] [place] [id number] PCP - General Internal Medicine 07/25/22
--- OUTSIDE RECORDS SUMMARY | 2024-11-25 12:25 | XMS_ITS ---
Author Name [facility] Organization Unknown History of Medication Use Medication Directions Dispensed Refills Start Date End Date Stat us pregabalin (LYRICA) 75 MG capsule 10/21/2024 active QUEtiapine (SEROquel) 100 MG tablet 10/19/2024 active latanoprost (XALATAN) 0.005 % ophthalmic solution INSTILL ONE DROP IN THE LEFT EYE ONE HOUR BEFORE BEDTIME 09/30/2024 active OMEprazole (PriLOSEC) 20 MG capsule 09/05/2024 active dorzolamide-timolol (COSOPT) 2-0.5 % ophthalmic solution INSTILL ONE DROP IN THE LEFT EYE TWO TIMES A DAY 06/02/2024 active Allergies Allergen Reaction Severity Comment Documented Date Source Statu s LATEX UNKNOWN/PATIENT AND FAMILY UNABLE TO DEFINE 07/29/2022 [facility] active HYDROMORPHONE OTHER (SEE COMMENTS) Impulsivity, lack of awareness per 's call 07/12/22. 07/12/2022 [facility] active Problems Problem Status Onset Date Problem Type Date of Resolution Source Internal hemorrhoids active 2015-07-12 ProblemAct [facility] Right shoulder tendinitis active 2024-11-17 ProblemAct [facility] Chronic pain of right hip active 2022-01-29 ProblemAct [facility] Trochanteric bursitis of right hip active 2024-11-17 ProblemAct [facility] Obstructive sleep apnea active 2017-04-14 ProblemAct [facility] Post-traumatic osteoarthritis of right hip active 2022-01-29 ProblemAct [facility] Low back pain active 2022-01-29 ProblemAct [facility] T Lumbar radiculopathy active 2024-11-17 ProblemAct [facility] Arthritis of hip active 2024-11-17 ProblemAct [facility] Class 1 obesity active 2024-11-17 ProblemAct [facility] Anxiety active 2013-04-02 ProblemAct [facility] Inguinal hernia active 2017-06-02 ProblemAct [facility] Irritable bowel syndrome with constipation active 2022-04-16 ProblemAct [facility] History of thalassemia minor active 2022-01-29 ProblemAct [facility] History of anal fissures active 2015-08-21 ProblemAct [facility] Psoriasis active 2017-04-14 ProblemAct [facility] Status post total hip replacement, right active 2022-07-03 ProblemAct [facility] Asthma active 2019-06-09 ProblemAct [facility] Primary localized osteoarthrosis of right hip active 2022-06-18 ProblemAct [facility] Bipolar disorder active 2024-11-17 ProblemAct [facility] Traumatic glaucoma, left, severe stage active EncounterDiagnosisAct [facility] Elevated liver enzymes active 2024-11-17 ProblemAct [facility] Beta thalassemia trait active 2022-04-16 ProblemAct [facility] Pain of back and left lower extremity active 2024-11-17 ProblemAct [facility] Frontal sinusitis active 2024-11-17 ProblemAct [facility] Immunizations Vaccine Date Source Lot Number Status Influenza Virus Trivalent Sp lit Vaccine (MDV) IM 03/02/2024 CCT [id number] completed Influenza Virus Trivalent Sp lit Vaccine (MDV) IM 02/10/2023 CCT [id number] completed Influenza Virus Trivalent Sp lit Vaccine (MDV) IM 02/26/2022 CCT [id number] completed Influenza Virus Trivalent Sp lit Vaccine (MDV) IM 01/15/2021 CCT [id number] completed Tdap 12/12/2020 CCT [id number] completed Influenza Virus Trivalent Sp lit Vaccine (MDV) IM 01/12/2020 CCT [id number] completed Influenza Virus Trivalent Sp lit Vaccine (MDV) IM 02/02/2019 CCT [id number] completed Influenza Virus Trivalent Sp lit Vaccine (MDV) IM 01/20/2018 CCT [id number] completed Influenza Virus Trivalent Sp lit Vaccine (MDV) IM 02/07/2017 CCT [id number] completed Influenza Virus Trivalent Sp lit Vaccine (MDV) IM 03/24/2016 CCT [id number] completed DTaP 01/30/2012 CCT [id number] completed Pneumococcal Polysaccharide 23-Valent 12/14/2009 CCT [id number] completed Encounters Encounter Type Encounter Reason Primary Diagnosis Location Date Ambulatory Follow-up Follow-up [facility] 08/11/2024 Ambulatory [facility] 02/11/2024 Care Team Organization Name Specialty Phone Email Start Date End [facility] NULL Primary Care 02/13/2024 2024 [facility] NULL Primary Care 01/16/2024
--- OUTSIDE RECORDS SUMMARY | 2024-11-25 12:25 | XMS_ITS | Clinical Summary ---
Author Organization [facility] Address [address] [place] [address] Care Team Providers Care Rivet Hammer Machine Operator Name Role Phone Juan Carlos Richardson MD Primary Care Provider [phone] Allergies Active Allergy Reactions Criticality Noted Date Comments Hydromorphone Other (See Comments) Low 07/12/2022 Impulsivity, lack of awareness per 's call 07/12/22. Latex Rash/Dermatitis,Unkn own/ Patient and Family Unable to Define Medium 07/29/2022 Medications latanoprost (XALATAN) 0.005 % ophthalmic solutionIndica tions:Traumati c glaucoma, left, severe stage INSTILL ONE DROP IN THE LEFT EYE ONE HOUR BEFORE BEDTIME 2.5 mL 2 5 12/30/19 25 Active dorzolamide-ti molol (COSOPT) 2-0.5 % ophthalmic solutionIndica tions:Traumati c glaucoma, left, severe stage INSTILL ONE DROP IN THE LEFT EYE TWO TIMES A DAY 10 mL 2 5 05/09/19 26 Active QUEtiapine (SEROquel) 100 MG tablet 5 Active pregabalin (LYRICA) 75 MG capsule 5 Active OMEprazole (PriLOSEC) 20 MG capsule 5 Active dorzolamide-ti molol (COSOPT) 2-0.5 % ophthalmic solutionIndica tions:Traumati c glaucoma, left, severe stage INSTILL ONE DROP IN THE LEFT EYE TWO TIMES A DAY 10 mL 2 5 11/11/19 25 Discontinued Active Problems Problem Noted Date Diagnosed Date Frontal sinusitis 11/17/2024 Elevated liver enzymes 11/17/2024 Class 1 obesity 11/17/2024 Bipolar disorder 11/17/2024 Pain of back and left lower extremity 11/17/2024 Arthritis of hip 11/17/2024 Right shoulder tendinitis 11/17/2024 Physical exam 11/17/2024 Lumbar radiculopathy 11/17/2024 Trochanteric bursitis of right hip 11/17/2024 Status post total hip replacement, right 023 Primary localized osteoarthrosis of right hip Beta thalassemia trait 04/16/2022 Irritable bowel syndrome with constipation 04/16 History of thalassemia minor 01/29/2022 Chronic pain of right hip 01/29/2022 Overview (11/17/2024): Added automatically from request for surgery [id number] Low back pain 01/29/2022 Overview (11/17/2024): Added automatically from request for surgery [id number] Post-traumatic osteoarthritis of right hip 01/29 Asthma 06/09/2019 Inguinal hernia 06/02/2017 Psoriasis 04/14/2017 Obstructive sleep apnea 04/14/2017 History of anal fissures 08/21/2015 Internal hemorrhoids 07/12/2015 Anxiety 04/02/2013 Encounters Date Type Department Care Team Description 11/21/2024 Refill [facility], [place] [phone] David Ulloa MD Traumatic glaucoma, left, severe stage 11/19/2024 Refill [facility], [address] [phone] David Ulloa MD Traumatic glaucoma, left, severe stage 11/18/2024 Refill [facility], [address] David Ulloa MD Traumatic glaucoma, left, severe stage 11/09/2024 Refill [facility], [address] [phone] David Ulloa MD Traumatic glaucoma, left, severe stage 09/30/2024 [facility]ill [facility], [address] [phone] David Ulloa MD Traumatic glaucoma, left, severe stage (Primary Dx) from Last 3 Months Immunizations Immunization Administration Dates Next Due DTaP 01/30/2012 Influenza Virus Trivalent Sp lit Vaccine (MDV) IM 03/02/2024,02/10/2023,02/26/2022,01/15,01/12/2020,02/02/2019,01/20/2018 ,02/07/2017,03/24/2016 Pneumococcal Polysaccharide 23-Valent 12/14/2009 ,12/14/2009 Tdap 12/12/2020,12/12/2020 Social History Tobacco Use Types Packs/Day Years Used Date Smoking Tobacco: Never Assessed Sex and Gender Information Value Date Recorded Sex Assigned at Not on file Legal Sex Male 6:20 PM EDT Gender Identity Not on file Sexual Orientation Not on file Plan of Treatment Upcoming Encounters Date Type Department Care Team (Late st Contact Info) Description 12/06/2024 9:30 AM EDT Clinical Support [facility] [address], [place] [phone] Rubio Doss MD [address] [place] [phone] Marline Payne Au.D [address] [place] [phone] 02/10/2025 9:45 AM EDT Office Visit [facility], [address] [phone] David Ulloa MD [address] [place] [phone] (Fax) Health Maintenance Due Date Last Done Comments Hepatitis C Virus Screening 1965 HIV Screening 1978 Hepatitis B Vaccines (1 of 3 - 19+ 3-dose series) 1984 Colonoscopy 2010 Pneumococcal Vaccines 50+ (2 of 2 - PCV) 12/14/2010 12/14/2009, 12/14/2009 Zoster (Shingles) Vaccine (1 of 2) 09/14/2015 COVID-19 Vaccine (4 - 2023-2 5 season) 2024 12/20/2020, 06/26/2020, 06/05/2020 Influenza Vaccine 12/03/2024 03/02/2024, , 02/26/2022, Additional history exists DTaP/Tdap/Td Vaccines (4 - T d or Tdap) 12/12/2030 12/12/2020, 12/12/2020, 01/30/2012 Medical Devices Implanted Type Area Bdr Device Identifier Shelf Expiration Date Model / Serial / Lot Lens Iol 0 D +10 Victor Hugo Mod L [id number] 13mm 6mm Posterior Chamber - [id number] Implanted:Qty: 1 on 06/17/2016 by David Ulloa MD at [facility] [place] [employer] [id number] / [id number] / [place] [address] [address] Care Teams Rivet Hammer Machine Operator Relationship Specialty Start Date End Date Juan Carlos Richardson MD [address] [place] [id number] PCP - General 05/23/16
--- OUTSIDE RECORDS SUMMARY | 2024-11-25 12:25 | XMS_ITS | Encounter Summary ---
Author Organization [facility] Address [address] [place] [id number] Phone Care Team Providers Care Examination Scorer Name Role Phone Joey Lam MD Primary Care Provider [phone] Encounter Details Date Type Department Care Team (Late st Contact Info) Description 04/02/2021 Ancillary Orders [facility] Orthopedics & Sports Medicine [address] [place] [phone] Karen Rojo MD [address] [place] [address] Orthopedics & Sports Medicine, [facility] [place] [address] [email or web address] Social History Tobacco Use Types Packs/Day Years Used Date Smoking Tobacco: Never Smokeless Tobacco: Never Alcohol Use Standard Drinks/Week Comments Not Currently 0 (1 standard drink = 0.6 oz pur e alcohol) Sex and Gender Information Value Date Recorded Sex Assigned at Not on file Legal Sex Male 9:40 PM EDT Gender Identity Not on file Sexual Orientation Not on file documented as of this encounter Plan of Treatment Not on file documented as of this encounter Visit Diagnoses Not on filedocumented in this encounter Care Teams Examination Scorer Relationship Specialty Start Date End Date Joey Lam MD PCP - General Internal Medicine 12/14/20 documented as of this encounter Additional Source Comments The information contained in this document represents components of the legal health record. It is not the complete legal health record.[facility]
--- OUTSIDE RECORDS SUMMARY | 2024-11-25 12:25 | XMS_ITS | Clinical Summary ---
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
== END 2024-11-25 11:53 | disposition home or self-care (01) ==
LOC: HO.HOP 11:32
PROVIDERS: PCP Family Medicine; Visit Provider Psychiatry & Neurology Psychiatry
DX: F31.81 Bipolar II disorder (principal); F42.9 Obsessive-compulsive disorder, unspecified; F10.91 Alcohol use, unspecified, in remission
CPT/HCPCS: 90833; 99213

== ENCOUNTER 2025-03-08 11:04 | Outpatient (AMB) | payer OTHER, MEDICAID, SELFPAY ==
--- NOTE | 2025-03-08 11:21 | MHC.OFFVISPS ---
Intake Intake Visit Reasons: depression Allergies iron (IRON) Allergy (Severe, Unverified 01/20/20 18:11) UNKNOWN HPI- Psychiatric Chief Complaint: depression HPI Narrative: Patient is a 59-year-old male has been having marital difficulties and distress for number of years With a history of bipolar disorder essentially untreated history of perceived adverse effects from mood stabilizing agents in the past have discussed multiple times his in some treatment longstanding depressive episodes anxiety has taken low-dose Seroquel at bedtime and clonazepam b.i.d.. Past his alcohol use states has been sober. We have discussed multiple times benefits and alternatives treatment for his bipolar disorder and how it might affect his longstanding depressive episodes denies SI; used to have more euphoric state The patient presented due to ongoing physical and mental health challenges, including chronic pain and mood disturbances, with a history of bipolar disorder and recent back surgery complications. The patient reported persistent symptoms including back pain, numbness down the left leg, daily headaches, and high-pitched tinnitus. The patient experienced hearing difficulties and described speech as garbled. Attempts to manage these symptoms with phyl-yrm-ijbvnph pain medications such as Advil, Tylenol, and ibuprofen were ineffective, providing minimal relief but causing stomach discomfort. The patient noted a history of back surgery where a cyst was removed, but subsequent nerve damage was suggested by the surgeon, Doctor Da Silva. The patient also described complications from a previous hip replacement on the right side, resulting in chronic pain and delayed physical therapy due to an initially non-healing incision. The patient expressed significant distress over these physical issues, compounded by stressful family dynamics and concerns about their daughter's safety and mental health. Past Psychiatric History: 49 yo male returns foacts his life r followup. Has not been seen since July 2014. The patient has been off Trileptal for the past 3 months. His a history of bipolar disorder, marked by periods of depression, and elevated mood state, particularly in the spring and summer. In the past. She would self medicate with alcohol, but has been sober for one year. He is meditating trying to get regular. Sleep, and manage his stress in such a way as to not trigger. His bipolar disorder. 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 [employer] Has been working in [place] with broderick poole/ Pt is dealing with the of his father over past yr Pt has been in therapy still feels stable , balancing family and work. 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 Mild expensive periods and mild depressive periods. He is generally able to manage his life trying to work at work balance. Things at home and work are going well. No psychotic episodes, no serious depressive episodes. Patient does have Seroquel as needed. He does use Klonopin for sleep and breakthrough hypomaniaPatient also uses for stroll for sleep. No recent use of mood stabilizing agents such as Trileptal past treatment with lithium. 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 His has been having significant medical difficulty in the patient was forced to resign from his work so he could be home in take care of the children. His is currently out of work. He has generally not been taking Trileptal or SeroquelHe denies any civic significant depressive episodes some mild periods practically of the winter occasional hypomanic periods. 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 This is a tele health appointment patient gives consent. Patient has been overwhelmed and stress with multiple factors. His has problems with chronic pericarditis in supraventricular tachycardia and has chronic pain causing significant irritability, health problems and stress. The patient had also been in a hypomanic state and bought a number of expensive cars on credit and this has been somewhat crushing to him and has been overwhelming. Difficulty with sleep and anxiety. No thoughts of self-harm. Patient remains sober. Clonazepam has been helpful. Only taking limited amounts of Seroquel. Chronically has avoided mood stabilizing agents because of significant weight gain lethargy. 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 Has limited support and help at this time. Current note for 07/06/2020 Patient seen in psychiatric follow-up. The patient's mood at this point has been chronically anxious cycling with periods of agitation irritability periods of insomnia but patient basically maintaining his functioning ability to manage his business and his children. He is on clonazepam at HS strongly urged regular use of Seroquel at bedtime has not wanted to go back on other mood stabilizing agents such as lithium Depakote Tegretol. He denies periods of marked impulsive overspending he states he has been managing the family's finances he last year over spent on investment in exotic cars. Strongly urged regular sleep habits patient denies regular alcohol use which has been a problem in the past. 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 Patient has generally not been willing to take a mood stabilizing agent stated they were all to sedating made him lethargic or significant weight gain. He does intermittently take Seroquel we have talked about taking Seroquel on a regular basis had to try and train his sleep. Patient denies thoughts of harm to himself or others. He states he is able to function does count on his periods of hypomania past alcohol use and self-medication denies currently Current note for 02/27/2021 Patient seen in psychiatric follow-up Patient has been difficult time he tends to be quite stoic his had been out with surgery feeling overwhelmed taking care of her taking care of kids. Has had more anxiety irritability periods of cycling. He has not been willing essentially to use any treatment mood stabilizing agents has felt in the past that they were Sav have him emotionally or cause severe weight gain. The patient has periods of despair he denies any active thoughts of self-harm. His also been having significant pain and feels he has not been giving answers from his physician. May need hip surgery. Patient denies that he has been actively drinking. Patient continues to supervise his children has been dealing with his 's chronic illness and myocarditis pericarditis which they have been unable to manage. She had recent surgery this disc 0 okay. The patient with some periods of mixed states he denies any thoughts of self-harm. He does continue to sees therapist regularly we have discussed how over time bipolar disorder cannot just be managed through counseling alone Had bad experiences with medication the past he has been accepting low-dose Seroquel intermittently clonazepam. For hoping to train sleep. Patient again adamantly denies any thoughts of harm to himself or others despite feeling overwhelmed and upset over what orthopedic surgery may mean for him. current note for 04/11/21 Pt seen in f/u mood improved dealing with issues in better way pt on steroid taper did not become manic took 100 mg hs seroquel while on steroids . Patient's also participated stated patient was doing better cyst seen more able to handle things did have periods of anxiety with prednisone and agitation. We have discussed need for managing sleep-wake cycle and bipolar disorder. The patient did eventually require back surgery he is recovering Current note for June 06, 2021 Patient seen psychiatric follow-up. The patient continues to have some degree of anxiety feels somewhat overwhelmed. He did have recent surgery Mental Status Exam Mental Status Exam Narrative: Patient casually dressed sad and stressed looking speech generally year goal-directed topic focused on his chronic medical issues issues at home his 's medical problems limited focused on his own treatment. Intermittently despairing denies thoughts of self-harm mood depressed apprehensive insight judgment limited by his lack of willingness look at treatment options have tapered down on clonazepam over time no HI no delusions Assessment and Plan Assessment & Plan (1) Bipolar 2 disorder: Status: Acute Code(s): F31.81 - Bipolar II disorder (2) OCD (obsessive compulsive disorder): Status: Acute Code(s): F42.9 - Obsessive-compulsive disorder, unspecified Plan The patient did not report any new allergies. The patient is currently taking pregabalin (Lyrica) and expressed a desire to discontinue it due to concerns about the potential increase in pain and tingleness upon cessation. The patient is experiencing physical symptoms such as numbness and tingling on the left side, post-back surgery, and pain on the right side post-hip replacement. ASSESSMENT 1. 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 Bipolar disorder with predominant depressive symptoms possibly exacerbated by chronic physical pain and stress. 3. Tinnitus potentially induced by ototoxic medication and/or dental issues. PLAN I provided the patient with educational materials on tinnitus and bipolar disorder management. Recommendations included exploring alpha-lipoic acid for neuropathy and L-methylfolate for mood stabilization. I advised the patient to undergo blood work to evaluate potential treatment options and consider a light box for possible seasonal depression, ensuring no manic episodes ensue. Follow-up was scheduled for six weeks to reassess symptoms and treatment efficacy. Encouragement was provided to continue therapeutic engagement and explore stress-reducing activities. Counseling and coordination of Care Details: I spent [] minutes reviewing the record, seeing the patient and documenting in the medical record. Counseling provided to the patient/caregiver as outlined below. Addressed patient/caregiver concerns regarding current medication regime including effective adherence. Addressed patient/caregiver concerns regarding diagnosis and prognosis including accuracy of diagnosis, prognosis over time, impact of diagnosis. Addressed patient/caregiver concerns regarding impact of recent stressors. 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 He lives with his and two children in [facility]. He does manage in [employer]. His is a nurse has been verbally aggressive . He does have a history of alcohol abuse reportedly sober Substance History: hx alcohol abuse denies current Coding Level of Care Code Est Pt Level 3 (83366) Therapy 30m w/E&M (49015) Diagnoses Bipolar 2 disorder F31.81 OCD (obsessive compulsive disorder) F42.9
== END 2025-03-08 12:26 | disposition home or self-care (01) ==
LOC: HO.HOP 11:04
PROVIDERS: PCP Family Medicine; Visit Provider Psychiatry & Neurology Psychiatry
DX: F31.81 Bipolar II disorder (principal); F42.9 Obsessive-compulsive disorder, unspecified
CPT/HCPCS: 90833; 99213